=== PATIENT | male | born 1965 | race Caucasian/White ===

== ENCOUNTER 2017-04-03 18:25 | Inpatient (IN) | payer OTHER ==
[~2017-04-03] VITALS: Ht 149.9 cm; Wt 89.5 kg
[~2017-04-03 18:25] MED LIST: ACET125T2 PO; ACET650S10 PR; ATV5X PO; BISA1TAB15 PO; CITA40TA4 PO; DLN100 PO; ETHO250S PO; IPRASOL4 INH; KLN5X PO; MOML PO; OXYC1CAP5 PO; PHEN100C88 PO; PHEN16.2 PO; PRLSR20 PO; SENN-104 PO; SODIENE PR; TYL325X PO
[2017-04-03] MEDS ORDERED: PIPERACILLIN/TAZOBACTAM 4.5 GM/100ML D5W IV STA (18:32)
[2017-04-03] MEDS ORDERED: ACETAMINOPHEN 500 MG TAB PO STA (18:32)
[2017-04-03] MEDS ORDERED: ALBUT/IPRATROP 3MG/0.5MG NEB 3 ML VIAL INH STA (18:32)
[2017-04-03] MEDS ORDERED: SODIUM CHLORIDE 0.9% 1000ML 500 ML IV ONE (18:32)
--- NOTE | 2017-04-03 18:37 | EMERGENCY ROOM VISIT NOTE ---
History Report prepared by Beccaibanup: Kristina Kong Under the Supervision of: Dr. Nicolas Khan M.D. First contact with patient: 18:26 Stated Complaint: fever/ History of Present Illness The patient is a 51 year old male who presents to the Emergency Room with complaints of a persistent fever. He was brought to the ED via EMS. EMS reports the patient developed a fever yesterday. Today he started "grunting and grimacing", so his sister, who is a nurse, became suspicious that there might be something more serious wrong, as the patient has a history of bowel obstruction. EMS notes the patient was having some difficulty breathing, so he was given Oxygen in the field, which provided good relief. The patient has a signed DNR on file. Lab work from earlier today shows a WBC count of 13, no renal failure, urine was suspicious for infection, and stool C-Diff testing was negative. Source of History: patient, EMS History Limited By: other (MR) Onset: yesterday Position: other (global) Timing: other (persistent) Associated Symptoms: + SOB Review of Systems Unobtainable secondary to mental state. Past Medical & Surgical Medical Problems: (1) Bowel obstruction (2) Cognitive disorder (3) Hydrocephalus (4) Obstructive hydrocephalus (5) Obstructive hydrocephalus (6) Seizure disorder (7) Sepsis (8) UTI (urinary tract infection) Surgical Problems: (1) Colostomy in place (2) Status post ventriculoperitoneal shunt Family History No significant family history Social History Smoking Status: Unknown if Ever Smoked Alcohol Use: none Drug Use: none Marital Status: single Housing Status: retirement Occupation Status: disabled Current/Historical Medications Scheduled Acetazolamide (Acetazolamide), 125 MG PO BID Bisacodyl (Bisacodyl), 5 MG PO DAILY Cholecalciferol (Vitamin D3), 1,000 UNITS PO TID Citalopram (Citalopram Hydrobromide), 40 MG PO DAILY Clonazepam (Clonazepam), 0.5 MG PO BID Ethosuximide (Zarontin), 250 MG PO BID Lorazepam (Lorazepam), 0.5 MG PO BID Phenobarbital (Phenobarbital), 16.2 MG PO 5XDAY Phenytoin (Phenytoin Infatabs), 150 MG PO QPM Phenytoin (Dilantin Chewable), 150 MG PO QAM Sennosides-Docusate Sodium (Senna-S), 2 TAB PO BID Allergies Coded Allergies: No Known Allergies (Unverified , 05/10/15) Physical Exam Vital Signs Date Time Temp Pulse Resp B/P (MAP) Pulse Ox O2 Delivery O2 Flow Rate FiO2 04/03/17 22:04 98 20 113/90 93 Nasal Cannula 4.0 04/03/17 20:59 99 20 115/87 93 Nasal Cannula 2.0 04/03/17 19:27 102 21 155/96 100 Nasal Cannula 4.0 04/03/17 19:06 104 04/03/17 18:41 38.2 103 22 157/110 100 Nasal Cannula 4.0 04/03/17 18:41 100 Nasal Cannula 4.0 Physical Exam GENERAL: Patient is in no acute distress. HEENT: No acute trauma, normocephalic atraumatic, mucous membranes moist, no nasal congestion, no scleral icterus. NECK: No stridor, no adenopathy, no meningismus, trachea is midline. LUNGS: Clear to auscultation bilaterally, no wheeze, no rhonchi, breath sounds equal. HEART: Mildly tachycardic with a regular rhythm, no murmurs. ABDOMEN: Soft, nontender, bowel sounds positive, no hernias, no peritonitis. Ostomy present with an empty bag. EXTREMITIES: No cyanosis or edema, full range of motion of all the joints without pain or difficulty, no signs for acute trauma. NEUROLOGIC: MR noted, awake, moving all extremities. SKIN: No rash, no jaundice, no diaphoresis. Medical Decision & Procedures ER Provider Diagnostic Interpretation: Radiology results as stated below per my review and radiologist interpretation: CHEST ONE VIEW PORTABLE CLINICAL HISTORY: Sepsis. COMPARISON STUDY: Chest radiograph May 24, 2015 FINDINGS: Ventriculostomy catheter is partially imaged. Chronic deformity of the proximal right humerus is incidentally noted. No pneumothorax or pleural effusion is identified. Cardiomediastinal silhouette is stable. Mild interstitial prominence remains unchanged. The appearance of the chest is unchanged. Apparent right hilar fullness is likely due to vessels. This is similar to earlier studies. IMPRESSION: No acute cardiopulmonary findings. No significant change in appearance of the chest. Electronically signed by: Basil Ponce M.D. 04/03/2017 7:[address] OF THE ABDOMEN AND PELVIS WITHOUT CONTRAST CLINICAL HISTORY: Abdominal pain. Possible bowel obstruction. Fever. COMPARISON STUDY: CT of the abdomen and pelvis June 02, 2015. TECHNIQUE: Axial images of the abdomen and pelvis were obtained without IV contrast. Images were reviewed in the axial, sagittal, and coronal planes. A dose lowering technique was utilized adhering to the principles of ALARA. FINDINGS: Visualized portions of the lower chest demonstrate a linear radiodensity within the left lower lobe which is unchanged. This may be within a pulmonary artery. Note is made of moderate right hydronephrosis due to a 7 mm proximal right ureteral calculus. Numerous additional bilateral renal calculi are present. There are no left ureteral calculi. The bladder is distorted and displaced anteriorly. There is mild right perinephric and periureteral ureteral infiltration. Evaluation of the remainder of the abdomen and pelvis is suboptimal as unenhanced exam. Several water attenuation hepatic lesions likely reflect cysts. Unenhanced images of the spleen, adrenal glands and pancreas are unremarkable. There are findings suggestive of a diverting colostomy. A parastomal hernia is noted which contains multiple loops of bowel. There is no resultant bowel obstruction. There is a large amount of stool within the rectum. No pneumatosis, free air or portal venous gas is present. Ventriculostomy catheter is noted and terminates within the right mid abdomen. Visualized portions of the catheter appear intact. The lumbar spine compression fractures are noted. IMPRESSION: 1. Moderate right hydronephrosis due to a 7 mm proximal right ureteral calculus. 2. Bilateral nephrolithiasis. 3. Status post diverting loop colostomy. Associated parastomal hernia/diastasis recti which contains multiple bowel loops without resultant bowel obstruction. Massive amount of stool within the rectum consistent with fecal impaction. Electronically signed by: Basil Ponce M.D. 04/03/2017 9:08 PM Laboratory Results 04/03/17 19:00 Red Blood Count 5.03, Mean Corpuscular Volume 94.2, Mean Corpuscular Hemoglobin 31.0, Mean Corpuscular Hemoglobin Concent 32.9, Mean Platelet Volume 11.2, Neutrophils (%) (Auto) 74.4, Lymphocytes (%) (Auto) 11.9, Monocytes (%) (Auto) 12.1, Eosinophils (%) (Auto) 1.0, Basophils (%) (Auto) 0.3, Neutrophils # (Auto ) 11.42, Lymphocytes # (Auto) 1.83, Monocytes # (Auto) 1.86, Eosinophils # (Auto ) 0.16, Basophils # (Auto) 0.05 04/03/17 19:00 04/03/17 21:00 Test 04/03/17 19:00 04/03/17 19:07 04/03/17 19:15 04/03/17 21:00 White Blood Count 15.36 K/uL (4.8-10.8) Red Blood Count 5.03 M/uL (4.7-6.1) Hemoglobin 15.6 g/dL (14.0-18.0) Hematocrit 47.4 % (42-52) Mean Corpuscular Volume 94.2 fL (80-100) Mean Corpuscular Hemoglobin 31.0 pg (25-34) Mean Corpuscular Hemoglobin Concent 32.9 g/dl (32-36) Platelet Count 283 K/uL (130-400) Mean Platelet Volume 11.2 fL (7.4-10.4) Neutrophils (%) (Auto) 74.4 % Lymphocytes (%) (Auto) 11.9 % Monocytes (%) (Auto) 12.1 % Eosinophils (%) (Auto) 1.0 % Basophils (%) (Auto) 0.3 % Neutrophils # (Auto) 11.42 K/uL (1.4-6.5) Lymphocytes # (Auto) 1.83 K/uL (1.2-3.4) Monocytes # (Auto) 1.86 K/uL (0.11-0.59) Eosinophils # (Auto) 0.16 K/uL (0-0.5) Basophils # (Auto) 0.05 K/uL (0-0.2) RDW Standard Deviation 47.3 fL (36.4-46.3) RDW Coefficient of Variation 13.8 % (11.5-14.5) Immature Granulocyte % (Auto) 0.3 % Immature Granulocyte # (Auto) 0.04 K/uL (0.00-0.02) Anion Gap 7.0 mmol/L (3-11) Est Creatinine Clear Calc Drug Dose 102.1 ml/min Estimated GFR () 121.1 Estimated GFR (Non- 104.5 BUN/Creatinine Ratio 12.1 (10-20) Calcium Level 9.3 mg/dl (8.5-10.1) Total Bilirubin 0.3 mg/dl (0.2-1) Alanine Aminotransferase (ALT/SGPT) 20 U/L (12-78) Alkaline Phosphatase 122 U/L (45-117) Total Protein 8.7 gm/dl (6.4-8.2) Albumin 3.1 gm/dl (3.4-5.0) Globulin 5.6 gm/dl (2.5-4.0) Albumin/Globulin Ratio 0.6 (0.9-2) Bedside Lactic Acid Venous 1.36 mmol/L (0.90-1.70) Urine Color YELLOW Urine Appearance CLOUDY (CLEAR) Urine pH 6.5 (4.5-7.5) Urine Specific [place] 1.013 (1.000-1.030) Urine Protein TRACE (NEG) Urine Glucose (UA) NEG (NEG) Urine Ketones NEG (NEG) Urine Occult Blood 1+ (NEG) Urine Nitrite NEG (NEG) Urine Bilirubin NEG (NEG) Urine Urobilinogen NEG (NEG) Urine Leukocyte Esterase LARGE (NEG) Urine WBC (Auto) >30 /hpf (0-5) Urine RBC (Auto) 0-4 /hpf (0-4) Urine Hyaline Casts (Auto) 1-5 /lpf (0-5) Urine Epithelial Cells (Auto) 5-10 /lpf (0-5) Urine Bacteria (Auto) 4+ (NEG) Prothrombin Time 11.5 SECONDS (9.0-12.0) Prothromb Time International Ratio 1.1 (0.9-1.1) Activated Partial Thromboplast Time 31.4 SECONDS (21.0-31.0) Partial Thromboplastin Ratio 1.2 Magnesium Level 1.8 mg/dl (1.8-2.4) Aspartate Amino Transf (AST/SGOT) 18 U/L (15-37) Phenytoin (Dilantin) Level 13.0 mcg/mL (10-20) Phenobarbital Level 15.9 mcg/mL (15.0-40.0) Laboratory results reviewed by me. Medications Administered Medications (Trade) Dose Ordered Sig/Jose A Route Start Time Stop Time Status Last Admin Dose Admin Sodium Chloride 500 ml @ 999 mls/hr Q31M ONCE IV 04/03/17 18:32 04/03/17 19:02 DC 04/03/17 19:22 999 MLS/HR Piperacillin Sod/ Tazobactam Sod (Zosyn Iv) 4.5 gm ONE STAT IV 04/03/17 18:32 04/03/17 18:35 DC 04/03/17 19:25 4.5 GM Acetaminophen (Tylenol Tab) 1,000 mg NOW STAT PO 04/03/17 18:32 04/03/17 18:36 DC 04/03/17 19:25 1,000 MG Albuterol/ Ipratropium (Duoneb) 3 ml NOW STAT INH 04/03/17 18:32 04/03/17 18:36 DC 04/03/17 19:25 3 ML ECG Indication: other (fever) Rate (beats per minute): 106 Rhythm: sinus tachycardia Findings: no acute ischemic change, no ectopy ED Course 1825: The patient was evaluated in room A2. A complete history and physical exam was performed. 1831: Duoneb 3 ml INH, Acetaminophen 1000 mg PO, Zosyn 4.5 hm IV, NSS 500 ml @ 999 mls/hr IV. 2118: I discussed the patients case with Dr. Michaels, [facility] Hospitalist. The patient will be further evaluated. 2122: I discussed the patients case with Dr. Bello, [facility]. The patient will be further evaluated. 2124: I reevaluated the patient. He is resting comfortably and his sister is at the bedside. I discussed my recommendation that he remain in the hospital for further evaluation and management and she verbalized complete understanding and agreement. Medical Decision The differential diagnoses considered include sepsis, bacteremia, UTI, pneumonia , cellulitis, dehydration, electrolyte imbalance, bowel obstruction, viral illness and bronchitis. There is a moderate leukocytosis which would be consistent with infection, no concerning anemia. No significant electrolyte abnormality or kidney failure. There was no hepatitis. Urinalysis does suggest infection, urine culture and blood cultures are pending. Chest film does not show pneumonia or CHF. Lactic acid level was not elevated making severe sepsis less likely. Abdominal and pelvis CT does not show any bowel obstruction. The patient does have right- sided hydronephrosis from a proximal right ureteral stone. The patient received IV saline, oral Tylenol. Was given a DuoNeb. He was given IV Zosyn for antibiotic coverage. The patient requires hospitalization. He is febrile with a UTI. He also has a right hydronephrosis from an obstructing stone. I spoke to case management as well as the on-call hospitalist. Urology has been consulted for the possibility of an emergent ureteral stent. I spoke to the patient's sister about all of our findings. Inpatient care is required. Medication Reconcilliation Current Medication List: was personally reviewed by me Blood Pressure Screening Patient's blood pressure: Elevated blood pressure Blood pressure disposition: Referred to PCP Consults Time Called: 2116 Consulting Physician: [facility] Returned Call: 2118 I [facility] The patient will be further evaluated. Additional Consults: Time Called: 2119 Consulted Physician: [facility] Returned Call: 2122 Additional Comments: I discussed the patients case with [facility]. The patient will be further evaluated. Impression Primary Impression: UTI (urinary tract infection) Additional Impressions: Fever Hydronephrosis of right kidney Scribe Attestation The scribe's documentation has been prepared under my direction and personally reviewed by me in its entirety. I confirm that the note above accurately reflects all work, treatment, procedures, and medical decision making performed by me. Departure Information Dispostion Being Evaluated By Hospitalist Referrals Lisa Blackmon M.D. (PCP) Problem Qualifiers
[2017-04-03] MEDS ORDERED: PHEN50CH PO (19:01)
--- NOTE | 2017-04-03 19:04 | DIAGNOSTIC IMAGING REPORT ---
CHEST ONE VIEW PORTABLE CLINICAL HISTORY: Sepsis. COMPARISON STUDY: Chest radiograph May 24, 2015 FINDINGS: Ventriculostomy catheter is partially imaged. Chronic deformity of the proximal right humerus is incidentally noted. No pneumothorax or pleural effusion is identified. Cardiomediastinal silhouette is stable. Mild interstitial prominence remains unchanged. The appearance of the chest is unchanged. Apparent right hilar fullness is likely due to vessels. This is similar to earlier studies. IMPRESSION: No acute cardiopulmonary findings. No significant change in appearance of the chest. Electronically signed by: Basil Ponce M.D. 04/03/2017 7:03 PM Dictated Date/Time: 04/03/2017 7:00 PM
[2017-04-03] MEDS ORDERED: CHOL1000 PO (19:10)
[2017-04-03 19:19] LABS: BASO % 0.3 %; BASO ABS # 0.05 K/uL (0-0.2); COMPLETE YES; HEMATOCRIT 47.4 % (42-52); IG% 0.3 %; LYMPH % 11.9 %; LYMPH ABS # 1.83 K/uL (1.2-3.4); MEAN CELL VOLUME 94.2 fL (80-100); MEAN CORPUSCULAR HGB CONC 32.9 g/dl (32-36); MEAN PLATELET VOLUME 11.2 fL (7.4-10.4); MONO % 12.1 %; NEUT % 74.4 %; PLATELET COUNT 283 K/uL (130-400); RED BLOOD COUNT 5.03 M/uL (4.7-6.1); WHITE BLOOD COUNT 15.36 K/uL (4.8-10.8)
[2017-04-03 19:40] LABS: URINE APPEARANCE CLOUDY (CLEAR); URINE BILIRUBIN NEG (NEG); URINE COLOR YELLOW; URINE NITRITE NEG (NEG); URINE PH 6.5 (4.5-7.5); URINE SPECIFIC GRAVITY 1.013 (1.000-1.030); UROBILINOGEN NEG (NEG); ZZURINE CULT IF INDIC CATH YES
[2017-04-03 19:40] LABS: ALB/GLOB RATIO 0.6 (0.9-2); ALKALINE PHOSPHATASE 122 U/L (45-117); ALT/SGPT 20 U/L (12-78); BLOOD UREA NITROGEN 9 mg/dl (7-18); BUN/CREATININE RATIO 12.1 (10-20); CALCIUM 9.3 mg/dl (8.5-10.1); CARBON DIOXIDE 28 mmol/L (21-32); CHLORIDE 105 mmol/L (98-107); CREATININE 0.78 mg/dl (0.60-1.40); GLUCOSE 109 mg/dl (70-99); SODIUM 140 mmol/L (136-145)
[2017-04-03 19:47] LABS: MANUAL MICROSCOPIC REQUIRED? NO; REVIEW REQ? NO
--- NOTE | 2017-04-03 21:09 | DIAGNOSTIC IMAGING REPORT ---
CT OF THE ABDOMEN AND PELVIS WITHOUT CONTRAST CLINICAL HISTORY: Abdominal pain. Possible bowel obstruction. Fever. COMPARISON STUDY: CT of the abdomen and pelvis June 02, 2015. TECHNIQUE: Axial images of the abdomen and pelvis were obtained without IV contrast. Images were reviewed in the axial, sagittal, and coronal planes. A dose lowering technique was utilized adhering to the principles of ALARA. FINDINGS: Visualized portions of the lower chest demonstrate a linear radiodensity within the left lower lobe which is unchanged. This may be within a pulmonary artery. Note is made of moderate right hydronephrosis due to a 7 mm proximal right ureteral calculus. Numerous additional bilateral renal calculi are present. There are no left ureteral calculi. The bladder is distorted and displaced anteriorly. There is mild right perinephric and periureteral ureteral infiltration. Evaluation of the remainder of the abdomen and pelvis is suboptimal as unenhanced exam. Several water attenuation hepatic lesions likely reflect cysts. Unenhanced images of the spleen, adrenal glands and pancreas are unremarkable. There are findings suggestive of a diverting colostomy. A parastomal hernia is noted which contains multiple loops of bowel. There is no resultant bowel obstruction. There is a large amount of stool within the rectum. No pneumatosis, free air or portal venous gas is present. Ventriculostomy catheter is noted and terminates within the right mid abdomen. Visualized portions of the catheter appear intact. The lumbar spine compression fractures are noted. IMPRESSION: 1. Moderate right hydronephrosis due to a 7 mm proximal right ureteral calculus. 2. Bilateral nephrolithiasis. 3. Status post diverting loop colostomy. Associated parastomal hernia/diastasis recti which contains multiple bowel loops without resultant bowel obstruction. Massive amount of stool within the rectum consistent with fecal impaction. Electronically signed by: Basil Ponce M.D. 04/03/2017 9:08 PM Dictated Date/Time: 04/03/2017 8:56 PM
[2017-04-03 21:25] LABS: INR 1.1 (0.9-1.1); PARTIAL THROMBOPLASTIN RATIO 1.2; PROTHROMBIN TIME (PATIENT) 11.5 SECONDS (9.0-12.0)
[2017-04-03 21:38] LABS: PHENOBARBITAL 15.9 mcg/mL (15.0-40.0)
[2017-04-03 21:40] LABS: POTASSIUM 3.5 mmol/L (3.5-5.1)
[2017-04-03 21:45] LABS: MAGNESIUM 1.8 mg/dl (1.8-2.4)
--- NOTE | 2017-04-03 22:21 | Urology Consultation ---
History General Date of Service: Apr 03, 2017. Chief Complaint: Obstructing stone Primary Care Physician: Lisa Blackmon M.D. Pt seen a urologist before?: No History of Present Illness 52 yo patient with Had 1 week of issues and worsening confusion. Family brought to ER. Found to obstructing stone on right with hydronephrosis and perinephric stranding. + Fever and white count elevation with contaminated urine. Patient poor historian. Sister is bedside and giving history. Patient has diverting ostomy with large parastomal hernia. HPI - Stones Location: right, ureter Pain: right flank Imaging Imaging: CT Laboratory Labs were reviewed and are within normal limits unless listed below. Labs are available in the chart and at [facility] Problem List Medical Problems: (1) Fever Status: Acute (2) Hydronephrosis of right kidney Status: Acute (3) UTI (urinary tract infection) Status: Acute Past History bowel obstruction, diverticulitis, pyelonephritis, seizure, urinary tract infection Past Surgical History: colectomy, exploratory laparoscopy Family History No significant family history Social History Hx Tobacco Use In Past Year?: No Marital status: single Occupation status: disabled History of MDRO Yes Type of MDRO: VRE Allergies Coded Allergies: No Known Allergies (Unverified , 05/10/15) Medications Home Medications: Home Meds and Scripts Medications Dose Route/Sig Max Daily Dose Days Date Category Dose Instructions Vitamin D3 (Cholecalciferol) 1,000 Unit Tab 1,000 Units PO TID 04/03/17 Reported Dilantin Chewable (Phenytoin) 50 Mg Chw 150 Mg PO QAM 04/03/17 Reported THREE TABLET DOSE Phenytoin Infatabs (Phenytoin) 50 Mg Chw 150 Mg PO QPM 06/02/15 Reported THREE TABLET DOSE Phenobarbital 16.2 Mg Tab 16.2 Mg PO 5XDAY 05/10/15 Reported Senna-S (Sennosides-Docusate Sodium) 1 Tab Tab 2 Tab PO BID 05/10/15 Reported Lorazepam 0.5 Mg Tab 0.5 Mg PO BID 05/10/15 Reported Zarontin (Ethosuximide) 250 Mg/5 Ml [place] 250 Mg PO BID 05/10/15 Reported Clonazepam 0.5 Mg Tab 0.5 Mg PO BID 05/10/15 Reported Acetazolamide 125 Mg Tab 125 Mg PO BID 05/10/15 Reported Citalopram Hydrobromide (Citalopram) 40 Mg Tab 40 Mg PO DAILY 05/10/15 Reported Bisacodyl 5 Mg Tab 5 Mg PO DAILY 05/10/15 Reported Review of Systems Review of Systems Additional Comments: All reviewed. Patient poor historian. Information from family and limited. See HPI Physical Exam Vital Signs: Vital Signs Past 12 Hours Date Time Temp Pulse Resp B/P (MAP) Pulse Ox O2 Delivery O2 Flow Rate FiO2 04/03/17 22:04 98 20 113/90 93 Nasal Cannula 4.0 04/03/17 20:59 99 20 115/87 93 Nasal Cannula 2.0 04/03/17 19:27 102 21 155/96 100 Nasal Cannula 4.0 04/03/17 19:06 104 04/03/17 18:41 38.2 103 22 157/110 100 Nasal Cannula 4.0 04/03/17 18:41 100 Nasal Cannula 4.0 Physical Exam: General Appearance: no apparent distress ENT: normal ENT inspection Neck: no JVD Respiratory/Chest: no respiratory distress, no accessory muscle use Cardiovascular: regular rate, rhythm Extremities: normal range of motion 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 2 UTI with SIRS/Fever 3 Fecal Impaction with Parastomal Hernia Long conversation of options and benefits with patient's family. Patient unable to make medical decisions. Lives in care facility. Sister state's she is primary residential caregiver prior. Worrisome for sepsis development. Patient previously fragile to infections. Will consent for urgent right stent placement and longo placement. Risks and benefits discussed. Will proceed to OR this evening. Admitting with Hospitalists. IV antibiotics and close monitoring. May need surgical assessment of large parastomal hernia with impaction.
[2017-04-03] MEDS ORDERED: CONRAY 30% 150ML BOTTLE ONE (22:34)
[2017-04-03] MEDS ORDERED: PIPERACILL/TAZOBAC IV 4.5 GM in DEXTROSE 5% 100ML 100 ML IV SCH (23:00)
[2017-04-03] MEDS ORDERED: MIDAZOLAM HCL 1 MG/ML 2ML VIAL ONE ×2 (23:05→23:36)
[2017-04-03] MEDS ORDERED: FENTANYL CITRATE INJ 50 MCG/1 ML 2 ML VIAL ONE ×2 (23:05→23:39)
[2017-04-03] MEDS ORDERED: ONDANSETRON INJ 2 MG/ML 2 ML VIAL IV PRN (23:15)
[2017-04-03] MEDS ORDERED: ACETAMINOPHEN 325 MG TAB PO PRN (23:15)
[2017-04-04] VITALS (10 sets, daily range): BP systolic 100–132; BP diastolic 67–92; PULSE 98–107; TEMP 36.4–37.8; O2SAT 91–98; Ht 149.9 cm; Wt 89.5 kg
[2017-04-04] MEDS ORDERED: PROPOFOL IV EMULSION 10 MG/ML 20 ML VIAL IV ONE (01:53)
[2017-04-04] MEDS ORDERED: LIDOCAINE HCL 2% 2 ML VIAL (20MG/ML) ONE (01:53)
[2017-04-04] MEDS ORDERED: ATROPINE SULFATE 0.1 MG/ML 5ML SYR IV PRN (02:00)
[2017-04-04] MEDS ORDERED: LABETALOL HCL IV 5 MG/ML 20ML IV PRN (02:00)
[2017-04-04] MEDS ORDERED: FENTANYL CITRATE INJ 50 MCG/1 ML 2 ML VIAL IV PRN (02:00)
[2017-04-04] MEDS ORDERED: ONDANSETRON INJ 2 MG/ML 2 ML VIAL IV PRN (02:00)
[2017-04-04] MEDS ORDERED: FENTANYL CITRATE INJ 50 MCG/1 ML 2 ML VIAL ONE (02:01)
--- NOTE | 2017-04-04 02:21 | [facility] Operative Report ---
Operative Report Operative Date Apr 04, 2017. Pre-Operative Diagnosis Obstructing Right Ureteral Stone with Hydronephrosis and Fever Post-Operative Diagnosis Obstructing Right Ureteral Stone with Hydronephrosis and Fever Procedure(s) Performed Cystoscopy, Retrograde, Right Ureteroscopy, Balloon Dilation, Insertion of Right Ureteral Catheter Surgeon Dr. Bello Cut Off Sawyer Log Surgeon(s) none Estimated Blood Loss 20 ml Findings Pinpoint stricture of right proximal ureter. Large Purulent discharge right kidney Micropenis with high bladder neck. Distended bladder likely secondary to dysfunctional voiding. Fluids See Anes Report Specimens Urine right kidney for culture and sensitivity Drains 5 Fr Open-ended ureteral catheter. 16 [place] Tip [place] Anesthesia MAC Complication(s) None Disposition Recovery Room / PACU Indications Obstructing stone with sepsis Description of Procedure Patient was consented via his MPOA after discussion of risks and benefits. Patient was brought back to the operating room. Patient was placed under anesthesia and into the dorsal lithotomy position. A time out was completed. A 30degree Cystoscope was placed into the bladder. The bladder was examined. It was found to be large and trabeculated, likely due to long history of dysfunctional voiding. The bladder neck was at a high angle and difficult to maneuver the scope once placed. At this point a wire was placed into the bladder for access and the bladder emptied. A flexible ureteroscope was placed and the bladder further surveyed. The left UO was identified, but the Right UO was difficult to identify. Anatomy and Habitus limited mobility. The rigid scope was replaced. After exhaustive search of the base of the bladder, the right UO was identified and accessed with a 5 fr Open ended catheter. This was advanced to the mid ureter and a retrograde pyelogram was completed. Complete obstruction was noted at the proximal ureter. The ureter was also noted to be tortuous. A wire was attempted to be placed. After manipulation, the wire was able to be advanced past the place of stricture. Multiple attempts to place open ended catheters over the wire were attempted. A second safety wire was placed into the ureter, but was unable to access past the stricture. Due to the difficulty in identifying the ureter, it was decided to place a ureteral access sheath over the safety wire. It was taken to the area of obstruction and a flexible ureteroscope was advanced. A pinpoint stricture was identified. Further attempts to visualize passage of a catheter failed. At this point, a 4 cm balloon dilator was selected and under fluoroscopy, the pinpoint stricture was dilated to 8 and then 10mmhg. The balloon was advanced and the area dilated again, under visualization. Once dilated, an attempt was made to visualize the catheter placement, which was unable to pass. At this point the ureteroscope was removed and the safety wire replaced. A new 5 Fr Catheter was then attempted over the wire, and this was able to bypass the area of stricture. With the catheter in place, an aspiration was completed. A large amount of purulent discharge was collected and sent as specimen. Due to difficulty with access and visualization, as well as scope maneuverability in the bladder, the catheter was left in place. A wire was placed into the bladder and a 16 Fr [place] tip catheter was passed over the wire into the bladder. The bladder was drained and the catheters were connected and set to bedside drainage. The patient was cleaned, aroused from anesthesia, and transferred to the pacu in stable condition having tolerated the procedure well with no complications. I was present and participated in all aspects of the procedure. The patient will be monitored in the PACU until transferred. Will likely need to continue with critical care monitoring and hydration and antibiotic therapy. Plan to follow closely. I attest to the content of the Intraoperative Record and any orders documented therein. Any exceptions are noted below.
--- NOTE | 2017-04-04 02:58 | Anesthesiology Progress Note ---
Anesthesia Post Op Note Date & Time Apr 04, 2017 at 02:58 Vital Signs Pain Intensity: 0 Vital Signs Past 12 Hours Date Time Temp Pulse Resp B/P (MAP) Pulse Ox O2 Delivery O2 Flow Rate FiO2 04/04/17 02:20 36 96 20 111/91 97 Nasal Cannula 3 04/04/17 02:10 95 20 129/90 95 Nasal Cannula 3 04/04/17 02:00 98 20 135/89 99 Oxymask 10 04/04/17 01:50 96 20 139/89 99 Oxymask 10 04/04/17 01:43 36.1 93 20 141/97 99 Oxymask 10 04/03/17 22:04 98 20 113/90 93 Nasal Cannula 4.0 04/03/17 20:59 99 20 115/87 93 Nasal Cannula 2.0 04/03/17 19:27 102 21 155/96 100 Nasal Cannula 4.0 04/03/17 19:06 104 04/03/17 18:41 38.2 103 22 157/110 100 Nasal Cannula 4.0 04/03/17 18:41 100 Nasal Cannula 4.0 Notes Mental Status: alert / awake / arousable, participated in evaluation Pt Amnestic to Procedure: Yes Nausea / Vomiting: adequately controlled Pain: adequately controlled Airway Patency, RR, SpO2: stable & adequate BP & HR: stable & adequate Hydration State: stable & adequate Anesthetic Complications: no major complications apparent
[2017-04-04] MEDS ORDERED: PIPERACILL/TAZOBAC CONSULT ACTIVE PRN (03:15)
[2017-04-04] MEDS: NSS + 20MEQ KCL 1000ML 1,000 ML IV SCH ×2 (03:20→12:42)
[2017-04-04] MEDS ORDERED: PIPERACILL/TAZOBAC IV 4.5 GM in DEXTROSE 5% 100ML IV ONE (03:30)
--- NOTE | 2017-04-04 03:34 | HISTORY & PHYSICAL EXAMINATION ---
DATE OF ADMISSION: 04/03/2017 PRIMARY CARE PROVIDER: None mentioned but seen by [facility] physician. CHIEF COMPLAINT: Not feeling well since yesterday with flushed facies and increasing grimacing. 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 Apparently lives in [facility]. snf staff called his sister yesterday, letting her know that the patient is not doing well, did have some abdominal pain, they did a KUB that was unremarkable, and then nursing was going to do few blood work on Wednesday. Sister went to see him today and noted him to be ill with more grimacing of the face and discomfort. From that point, he was taken to the Emergency Room. In the ER, he was noted to have temperature of 38.2, tachycardia 103, white count 15.6. UA is suggestive of infection and CT of the abdomen showed 7 mm proximal right ureteral calculus with moderate right hydronephrosis. From that point, urine culture was taken and he was started on Zosyn and urologic consultation was taken and the patient was admitted to medical floor. PAST MEDICAL HISTORY: Significant for severe intellectual disabilities secondary to obstructive hydrocephalus, seizure disorder, depression with occasional agitation, history of dysphasia and also dysthymic disorder. PAST SURGICAL HISTORY: Significant for removal of brain cavity fluid and status post colostomy. FAMILY HISTORY: Nothing noted in the chart. SOCIAL HISTORY: Single. He lives in a [facility] and he requires assistance in all ADLs and he has been bedbound. ALLERGIES: NKDA. MEDICATIONS: He has been on bisacodyl 5 mg daily, vitamin D3 1000 units 3 times daily, Celexa 40 mg daily, clonazepam 0.5 mg twice daily, lorazepam 0.5 mg twice daily for agitation, phenobarbital 16.2 mg 5 times daily, Dilantin 150 mg in the morning, Dilantin 150 mg at night, Senna 2 tablets b.i.d., acetazolamide 125 mg b.i.d. and Zarontin 250 mg b.i.d. REVIEW OF SYSTEMS: Not possible with the patient's general condition. PHYSICAL EXAMINATION: GENERAL: On examination in the Emergency Room, he was having minimal distress at rest, especially complaining of some pain in the abdomen, but otherwise unremarkable. VITAL SIGNS: Temperature 38.2, pulse 103, blood pressure 113/90, saturation 93% on 4 liters nasal cannula. HEENT: Unremarkable. NECK: Supple. No JVD, no bruit. CHEST: Decreased breath sounds but otherwise clear. HEART: S1, S2 regular. ABDOMEN: Distended, slightly tender in the lower quadrant. Right renal angle minimally tender. Colostomy site is intact. Bowel sounds present. EXTREMITIES: Trace edema. Has deformity more on the right side than the left side. CENTRAL NERVOUS SYSTEM: Alert, awake. Has severe mental retardation. Has deformity involving the right upper and lower extremities with minimal movement. Left upper and lower extremities move, again minimally. LABORATORY DATA: Noted today, white count was 15.36, H&H 15.56/47.4, platelet was 283. Sodium 140, potassium 3.5, chloride 105, carbon dioxide 28, BUN 9, creatinine 0.78, random glucose 109. Lactic acid was 1.36. Magnesium 1.8. Liver enzymes, alkaline phosphatase slightly elevated at 122, albumin was 3.1. PT/INR unremarkable. Phenytoin level was 13 and phenobarbital level 15. Chest x-ray, no acute cardiopulmonary findings. CT of the abdomen and pelvis reported as moderate right hydronephrosis due to a 7 mm proximal right ureter calculus, bilateral nephrolithiasis, status post diverting loop colostomy, associated parastomal hernia/diastasis recti which contains multiple bowel loops without resultant bowel obstruction, massive amount of stool within the rectum consistent with fecal impaction. Also, stool antigen was positive for campylobacter, but the culture is pending. IMPRESSION AND PLAN: 1. Urinary tract infection secondary to obstructive uropathy with right hydronephrosis. He will be admitted to medical floor. Intravenous fluid, urine culture was sent, and he was started on Zosyn. Urology consultation was taken and most likely he will be going to OR for ureteral stent placement and relief of the obstruction. 2. Obstructive hydrocephalus with severe mental retardation. No acute symptoms at this time. 3. Seizure disorder secondary to obstructive hydrocephalus. Continue with current medications. Phenobarbital level is therapeutic, phenytoin level is within therapeutic range too. Continue with current medications. 4. Anxiety/depression with occasional agitation. Continue with current medications. 5. Gastrointestinal prophylaxis with Protonix. 6. Deep venous thrombosis prophylaxis with subcutaneous heparin. 7. Code status. Discussed with LAUREANO, his sister. He is a DNR. 8.Campylobacter antigen is positive.No symptoms reported.Observe In my clinical judgment, this beneficiary meets criteria as per CMS for 2-midnight stay in the hospital. DANG
[2017-04-04] MEDS: PHENOBARBITAL 32.4 MG TAB PO SCH ×5 (06:06→19:08)
[2017-04-04] MEDS: HEPARIN SOD 5000 UNIT/0.5 ML CARP SQ SCH ×3 (06:07→21:30)
[2017-04-04] MEDS: HYDROmorphone INJ 0.5 MG/0.5 ML SYR IV PRN ×3 (06:08→20:24)
[2017-04-04 06:19] LABS: HEMATOCRIT 45.9 % (42-52); MEAN CELL VOLUME 94.8 fL (80-100); MEAN CORPUSCULAR HEMOGLOBIN 30.8 pg (25-34); MEAN CORPUSCULAR HGB CONC 32.5 g/dl (32-36); MEAN PLATELET VOLUME 11.4 fL (7.4-10.4); PLATELET COUNT 260 K/uL (130-400); RED BLOOD COUNT 4.84 M/uL (4.7-6.1); WHITE BLOOD COUNT 18.89 K/uL (4.8-10.8)
[2017-04-04 06:53] LABS: BUN/CREATININE RATIO 9.4 (10-20); CALCIUM 8.3 mg/dl (8.5-10.1); CREATININE 0.74 mg/dl (0.60-1.40); MAGNESIUM 1.8 mg/dl (1.8-2.4); PHOSPHORUS 2.9 mg/dl (2.5-4.9); POTASSIUM 3.7 mmol/L (3.5-5.1)
[2017-04-04] MEDS: PIPERACILL/TAZOBAC IV 4.5 GM in DEXTROSE 5% 100ML IV SCH ×2 (07:42→16:07)
--- NOTE | 2017-04-04 08:16 | DIAGNOSTIC IMAGING REPORT ---
RETROGRADE INCLUDES KUB HISTORY: CYSTO FLUOROSCOPY TIME: 16 minutes and 45 seconds. FINDINGS: 6 fluoroscopic spot images were submitted for review. Initial images demonstrate a catheter within the right ureter placed in a retrograde fashion with contrast injected into the dilated right renal collecting system. This is followed by placement of a guidewire and right ureteral stent. IMPRESSION: Fluoroscopy provided for right ureteral stent placement. Electronically signed by: Irwin Magallon M.D. 04/04/2017 8:14 AM Dictated Date/Time: 04/04/2017 8:13 AM
[2017-04-04] MEDS: LORAZEPAM 0.5 MG TAB PO SCH ×2 (09:02→20:24)
[2017-04-04] MEDS: CITALOPRAM 40 MG TAB PO SCH (09:03)
[2017-04-04] MEDS: AcetaZOLAMIDE 250 MG TAB PO SCH ×2 (09:05→20:24)
[2017-04-04] MEDS: PHENYTOIN 50 MG CHEW PO SCH (09:07)
[2017-04-04] MEDS: BISACODYL 5 MG TABEC PO SCH (09:09)
[2017-04-04] MEDS: CLONAZEPAM 0.5 MG TAB PO SCH ×2 (09:09→20:24)
[2017-04-04] MEDS: DOCUSATE SODIUM/SENNA 50/8.6MG TAB PO SCH ×2 (09:10→20:25)
[2017-04-04] MEDS: CHOLECALCIFEROL 1000 INTER.UNIT TAB PO SCH ×3 (09:10→20:26)
[2017-04-04] MEDS: TRAMADOL HCL 50 MG TAB PO SCH (16:08)
--- NOTE | 2017-04-04 17:36 | Progress Note ---
Medicine Progress Note Date & Time of Visit: Apr 04, 2017 at 10:23. Subjective tolerating PO verbalizing to me that he is not in pain, but did moan somewhat when I tried to move his arm around good urine output into longo after difficult procedure overnight-ureteral catheter in place--scant blood clots in longo bag. some fevers present colostomy bag in place Objective Last 8 Hrs Date Time Temp Pulse Resp B/P (MAP) Pulse Ox O2 Delivery O2 Flow Rate FiO2 04/04/17 07:47 36.4 98 18 111/77 (88) 91 Nasal Cannula 1.0 04/04/17 07:35 Nasal Cannula 2.0 04/04/17 05:37 37.4 101 18 119/81 (94) 93 Nasal Cannula 2.0 04/04/17 04:35 37.0 100 19 106/67 (80) 94 Nasal Cannula 2.0 04/04/17 03:45 37.8 103 20 119/77 (91) 97 Room Air 04/04/17 03:15 37.2 101 19 100/70 (80) 98 Nasal Cannula 2.0 04/04/17 02:45 95 Nasal Cannula 2.0 04/04/17 02:45 37.0 102 18 132/92 95 Nasal Cannula 2.0 Physical Exam: GEN: WNWD, in no acute distress, alert, developmental delay was noted. HEENT: NC/AT, normal sclerae, MMM CARDIO: reg rate, S1/2 heard without m/g/r LUNGS: CTA bilaterally, no crackles, rales or wheezes, good diaphragmatic excursion ABD: soft, non-tender, non-distended, no rebound or guarding, +BS, colostomy bag in place EXTREMITY: RP and DP palpable 2+ bilat, no LE swelling or edema, extremities are warm and well-perfused NEURO: CN 2-12 grossly intact SKIN: warm and dry Laboratory Results: 04/04/17 05:12 04/04/17 05:12 Test 04/03/17 19:00 04/03/17 19:07 04/03/17 19:15 04/03/17 21:00 Immature Granulocyte % (Auto) 0.3 % White Blood Count 15.36 K/uL (4.8-10.8) Red Blood Count 5.03 M/uL (4.7-6.1) Hemoglobin 15.6 g/dL (14.0-18.0) Hematocrit 47.4 % (42-52) Mean Corpuscular Volume 94.2 fL (80-100) Mean Corpuscular Hemoglobin 31.0 pg (25-34) Mean Corpuscular Hemoglobin Concent 32.9 g/dl (32-36) Platelet Count 283 K/uL (130-400) Mean Platelet Volume 11.2 fL (7.4-10.4) Neutrophils (%) (Auto) 74.4 % Lymphocytes (%) (Auto) 11.9 % Monocytes (%) (Auto) 12.1 % Eosinophils (%) (Auto) 1.0 % Basophils (%) (Auto) 0.3 % Neutrophils # (Auto) 11.42 K/uL (1.4-6.5) Lymphocytes # (Auto) 1.83 K/uL (1.2-3.4) Monocytes # (Auto) 1.86 K/uL (0.11-0.59) Eosinophils # (Auto) 0.16 K/uL (0-0.5) Basophils # (Auto) 0.05 K/uL (0-0.2) Immature Granulocyte # (Auto) 0.04 K/uL (0.00-0.02) Total Bilirubin 0.3 mg/dl (0.2-1) Alanine Aminotransferase (ALT/SGPT) 20 U/L (12-78) Alkaline Phosphatase 122 U/L (45-117) Total Protein 8.7 gm/dl (6.4-8.2) Albumin 3.1 gm/dl (3.4-5.0) Globulin 5.6 gm/dl (2.5-4.0) Albumin/Globulin Ratio 0.6 (0.9-2) Bedside Lactic Acid Venous 1.36 mmol/L (0.90-1.70) Urine Color YELLOW Urine Appearance CLOUDY (CLEAR) Urine pH 6.5 (4.5-7.5) Urine Specific [place] 1.013 (1.000-1.030) Urine Protein TRACE (NEG) Urine Glucose (UA) NEG (NEG) Urine Ketones NEG (NEG) Urine Occult Blood 1+ (NEG) Urine Nitrite NEG (NEG) Urine Bilirubin NEG (NEG) Urine Urobilinogen NEG (NEG) Urine Leukocyte Esterase LARGE (NEG) Urine WBC (Auto) >30 /hpf (0-5) Urine RBC (Auto) 0-4 /hpf (0-4) Urine Hyaline Casts (Auto) 1-5 /lpf (0-5) Urine Epithelial Cells (Auto) 5-10 /lpf (0-5) Urine Bacteria (Auto) 4+ (NEG) Prothrombin Time 11.5 SECONDS (9.0-12.0) Prothromb Time International Ratio 1.1 (0.9-1.1) Activated Partial Thromboplast Time 31.4 SECONDS (21.0-31.0) Partial Thromboplastin Ratio 1.2 Aspartate Amino Transf (AST/SGOT) 18 U/L (15-37) Phenytoin (Dilantin) Level 13.0 mcg/mL (10-20) Phenobarbital Level 15.9 mcg/mL (15.0-40.0) Test 04/04/17 05:12 Red Blood Count 4.84 M/uL (4.7-6.1) Mean Corpuscular Volume 94.8 fL (80-100) Mean Corpuscular Hemoglobin 30.8 pg (25-34) Mean Corpuscular Hemoglobin Concent 32.5 g/dl (32-36) RDW Standard Deviation 48.6 fL (36.4-46.3) RDW Coefficient of Variation 13.9 % (11.5-14.5) Mean Platelet Volume 11.4 fL (7.4-10.4) Anion Gap 7.0 mmol/L (3-11) Est Creatinine Clear Calc Drug Dose 107.6 ml/min Estimated GFR () 123.8 Estimated GFR (Non- 106.8 BUN/Creatinine Ratio 9.4 (10-20) Calcium Level 8.3 mg/dl (8.5-10.1) Phosphorus Level 2.9 mg/dl (2.5-4.9) Magnesium Level 1.8 mg/dl (1.8-2.4) Date/Time Source Procedure Growth Status 04/03/17 19:00 Blood Blood Culture Pending Received 04/04/17 03:05 Nasal MRSA DNA Surveillance Screen - Final Specimen Negative for MRSA by DNA Probe Complete 04/04/17 01:25 Urine , Kidney Right Urine Culture Pending Received Last 24 Hours Test 04/03/17 19:00 04/03/17 19:07 04/03/17 19:15 04/03/17 20:05 White Blood Count 15.36 K/uL Red Blood Count 5.03 M/uL Hemoglobin 15.6 g/dL Hematocrit 47.4 % Mean Corpuscular Volume 94.2 fL Mean Corpuscular Hemoglobin 31.0 pg Mean Corpuscular Hemoglobin Concent 32.9 g/dl Platelet Count 283 K/uL Mean Platelet Volume 11.2 fL Neutrophils (%) (Auto) 74.4 % Lymphocytes (%) (Auto) 11.9 % Monocytes (%) (Auto) 12.1 % Eosinophils (%) (Auto) 1.0 % Basophils (%) (Auto) 0.3 % Neutrophils # (Auto) 11.42 K/uL Lymphocytes # (Auto) 1.83 K/uL Monocytes # (Auto) 1.86 K/uL Eosinophils # (Auto) 0.16 K/uL Basophils # (Auto) 0.05 K/uL RDW Standard Deviation 47.3 fL RDW Coefficient of Variation 13.8 % Immature Granulocyte % (Auto) 0.3 % Immature Granulocyte # (Auto) 0.04 K/uL Sodium Level 140 mmol/L Potassium Level mmol/L mmol/L Chloride Level 105 mmol/L Carbon Dioxide Level 28 mmol/L Anion Gap 7.0 mmol/L Blood Urea Nitrogen 9 mg/dl Creatinine 0.78 mg/dl Est Creatinine Clear Calc Drug Dose 102.1 ml/min Estimated GFR () 121.1 Estimated GFR (Non- 104.5 BUN/Creatinine Ratio 12.1 Random Glucose 109 mg/dl Calcium Level 9.3 mg/dl Magnesium Level mg/dl mg/dl Total Bilirubin 0.3 mg/dl Aspartate Amino Transf (AST/SGOT) U/L U/L Alanine Aminotransferase (ALT/SGPT) 20 U/L Alkaline Phosphatase 122 U/L Total Protein 8.7 gm/dl Albumin 3.1 gm/dl Globulin 5.6 gm/dl Albumin/Globulin Ratio 0.6 Bedside Lactic Acid Venous 1.36 mmol/L Urine Color YELLOW Urine Appearance CLOUDY Urine pH 6.5 Urine Specific [place] 1.013 Urine Protein TRACE Urine Glucose (UA) NEG Urine Ketones NEG Urine Occult Blood 1+ Urine Nitrite NEG Urine Bilirubin NEG Urine Urobilinogen NEG Urine Leukocyte Esterase LARGE Urine WBC (Auto) >30 /hpf Urine RBC (Auto) 0-4 /hpf Urine Hyaline Casts (Auto) 1-5 /lpf Urine Epithelial Cells (Auto) 5-10 /lpf Urine Bacteria (Auto) 4+ Test 04/03/17 21:00 04/04/17 05:12 Prothrombin Time 11.5 SECONDS Prothromb Time International Ratio 1.1 Activated Partial Thromboplast Time 31.4 SECONDS Partial Thromboplastin Ratio 1.2 Potassium Level 3.5 mmol/L 3.7 mmol/L Magnesium Level 1.8 mg/dl 1.8 mg/dl Aspartate Amino Transf (AST/SGOT) 18 U/L Phenytoin (Dilantin) Level 13.0 mcg/mL Phenobarbital Level 15.9 mcg/mL White Blood Count 18.89 K/uL Red Blood Count 4.84 M/uL Hemoglobin 14.9 g/dL Hematocrit 45.9 % Mean Corpuscular Volume 94.8 fL Mean Corpuscular Hemoglobin 30.8 pg Mean Corpuscular Hemoglobin Concent 32.5 g/dl RDW Standard Deviation 48.6 fL RDW Coefficient of Variation 13.9 % Platelet Count 260 K/uL Mean Platelet Volume 11.4 fL Sodium Level 143 mmol/L Chloride Level 111 mmol/L Carbon Dioxide Level 25 mmol/L Anion Gap 7.0 mmol/L Blood Urea Nitrogen 7 mg/dl Creatinine 0.74 mg/dl Est Creatinine Clear Calc Drug Dose 107.6 ml/min Estimated GFR () 123.8 Estimated GFR (Non- 106.8 BUN/Creatinine Ratio 9.4 Random Glucose 134 mg/dl Calcium Level 8.3 mg/dl Phosphorus Level 2.9 mg/dl Date/Time Source Procedure Growth Status 04/03/17 19:00 Blood Blood Culture Pending Received 04/03/17 18:40 Blood Blood Culture Pending Received 04/04/17 03:05 Nasal MRSA DNA Surveillance Screen - Final Specimen Negative for MRSA by DNA Probe Complete 04/04/17 01:25 Urine , Kidney Right Urine Culture Pending Received 04/03/17 19:15 Urine,Catheterized Urine Culture - Preliminary Gram Negative Bacilli Resulted Assessment & Plan 51 yo M with developmental delay and multiple chronic comorbidities presented with complicated UTI 2/2 obstructive uropathy with R hydronephrosis. He was immediately taken to OR with a 2-hr difficult procedure involving difficult scope placement with subsequent placement of a ureteral catheter. Purulent drainage resulted (source control) and now pt with gram negative bacteremia in 1 /2 bottles with improved clinical appearance. He is on Zosyn. 1. Sepsis POA 2/2 Complicated UTI 2/2 obstructive uropathy with R hydronephrosis-source control achieved in OR last night with drain still in place. Defer future plans to Urology who is currently weighing out options. He may require PCNL which would have to be done at tertiary care center. Cont Zosyn and ureteral catheter is in place. Urine is blood-tinged with scant clots. Scheduling Tylenol and Tramadol with Dilaudid for breakthrough to manage the pain. He was tolerating PO so will stop the IVF now. 2. Parastomal hernia s/p colostomy placed 18 months ago-new finding per sister. Appears reducible on exam and no evidence of incarceration or bowel obstruction on CT scan. Will engage with Gen Surgery to evaluate further. 3. Obstructive hydrocephalus with developmental delay. 4. Seizure disorder secondary to obstructive hydrocephalus. Continue with current medications. Phenobarbital level is therapeutic, phenytoin level is within therapeutic range too. 5. Anxiety/depression with occasional agitation. Stable, cont home meds. 6. Recent diarrhea with campylobacter found in stool--will place on Levaquin 750mg x 3 days. DVT proph: heparin SQ DNR Dispo-uncertain at this time. [facility] Consultants: [facility] Current Inpatient Medications: Current Inpatient Medications Medications (Trade) Dose Ordered Sig/Jose A Route Start Time Stop Time Status Last Admin Dose Admin Bisacodyl (Dulcolax Tab) 5 mg DAILY PO 04/04/17 09:00 05/04/17 08:59 04/04/17 09:09 5 MG Cholecalciferol (Vitamin D Tab) 1,000 inter.unit TID PO 04/04/17 09:00 05/04/17 08:59 04/04/17 09:10 1,000 INTER.UNIT Citalopram Hydrobromide (celeXA TAB) 40 mg DAILY PO 04/04/17 09:00 05/04/17 08:59 04/04/17 09:03 40 MG Clonazepam (Klonopin Tab) 0.5 mg BID PO 04/04/17 09:00 05/04/17 08:59 04/04/17 09:09 0.5 MG Lorazepam (Ativan Tab) 0.5 mg BID PO 04/04/17 09:00 05/04/17 08:59 04/04/17 09:02 0.5 MG Phenobarbital (Phenobarbital Tab) 16.2 mg [id number] PO 04/04/17 07:00 05/04/17 06:59 04/04/17 09:29 16.2 MG Phenytoin (Dilantin Chew) 150 mg QAM PO 04/04/17 09:00 05/04/17 08:59 04/04/17 09:07 150 MG Phenytoin (Dilantin Chew) 150 mg QPM PO 04/04/17 21:00 05/04/17 20:59 Senna/Docusate Sodium (Senokot S Tab) 2 tab BID PO 04/04/17 09:00 05/04/17 08:59 04/04/17 09:10 2 TAB Acetazolamide (Diamox Tab) 125 mg BID PO 04/04/17 09:00 05/04/17 08:59 04/04/17 09:05 125 MG Miscellaneous Information (Order Awaiting Action) 1 ea QS N/A 04/04/17 00:00 05/04/17 00:00 Potassium Chloride/Sodium Chloride 1,000 ml @ 100 mls/hr Q10H IV 04/04/17 03:00 05/04/17 02:59 04/04/17 03:20 100 MLS/HR Heparin Sodium (Porcine) (Heparin Sq 5000 Unit/0.5ml) 5,000 unit Q8H SQ 04/04/17 06:00 05/04/17 05:59 04/04/17 06:07 5,000 UNIT Acetaminophen (Tylenol Tab) 650 mg Q4H PRN PO 04/03/17 23:15 05/03/17 23:14 Ondansetron HCl (Zofran Inj) 4 mg Q6H PRN IV 04/03/17 23:15 05/03/17 23:14 Piperacillin Sod/ Tazobactam Sod 4.5 gm/Dextrose 120 ml @ 30 mls/hr Q8H IV 04/04/17 08:00 04/14/17 07:59 04/04/17 07:42 30 MLS/HR Piperacillin Sod/ Tazobactam Sod (Consult) 1 ea UD PRN N/A 04/04/17 03:15 05/04/17 03:14 Hydromorphone HCl (Dilaudid Inj) 0.5 mg Q4H PRN IV 04/04/17 06:00 04/18/17 05:59 04/04/17 06:08 0.5 MG
[2017-04-04] MEDS: LEVOFLOXACIN 750 MG TAB PO SCH (19:08)
[2017-04-04] MEDS ORDERED: PHENYTOIN 50 MG CHEW PO SCH (21:00)
[2017-04-04] MEDS: ACETAMINOPHEN 325 MG TAB PO SCH (21:32)
[2017-04-05] MEDS: PIPERACILL/TAZOBAC IV 4.5 GM in DEXTROSE 5% 100ML IV SCH ×3 (00:01→15:33)
[2017-04-05] MEDS: TRAMADOL HCL 50 MG TAB PO SCH ×3 (00:01→15:42)
[2017-04-05 04:15] VITALS: BP 100/72; PULSE 96; TEMP 36.9; O2SAT 92
[2017-04-05] MEDS: HEPARIN SOD 5000 UNIT/0.5 ML CARP SQ SCH ×2 (05:49→13:45)
[2017-04-05] MEDS: ACETAMINOPHEN 325 MG TAB PO SCH ×2 (05:50→13:48)
[2017-04-05 07:00] LABS: BASO % 0.2 %; BASO ABS # 0.04 K/uL (0-0.2); COMPLETE YES; EOS % 1.7 %; HEMATOCRIT 45.2 % (42-52); IG% 0.3 %; LYMPH % 8.2 %; LYMPH ABS # 1.35 K/uL (1.2-3.4); MEAN CELL VOLUME 97.2 fL (80-100); MEAN CORPUSCULAR HEMOGLOBIN 30.1 pg (25-34); MEAN PLATELET VOLUME 11.3 fL (7.4-10.4); NEUT % 74.6 %; PLATELET COUNT 215 K/uL (130-400); RED BLOOD COUNT 4.65 M/uL (4.7-6.1); WHITE BLOOD COUNT 16.48 K/uL (4.8-10.8)
[2017-04-05 07:08] VITALS: BP 120/82; PULSE 95; TEMP 36.9; O2SAT 95
[2017-04-05] MEDS: PHENOBARBITAL 32.4 MG TAB PO SCH ×5 (07:16→18:37)
[2017-04-05 07:37] LABS: BUN/CREATININE RATIO 12.9 (10-20); CALCIUM 8.4 mg/dl (8.5-10.1); CREATININE 0.69 mg/dl (0.60-1.40); POTASSIUM 3.5 mmol/L (3.5-5.1)
--- NOTE | 2017-04-05 08:48 | Progress Note ---
Subjective Date of Service: Apr 05, 2017. Subjective Pt evaluation today including: conversation w/ patient, conversation w/ family Pain: Controlled. No issues with catheter at this time PO Intake: Good intake. Tolerating solid Voiding: longo catheter in place Patient admitted with Sepsis secondary to obstructing stone with bacteremia as well as GI/Foodborne infection with impaction of stool and large parastomal hernia. Patient tolerating catheter and ureteral catheter well. Draining well into bag. Mild hematuria with small clots at this time. Long conversation with patient's sister over phone about clinical plans. Problem List Medical Problems: (1) Fever Status: Acute (2) Hydronephrosis of right kidney Status: Acute (3) UTI (urinary tract infection) Status: Acute Review of Systems Limited secondary to patient's baseline status All Other Systems: Reviewed and Negative Objective Vital Signs Date Time Temp Pulse Resp B/P (MAP) Pulse Ox O2 Delivery O2 Flow Rate FiO2 04/05/17 07:08 36.9 95 16 120/82 (95) 95 Room Air 04/05/17 04:15 36.9 96 18 100/72 (81) 92 Nasal Cannula 2.0 04/05/17 00:00 Nasal Cannula 2.0 04/04/17 23:10 36.6 98 16 111/73 (86) 93 Nasal Cannula 2.0 04/04/17 19:28 37.5 107 18 121/76 (91) 94 Nasal Cannula 2.0 04/04/17 15:32 37.3 102 20 111/77 (88) 92 Nasal Cannula 1.0 04/04/17 15:30 Nasal Cannula 2.0 04/04/17 12:04 37.7 98 18 126/84 (98) 94 Nasal Cannula 2.0 Physical Exam General Appearance: WD/WN, no apparent distress Eyes: normal inspection ENT: normal ENT inspection Respiratory/Chest: no respiratory distress, no accessory muscle use Cardiovascular: regular rate, rhythm Abdomen: + distended, + hernia Extremities: normal range of motion Neurologic/Psychiatric: normal mood/affect Skin: normal color Comments: Micropenis with longo and ureteral catheter (R) draining mild hematuria and cloudy urine. Laboratory Results Last 24 Hours Test 04/05/17 06:33 White Blood Count 16.48 K/uL Red Blood Count 4.65 M/uL Hemoglobin 14.0 g/dL Hematocrit 45.2 % Mean Corpuscular Volume 97.2 fL Mean Corpuscular Hemoglobin 30.1 pg Mean Corpuscular Hemoglobin Concent 31.0 g/dl Platelet Count 215 K/uL Mean Platelet Volume 11.3 fL Neutrophils (%) (Auto) 74.6 % Lymphocytes (%) (Auto) 8.2 % Monocytes (%) (Auto) 15.0 % Eosinophils (%) (Auto) 1.7 % Basophils (%) (Auto) 0.2 % Neutrophils # (Auto) 12.28 K/uL Lymphocytes # (Auto) 1.35 K/uL Monocytes # (Auto) 2.48 K/uL Eosinophils # (Auto) 0.28 K/uL Basophils # (Auto) 0.04 K/uL RDW Standard Deviation 50.6 fL RDW Coefficient of Variation 14.2 % Immature Granulocyte % (Auto) 0.3 % Immature Granulocyte # (Auto) 0.05 K/uL Sodium Level 147 mmol/L Potassium Level 3.5 mmol/L Chloride Level 115 mmol/L Carbon Dioxide Level 28 mmol/L Anion Gap 4.0 mmol/L Blood Urea Nitrogen 9 mg/dl Creatinine 0.69 mg/dl Est Creatinine Clear Calc Drug Dose 115.4 ml/min Estimated GFR () 127.4 Estimated GFR (Non- 109.9 BUN/Creatinine Ratio 12.9 Random Glucose 104 mg/dl Calcium Level 8.4 mg/dl Assessment and Plan 1. Sepsis 2. Obstructing Stone R POD2 s/p ureteral catheter and URS with dilation of stricture 3. Foodborne GI infection with stool impaction and large parastomal hernia 4. Developmental Delay (Down's) Patient doing well on zosyn and supportive care with drainage. Long conversation with Patient's sister (BELEM) via telephone about clinical course and planning of stone treatment. Patient with complicated anatomy due to high bladder neck, large dilated bladder , torturous ureter, and impaction of stone. Currently draining via ureteral catheter and longo. Due to anatomy, may need percutaneous access in order to treat obstructing stone. Patient's habitus and anatomy as well as large parastomal hernia with colonic distension would likely make cause difficult. Discussed possible need to have patient assessed by an endo-urologist for management of complicated stone. Will discuss with medical team. Continue supportive care at this time. Will follow.
[2017-04-05] MEDS: CITALOPRAM 40 MG TAB PO SCH (09:17)
[2017-04-05] MEDS: CLONAZEPAM 0.5 MG TAB PO SCH (09:17)
[2017-04-05] MEDS: DOCUSATE SODIUM/SENNA 50/8.6MG TAB PO SCH (09:17)
[2017-04-05] MEDS: LORAZEPAM 0.5 MG TAB PO SCH (09:17)
[2017-04-05] MEDS: CHOLECALCIFEROL 1000 INTER.UNIT TAB PO SCH ×2 (09:19→13:48)
[2017-04-05] MEDS: AcetaZOLAMIDE 250 MG TAB PO SCH (09:19)
[2017-04-05] MEDS: PHENYTOIN 50 MG CHEW PO SCH (09:20)
[2017-04-05] MEDS: BISACODYL 5 MG TABEC PO SCH (09:26)
[2017-04-05] MEDS: LEVOFLOXACIN 750 MG TAB PO SCH (10:52)
--- NOTE | 2017-04-05 11:53 | Surgery Consultation ---
Consultation Date of Consultation: Apr 05, 2017. Attending Physician: Zunilda Bobby DO Reason for Consultation: Parastomal hernia History of Present Illness Saulo Comer is a 51 year old man with history of developmental delays, seizure disorder, hydrocephalus s/p CORPORATE TUTOR shunt placement, hx of loop colostomy who was admitted on 04/03/17 with fever and UTI, found to have right ureteral obstruction with hydronephrosis. He is now s/p decompression by urology. Patient is unable to give history, but answers simple questions. Currently denies abdominal pain. Abdomen is soft, mildly distended, non tender to palpation. Stoma is pink, air and stool noted in ostomy bag; upon digital examination, it is widely patent. Vitals have been stable and normal, patient appears comfortable on room air. Past Medical/Surgical History Medical Problems: (1) Bowel obstruction (2) Cognitive disorder (3) Hydrocephalus (4) Obstructive hydrocephalus (5) Obstructive hydrocephalus (6) Seizure disorder (7) Sepsis (8) UTI (urinary tract infection) Surgical Problems: (1) Colostomy in place (2) Status post ventriculoperitoneal shunt Family History No significant family history Social History Smoking Status: Never Smoker Drug Use: none Marital Status: single Housing Status: custodial Occupation Status: disabled Allergies Coded Allergies: No Known Allergies (Unverified , 05/10/15) Home Medications Scheduled Acetazolamide (Acetazolamide), 125 MG PO BID Bisacodyl (Bisacodyl), 5 MG PO DAILY Cholecalciferol (Vitamin D3), 1,000 UNITS PO TID Citalopram (Citalopram Hydrobromide), 40 MG PO DAILY Clonazepam (Clonazepam), 0.5 MG PO BID Ethosuximide (Zarontin), 250 MG PO BID Lorazepam (Lorazepam), 0.5 MG PO BID Phenobarbital (Phenobarbital), 16.2 MG PO 5XDAY Phenytoin (Phenytoin Infatabs), 150 MG PO QPM Phenytoin (Dilantin Chewable), 150 MG PO QAM Sennosides-Docusate Sodium (Senna-S), 2 TAB PO BID Current Inpatient Medications Current Inpatient Medications Medications (Trade) Dose Ordered Sig/Jose A Route Start Time Stop Time Status Last Admin Dose Admin Bisacodyl (Dulcolax Tab) 5 mg DAILY PO 04/04/17 09:00 05/04/17 08:59 04/05/17 09:26 5 MG Cholecalciferol (Vitamin D Tab) 1,000 inter.unit TID PO 04/04/17 09:00 05/04/17 08:59 04/05/17 09:19 1,000 INTER.UNIT Citalopram Hydrobromide (celeXA TAB) 40 mg DAILY PO 04/04/17 09:00 05/04/17 08:59 04/05/17 09:17 40 MG Clonazepam (Klonopin Tab) 0.5 mg BID PO 04/04/17 09:00 05/04/17 08:59 04/05/17 09:17 0.5 MG Lorazepam (Ativan Tab) 0.5 mg BID PO 04/04/17 09:00 05/04/17 08:59 04/05/17 09:17 0.5 MG Phenobarbital (Phenobarbital Tab) 16.2 mg 5XDQ3H PO 04/04/17 07:00 05/04/17 06:59 04/05/17 09:33 16.2 MG Phenytoin (Dilantin Chew) 150 mg QAM PO 04/04/17 09:00 05/04/17 08:59 04/05/17 09:20 150 MG Phenytoin (Dilantin Chew) 150 mg QPM PO 04/04/17 21:00 05/04/17 20:59 04/04/17 20:25 150 MG Senna/Docusate Sodium (Senokot S Tab) 2 tab BID PO 04/04/17 09:00 05/04/17 08:59 04/05/17 09:17 2 TAB Acetazolamide (Diamox Tab) 125 mg BID PO 04/04/17 09:00 05/04/17 08:59 04/05/17 09:19 125 MG Miscellaneous Information (Order Awaiting Action) 1 ea QS N/A 04/04/17 00:00 05/04/17 00:00 Heparin Sodium (Porcine) (Heparin Sq 5000 Unit/0.5ml) 5,000 unit Q8H SQ 04/04/17 06:00 05/04/17 05:59 04/05/17 05:49 5,000 UNIT Acetaminophen (Tylenol Tab) 650 mg Q4H PRN PO 04/03/17 23:15 05/03/17 23:14 Future Hold 04/04/17 12:42 650 MG Ondansetron HCl (Zofran Inj) 4 mg Q6H PRN IV 04/03/17 23:15 05/03/17 23:14 Piperacillin Sod/ Tazobactam Sod 4.5 gm/Dextrose 120 ml @ 30 mls/hr Q8H IV 04/04/17 08:00 04/14/17 07:59 04/05/17 07:40 30 MLS/HR Piperacillin Sod/ Tazobactam Sod (Consult) 1 ea UD PRN N/A 04/04/17 03:15 05/04/17 03:14 Hydromorphone HCl (Dilaudid Inj) 0.5 mg Q4H PRN IV 04/04/17 06:00 04/18/17 05:59 04/04/17 20:24 0.5 MG Acetaminophen (Tylenol Tab) 650 mg Q8 PO 04/04/17 22:00 05/04/17 21:59 04/05/17 05:50 650 MG Tramadol HCl (Ultram Tab) 50 mg Q8@0000,0800,1600 PO 04/04/17 16:00 05/04/17 15:59 04/05/17 07:41 50 MG Levofloxacin (Levaquin Tab) 750 mg DAILY@1100 PO 04/04/17 18:00 04/14/17 17:59 04/05/17 10:52 750 MG Review of Systems Unable to give review of systems due to mental status Physical Exam Date Time Temp Pulse Resp B/P (MAP) Pulse Ox O2 Delivery O2 Flow Rate FiO2 04/05/17 07:40 Nasal Cannula 2.0 04/05/17 07:08 36.9 95 16 120/82 (95) 95 Room Air 04/05/17 04:15 36.9 96 18 100/72 (81) 92 Nasal Cannula 2.0 04/05/17 00:00 Nasal Cannula 2.0 04/04/17 23:10 36.6 98 16 111/73 (86) 93 Nasal Cannula 2.0 04/04/17 19:28 37.5 107 18 121/76 (91) 94 Nasal Cannula 2.0 04/04/17 15:32 37.3 102 20 111/77 (88) 92 Nasal Cannula 1.0 04/04/17 15:30 Nasal Cannula 2.0 04/04/17 12:04 37.7 98 18 126/84 (98) 94 Nasal Cannula 2.0 General Appearance: WD/WN, no apparent distress Head: normocephalic, atraumatic Eyes: EOMI, sclerae normal Neck: supple Respiratory/Chest: chest non-tender, lungs clear Cardiovascular: regular rate, rhythm Abdomen/GI: normal bowel sounds, non tender, soft, + hernia (palpable around stoma, unable to palpate fascial edges, soft, non tender to palpation, no overlying skin changes), + pertinent finding (ostomy pink, air and stool noted in bag, digitized - widely patent both directions) Skin: normal color, warm/dry Laboratory Results Last 24 Hours Test 04/05/17 06:33 White Blood Count 16.48 K/uL Red Blood Count 4.65 M/uL Hemoglobin 14.0 g/dL Hematocrit 45.2 % Mean Corpuscular Volume 97.2 fL Mean Corpuscular Hemoglobin 30.1 pg Mean Corpuscular Hemoglobin Concent 31.0 g/dl Platelet Count 215 K/uL Mean Platelet Volume 11.3 fL Neutrophils (%) (Auto) 74.6 % Lymphocytes (%) (Auto) 8.2 % Monocytes (%) (Auto) 15.0 % Eosinophils (%) (Auto) 1.7 % Basophils (%) (Auto) 0.2 % Neutrophils # (Auto) 12.28 K/uL Lymphocytes # (Auto) 1.35 K/uL Monocytes # (Auto) 2.48 K/uL Eosinophils # (Auto) 0.28 K/uL Basophils # (Auto) 0.04 K/uL RDW Standard Deviation 50.6 fL RDW Coefficient of Variation 14.2 % Immature Granulocyte % (Auto) 0.3 % Immature Granulocyte # (Auto) 0.05 K/uL Sodium Level 147 mmol/L Potassium Level 3.5 mmol/L Chloride Level 115 mmol/L Carbon Dioxide Level 28 mmol/L Anion Gap 4.0 mmol/L Blood Urea Nitrogen 9 mg/dl Creatinine 0.69 mg/dl Est Creatinine Clear Calc Drug Dose 115.4 ml/min Estimated GFR () 127.4 Estimated GFR (Non- 109.9 BUN/Creatinine Ratio 12.9 Random Glucose 104 mg/dl Calcium Level 8.4 mg/dl 04/03/17 CT Abd / Pelvis without contrast: IMPRESSION: 1. Moderate right hydronephrosis due to a 7 mm proximal right ureteral calculus. 2. Bilateral nephrolithiasis. 3. Status post diverting loop colostomy. Associated parastomal hernia/diastasis recti which contains multiple bowel loops without resultant bowel obstruction. Massive amount of stool within the rectum consistent with fecal impaction. Assessment & Plan Saulo Comer is a 51 year old man with history of developmental delays, seizure disorder, hydrocephalus s/p CORPORATE T[employer] shunt placement, hx of loop colostomy who was admitted on 04/03/17 with fever and UTI, found to have right ureteral obstruction with hydronephrosis, now s/p decompression by urology. Also has a large parastomal hernia containing loops of bowel. He has been afebrile, vitals stable and normal, breathing comfortably on room air. Abdomen is benign on exam. Colostomy is functioning - air and stool presently in bag. Widely patent on digital examination. CT scan shows large parastomal defect containing loops of bowel, no signs of obstruction. Does have a large amount of stool in rectum. -No acute surgical intervention indicated at this time for repair of parastomal hernia, as there are no signs / symptoms of obstruction -May try suppository or gentle enemas per rectum to help clear out stool from below -Continue hydration, replete electrolytes as needed -Management of urologic issues per primary team / urology -May consider parastomal hernia evaluation for repair in the future, but currently is not causing problems -OK to trial clear liquids from surgical perspective -Will continue to follow
[2017-04-05] MEDS: HYDROmorphone INJ 0.5 MG/0.5 ML SYR IV PRN (12:49)
--- NOTE | 2017-04-05 13:21 | Discharge Instructions ---
Discharge Instructions Date of Service Apr 05, 2017. Admission Reason for Admission: Hydronephrosis Of Rt Kidney,Uti Discharge Discharge Diagnosis / Problem: R ureteral stone impacted/complicated E coli UTI /GNB bacteremia Discharge Goals Goal(s): Therapeutic intervention Activity Recommendations Activity Limitations: per Instructions/Follow-up section . Instructions / Follow-Up Instructions / Follow-Up TRANSFER: [facility], Accepting physician is Dr. Kelly-HOSPITALIST DIAGNOSIS: Sepsis POA 2/2 complicated E. coli UTI 2/2 obstructive uropathy with R hydrocephalus Gram negative bacteremia Parastomal hernia s/p colostomy placed 2015 Chronic obstructive hydrocephalus with developmental delay Seizure disorder 2/2 obstructive hydrocephalis Anxiety/Depression Campylobacter infection CONDITION: Fair VITALS: hemodynamic monitoring en route ACTIVITY: bed rest DIET: (pureed, nectar thick) REG DIET INS AND OUTS: strict IV FLUIDS: KVO DRAINS: Thapa to gravity MEDS: see above list and OXYGEN vis NC at 2L ALLERGIES: NKDA MONITORS: hemodynamic monitoring en route Thank you for accepting this patient, Dr. Kelly. The Urologist who performed the initial procedure is Dr. Jerome Bello It was a pleasure taking care of you! Call if you have any questions or problems. You can reach a [facility] Hospitalist on duty at [facility] 24 hours a day by calling [phone]. Take care of yourself. Zunilda Bobby DO [facility] Hospitalist Current Hospital Diet Patient's current hospital diet: Regular Diet Discharge Diet Recommended Diet: Regular Diet Diet Texture: Pureed (blended smooth) Liquid Consistency: [place] Thick Procedures Procedures Performed: Cystoscopy, Retrograde, Right Ureteroscopy, Balloon Dilation, Insertion of Right Ureteral Catheter Pending Studies Studies pending at discharge: yes List of pending studies: Final urine and blood cultures pending at discharge Medical Emergencies . Who to Call and When: Medical Emergencies: If at any time you feel your situation is an emergency, please call 911 immediately. . Non-Emergent Contact Non-Emergency issues call your: Primary Care Provider . . "Provider Documentation" section prepared by Zunilda Bobby. . VTE Core Measure Inpt VTE Proph given/why not?: Unfractionated heparin SQ
[2017-04-05 13:35] VITALS: BP 120/82; PULSE 95; TEMP 36.9; O2SAT 95
--- NOTE | 2017-04-05 13:35 | Discharge Summary ---
Discharge Summary Date of Service Apr 05, 2017. Discharge Summary Admission Date: Apr 03, 2017 at 23:08 Discharge Date: Apr 05, 2017 Discharge Disposition: Acute care facility Principal Diagnosis: Sepsis POA 2/2 complicated E. coli UTI 2/2 obstructive uropathy with R hydrocephalus Gram negative bacteremia Parastomal hernia s/p colostomy placed 2016 Chronic obstructive hydrocephalus with developmental delay Seizure disorder 2/2 obstructive hydrocephalis Anxiety/Depression Campylobacter infection Procedures: Cystoscopy, Retrograde, Right Ureteroscopy, Balloon Dilation, Insertion of Right Ureteral Catheter Vaccinations: None. Consultations: ID Urology Pending Studies/Follow-Up: see instructions below. Medication Reconciliation Continued Medications: Acetazolamide (Acetazolamide) 125 Mg Tab 125 MG PO BID Bisacodyl (Bisacodyl) 5 Mg Tab 5 MG PO DAILY for Constipation, TAB Cholecalciferol (Vitamin D3) 1,000 Unit Tab 1000 UNITS PO TID, TAB Citalopram (Citalopram Hydrobromide) 40 Mg Tab 40 MG PO DAILY, TAB Clonazepam (Clonazepam) 0.5 Mg Tab 0.5 MG PO BID Ethosuximide (Zarontin) 250 Mg/5 Ml [place] 250 MG PO BID Lorazepam (Lorazepam) 0.5 Mg Tab 0.5 MG PO BID for Agitation Phenobarbital (Phenobarbital) 16.2 Mg Tab 16.2 MG PO 5XDAY Phenytoin (Phenytoin Infatabs) 50 Mg Chw 150 MG PO QPM THREE TABLET DOSE Phenytoin (Dilantin Chewable) 50 Mg Chw 150 MG PO QAM, CHW THREE TABLET DOSE Sennosides-Docusate Sodium (Senna-S) 1 Tab Tab 2 TAB PO BID for Constipation Admission Information HPI (per Admitting provider): HISTORY OF PRESENT COMPLAINT: He is a 51-year-old male with significant past medical history including 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 Apparently lives in [facility]. [facility] staff called his sister yesterday, letting her know that the patient is not doing well, did have some abdominal pain, they did a KUB that was unremarkable, and then nursing was going to do few blood work on Wednesday. Sister went to see him today and noted him to be ill with more grimacing of the face and discomfort. From that point, he was taken to the Emergency Room. In the ER, he was noted to have temperature of 38.2, tachycardia 103, white count 15.6. UA is suggestive of infection and CT of the abdomen showed 7 mm proximal right ureteral calculus with moderate right hydronephrosis. From that point, urine culture was taken and he was started on Zosyn and urologic consultation was taken and the patient was admitted to medical floor. Physical Exam (per Admitting): PHYSICAL EXAMINATION: GENERAL: On examination in the Emergency Room, he was having minimal distress at rest, especially complaining of some pain in the abdomen, but otherwise unremarkable. VITAL SIGNS: Temperature 38.2, pulse 103, blood pressure 113/90, saturation 93% on 4 liters nasal cannula. HEENT: Unremarkable. NECK: Supple. No JVD, no bruit. CHEST: Decreased breath sounds but otherwise clear. HEART: S1, S2 regular. ABDOMEN: Distended, slightly tender in the lower quadrant. Right renal angle minimally tender. Colostomy site is intact. Bowel sounds present. EXTREMITIES: Trace edema. Has deformity more on the right side than the left side. CENTRAL NERVOUS SYSTEM: Alert, awake. Has severe mental retardation. Has deformity involving the right upper and lower extremities with minimal movement. Left upper and lower extremities move, again minimally. Hospital Course 51 yo M with developmental delay and multiple chronic comorbidities presented with complicated UTI 2/2 obstructive uropathy with R hydronephrosis. He was immediately taken to OR with a 2-hr difficult procedure involving difficult scope placement with subsequent placement of a ureteral catheter. Purulent drainage resulted but stone was not able to be removed and no stent placed. Now pt with gram negative bacteremia in 1/2 bottles with improved clinical appearance. He is on Zosyn with LEvaquin added for camplyobacter infection found in stool culture recently as outpatient. Currently not septic with initial urine culture growing E coli that is sensitive to Zosyn. Pt will need percutaneous nephrostomy tube placed but there is no capability for this at [facility]. Setup for transfer for this at [facility]. Family aware and gives consent for transfer (sister, Olive Guzman) verbally by phone. Pt does have a parastomal hernia that is large and full of stool s/p colostomy 18 months ago. General Surgery was asked to evaluate and recommended no need for urgent surgical treatment but could be considered for elective treatment in the future. He was placed on scheduled Tylenol and Tramadol because of limited ability to communicate his pain level. Dilaudid was used IV for breakthrough pain. He was transferred by ambulance in fair condition (afebrile and clinically stable) to [facility] for further intervention. Total time spent on discharge = 60 minutes This includes examination of the patient, discharge planning, medication reconciliation, and communication with other providers. Discharge Instructions [address] [address] Discharge Medical Patient Name: Saulo Comer Unit Number: [id number] Date of : 1965 Patient Status: Admitted Inpatient Attending Doctor: Zunilda Bobby DO DI: Medical v4 Discharge Instructions Date of Service Apr 05, 2017. Admission Reason for Admission: Hydronephrosis Of Rt Kidney,Uti Discharge Discharge Diagnosis / Problem: R ureteral stone impacted/complicated E coli UTI /GNB bacteremia Discharge Goals Goal(s): Therapeutic intervention Activity Recommendations Activity Limitations: per Instructions/Follow-up section . Instructions / Follow-Up Instructions / Follow-Up TRANSFER: [facility], Accepting physician is Dr. Kelly-HOSPITALIST DIAGNOSIS: Sepsis POA 2/2 complicated E. coli UTI 2/2 obstructive uropathy with R hydrocephalus Gram negative bacteremia Parastomal hernia s/p colostomy placed 2015 Chronic obstructive hydrocephalus with developmental delay Seizure disorder 2/2 obstructive hydrocephalis Anxiety/Depression Campylobacter infection CONDITION: Fair VITALS: hemodynamic monitoring en route ACTIVITY: bed rest DIET: (pureed, nectar thick) REG DIET INS AND OUTS: strict IV FLUIDS: KVO DRAINS: Thapa to gravity MEDS: see above list and OXYGEN vis NC at 2L ALLERGIES: NKDA MONITORS: hemodynamic monitoring en route Thank you for accepting this patient, Dr. Kelly. The Urologist who performed the initial procedure is Dr. Jerome Bello It was a pleasure taking care of you! Call if you have any questions or problems. You can reach a [facility] hospitalist on duty at [facility] 24 hours a day by calling [phone]. Take care of yourself. Zunilda Bobby DO [facility] Current [facility] Diet Patient's current hospital diet: Regular Diet Discharge Diet Recommended Diet: Regular Diet Diet Texture: Pureed (blended smooth) Liquid Consistency: [place] Thick Procedures Procedures Performed: Cystoscopy, Retrograde, Right Ureteroscopy, Balloon Dilation, Insertion of Right Ureteral Catheter Pending Studies Studies pending at discharge: yes List of pending studies: Final urine and blood cultures pending at discharge Medical Emergencies . Who to Call and When: Medical Emergencies: If at any time you feel your situation is an emergency, please call 911 immediately. . Non-Emergent Contact Non-Emergency issues call your: Primary Care Provider . . "Provider Documentation" section prepared by Zunilda Bobby. . VTE Core Measure Inpt VTE Proph given/why not?: Unfractionated heparin SQ Additional Copies To Lisa Blackmon M.D.
--- NOTE | 2017-04-05 14:09 | Medical Consult ---
Consultation Date of Consultation: Apr 05, 2017. Attending Physician: Zunilda Bobby DO Reason for Consultation: Gram-negative bacteremia, infected kidney stone. Campylobacter treatment History of Present Illness 51-year-old male with history of severe developmental deficiency from obstructive hydrocephalus, as well as seizure disorder, status post colostomy placement, who was admitted to the hospital with several days of apparent worsening mental status, discomfort, with fever and hypotension. Was brought to the hospital where he was found to have evidence of sepsis with obstructive uropathy from right ureteral stone. He has undergone ureteral stent placement with finding of purulent debris proximal to stone, with urine culture growing E coli, and now blood cultures growing gram-negative bacilli. has been started empirically on combination of Zosyn and levofloxacin. Urology feels need for probable percutaneous nephrostomy, and arrangements being made for transfer to tertiary care facility. Past Medical/Surgical History Medical Problems: (1) Fever Status: Acute (2) Hydronephrosis of right kidney Status: Acute (3) UTI (urinary tract infection) Status: Acute Medical Problems: (1) Bowel obstruction (2) Cognitive disorder (3) Hydrocephalus (4) Obstructive hydrocephalus (5) Obstructive hydrocephalus (6) Seizure disorder (7) Sepsis (8) UTI (urinary tract infection) Surgical Problems: (1) Colostomy in place (2) Status post ventriculoperitoneal shunt Family History No significant family history Social History Smoking Status: Never Smoker Drug Use: none Marital Status: single Housing Status: halfway Occupation Status: disabled Allergies Coded Allergies: No Known Allergies (Unverified , 05/10/15) Current Inpatient Medications Current Inpatient Medications Medications (Trade) Dose Ordered Sig/Jose A Route Start Time Stop Time Status Last Admin Dose Admin Bisacodyl (Dulcolax Tab) 5 mg DAILY PO 04/04/17 09:00 05/04/17 08:59 04/05/17 09:26 5 MG Cholecalciferol (Vitamin D Tab) 1,000 inter.unit TID PO 04/04/17 09:00 05/04/17 08:59 04/05/17 13:48 1,000 INTER.UNIT Citalopram Hydrobromide (celeXA TAB) 40 mg DAILY PO 04/04/17 09:00 05/04/17 08:59 04/05/17 09:17 40 MG Clonazepam (Klonopin Tab) 0.5 mg BID PO 04/04/17 09:00 05/04/17 08:59 04/05/17 09:17 0.5 MG Lorazepam (Ativan Tab) 0.5 mg BID PO 04/04/17 09:00 05/04/17 08:59 04/05/17 09:17 0.5 MG Phenobarbital (Phenobarbital Tab) 16.2 mg 5XDQ3H PO 04/04/17 07:00 05/04/17 06:59 04/05/17 12:56 16.2 MG Phenytoin (Dilantin Chew) 150 mg QAM PO 04/04/17 09:00 05/04/17 08:59 04/05/17 09:20 150 MG Phenytoin (Dilantin Chew) 150 mg QPM PO 04/04/17 21:00 05/04/17 20:59 04/04/17 20:25 150 MG Senna/Docusate Sodium (Senokot S Tab) 2 tab BID PO 04/04/17 09:00 05/04/17 08:59 04/05/17 09:17 2 TAB Acetazolamide (Diamox Tab) 125 mg BID PO 04/04/17 09:00 05/04/17 08:59 04/05/17 09:19 125 MG Miscellaneous Information (Order Awaiting Action) 1 ea QS N/A 04/04/17 00:00 05/04/17 00:00 Heparin Sodium (Porcine) (Heparin Sq 5000 Unit/0.5ml) 5,000 unit Q8H SQ 04/04/17 06:00 05/04/17 05:59 04/05/17 13:45 5,000 UNIT Acetaminophen (Tylenol Tab) 650 mg Q4H PRN PO 04/03/17 23:15 05/03/17 23:14 Future Hold 04/04/17 12:42 650 MG Ondansetron HCl (Zofran Inj) 4 mg Q6H PRN IV 04/03/17 23:15 05/03/17 23:14 Piperacillin Sod/ Tazobactam Sod 4.5 gm/Dextrose 120 ml @ 30 mls/hr Q8H IV 04/04/17 08:00 04/14/17 07:59 04/05/17 07:40 30 MLS/HR Piperacillin Sod/ Tazobactam Sod (Consult) 1 ea UD PRN N/A 04/04/17 03:15 05/04/17 03:14 Hydromorphone HCl (Dilaudid Inj) 0.5 mg Q4H PRN IV 04/04/17 06:00 04/18/17 05:59 04/05/17 12:49 0.5 MG Acetaminophen (Tylenol Tab) 650 mg Q8 PO 04/04/17 22:00 05/04/17 21:59 04/05/17 13:48 650 MG Tramadol HCl (Ultram Tab) 50 mg Q8@0000,0800,1600 PO 04/04/17 16:00 05/04/17 15:59 04/05/17 07:41 50 MG Levofloxacin (Levaquin Tab) 750 mg DAILY@1100 PO 04/04/17 18:00 04/14/17 17:59 04/05/17 10:52 750 MG Review of Systems not obtainable because of patient's mental status Physical Exam Date Time Temp Pulse Resp B/P (MAP) Pulse Ox O2 Delivery O2 Flow Rate FiO2 04/05/17 13:35 36.9 95 16 95 Nasal Cannula 04/05/17 07:40 Nasal Cannula 2.0 04/05/17 07:08 36.9 95 16 120/82 (95) 95 Room Air 04/05/17 04:15 36.9 96 18 100/72 (81) 92 Nasal Cannula 2.0 04/05/17 00:00 Nasal Cannula 2.0 04/04/17 23:10 36.6 98 16 111/73 (86) 93 Nasal Cannula 2.0 04/04/17 19:28 37.5 107 18 121/76 (91) 94 Nasal Cannula 2.0 04/04/17 15:32 37.3 102 20 111/77 (88) 92 Nasal Cannula 1.0 04/04/17 15:30 Nasal Cannula 2.0 General Appearance: WD/WN, no apparent distress Head: normocephalic, atraumatic Eyes: normal inspection, EOMI, sclerae normal ENT: normal ENT inspection, pharynx normal Neck: supple, no adenopathy, thyroid normal, trachea midline Respiratory/Chest: chest non-tender, lungs clear, normal breath sounds, no respiratory distress Cardiovascular: regular rate, rhythm, no gallop, no murmur Abdomen/GI: normal bowel sounds, soft, no organomegaly, + tenderness, + distended, + pertinent finding ( ostomy site appears pink) Genitourinary - Male: + pertinent finding ( cloudy urine in [place] bag he) Back: normal inspection, no CVA tenderness Extremities/Musculoskelatal: no calf tenderness, normal capillary refill Neurologic/Psych: alert, + pertinent finding ( only able to answer simple questions) Skin: normal color, warm/dry, no rash Lymphatic: no adenopathy Laboratory Results RUN DATE: 04/05/17 [facility] LAB PAGE 1 RUN TIME: 906 Specimen Inquiry PATIENT: ALVARO LEI LOC: [facility] U # : [id number] AGE/SX: 51/M ROOM: N3 REG : 04/03/[address]: Zunilda Bobby DO : 1965 BED: 2 DIS : STATUS: ADM IN TLOC: SPEC #: :[id number] KATHY: 04/03/17 STATUS: RES REQ #: [id number] RECD: 04/03/[address] [facility] DR: Nicolas Khan M.D. SOURCE: BLOOD ENTR: 04/03/17 [facility] DR: Lisa Blackmon M.D. [facility]: ORDERED: BLOOD CULTURE Procedure Result Verified Site BLD CULT Preliminary 04/05/17-906 Organism 1 GRAM NEGATIVE BACILLI SENS SENSITIVITY TO FOLLOW Phoned Positive Blood Culture Gram Stain Report to REZA PATEL on 04/04/17 At 1422 By COLLEEN. Results were verbalized back to COLLEEN. Last 24 Hours Test 04/05/17 06:33 White Blood Count 16.48 K/uL Red Blood Count 4.65 M/uL Hemoglobin 14.0 g/dL Hematocrit 45.2 % Mean Corpuscular Volume 97.2 fL Mean Corpuscular Hemoglobin 30.1 pg Mean Corpuscular Hemoglobin Concent 31.0 g/dl Platelet Count 215 K/uL Mean Platelet Volume 11.3 fL Neutrophils (%) (Auto) 74.6 % Lymphocytes (%) (Auto) 8.2 % Monocytes (%) (Auto) 15.0 % Eosinophils (%) (Auto) 1.7 % Basophils (%) (Auto) 0.2 % Neutrophils # (Auto) 12.28 K/uL Lymphocytes # (Auto) 1.35 K/uL Monocytes # (Auto) 2.48 K/uL Eosinophils # (Auto) 0.28 K/uL Basophils # (Auto) 0.04 K/uL RDW Standard Deviation 50.6 fL RDW Coefficient of Variation 14.2 % Immature Granulocyte % (Auto) 0.3 % Immature Granulocyte # (Auto) 0.05 K/uL Sodium Level 147 mmol/L Potassium Level 3.5 mmol/L Chloride Level 115 mmol/L Carbon Dioxide Level 28 mmol/L Anion Gap 4.0 mmol/L Blood Urea Nitrogen 9 mg/dl Creatinine 0.69 mg/dl Est Creatinine Clear Calc Drug Dose 115.4 ml/min Estimated GFR () 127.4 Estimated GFR (Non- 109.9 BUN/Creatinine Ratio 12.9 Random Glucose 104 mg/dl Calcium Level 8.4 mg/dl Patient Name: ALVARO LEI Unit Number: [id number] Dictated: 04/03/172055 Transcribed: 04/03/172055 Printed Date/Time: [~ rep prt dt]/[~ rep prt tm] [~ rep ct labl] - [~ rep ct ivnm] [facility] Radiology Department [place], [place] [id number] Dictated: 04/03/172055 Transcribed: 04/03/172055 Printed Date/Time: [~ rep prt dt]/[~ rep prt tm] [~ rep ct labl] - [~ rep ct ivnm] CT OF THE ABDOMEN AND PELVIS WITHOUT CONTRAST CLINICAL HISTORY: Abdominal pain. Possible bowel obstruction. Fever. COMPARISON STUDY: CT of the abdomen and pelvis June 02, 2015. TECHNIQUE: Axial images of the abdomen and pelvis were obtained without IV contrast. Images were reviewed in the axial, sagittal, and coronal planes. A dose lowering technique was utilized adhering to the principles of ALARA. FINDINGS: Visualized portions of the lower chest demonstrate a linear radiodensity within the left lower lobe which is unchanged. This may be within a pulmonary artery. Note is made of moderate right hydronephrosis due to a 7 mm proximal right ureteral calculus. Numerous additional bilateral renal calculi are present. There are no left ureteral calculi. The bladder is distorted and displaced anteriorly. There is mild right perinephric and periureteral ureteral infiltration. Evaluation of the remainder of the abdomen and pelvis is suboptimal as unenhanced exam. Several water attenuation hepatic lesions likely reflect cysts. Unenhanced images of the spleen, adrenal glands and pancreas are unremarkable. There are findings suggestive of a diverting colostomy. A parastomal hernia is noted which contains multiple loops of bowel. There is no resultant bowel obstruction. There is a large amount of stool within the rectum. No pneumatosis, free air or portal venous gas is present. Ventriculostomy catheter is noted and terminates within the right mid abdomen. Visualized portions of the catheter appear intact. The lumbar spine compression fractures are noted. IMPRESSION: 1. Moderate right hydronephrosis due to a 7 mm proximal right ureteral calculus. 2. Bilateral nephrolithiasis. 3. Status post diverting loop colostomy. Associated parastomal hernia/diastasis recti which contains multiple bowel loops without resultant bowel obstruction. Massive amount of stool within the rectum consistent with fecal impaction. Electronically signed by: Basil Ponce M.D. 04/03/2017 9:08 PM Dictated Date/Time: 04/03/2017 8:56 PM The status of this report is Signed. Draft = Not yet reviewed or approved by Radiologist. Signed = Reviewed and approved by Radiologist. <AttendingPhy></AttendingPhy> <FamilyPhy>Lisa Blackmon M.D.</FamilyPhy> < PrimaryPhy>Lisa Blackmon M.D.</PrimaryPhy> <UnitNumber>[id number]</UnitNumber > <VisitNumber>[id number]</VisitNumber> <PatientName>DOALVARO L</ PatientName> <DateOfBirth>1965</DateOfBirth> <Location>[facility]</Location> < ServiceDate>04/03/17</ServiceDate> <MNE>ESINDI</MNE> <OrderingPhy>Nicolas Khan M.D.</OrderingPhy> <OrderingPhyMNE>f rep ord dr redmond</OrderingPhyMNE> < DictatingPhyMNE>f rep dict dr redmond</DictatingPhyMNE> <CCListMNE>f rep ct nyla</ CCListMNE> <AdmittingPhyMNE>f pt admit dr redmond</AdmittingPhyMNE> <AttendingPhyMNE >f pt attend dr redmond</AttendingPhyMNE> <ConsultingPhyMNE>f pt consult dr redmond</ConsultingPhyMNE> <FamilyPhyMNE>f pt fam dr redmond</FamilyPhyMNE> <OtherPhyMNE>f pt other dr redmond</OtherPhyMNE> < PrimaryPhyMNE>f pt prim care dr redmond</PrimaryPhyMNE> <ReferringPhyMNE>f pt referring dr redmond</ReferringPhyMNE> Assessment & Plan patient with gram-negative bacteremia likely E coli, with E coli urinary tract infection and pyelonephritis in the setting of obstructive uropathy. Given need for percutaneous nephrostomy, patient to be transferred to tertiary care center. To be continued on current gram-negative coverage pending transfer. Would recommend discontinuation of levofloxacin for Campylobacter infection, and recommend treatment with azithromycin 500 mg daily for 3 days.
[2017-04-05 15:14] VITALS: BP 136/84; PULSE 94; TEMP 36.8; O2SAT 91
[2017-05-10] MEDS ORDERED: AMOX500T PO ×2 (14:34→14:49)
[2017-05-10] MEDS ORDERED: XRL15 PO ×2 (14:34→14:49)
== END 2017-04-05 19:31 | disposition short-term general hospital (02) | DRG 872 ==
LOC: C.EDA 18:25 → EDBD 18:25 → C.MSN 23:08 → ENRESERV 04-04 01:54
PROVIDERS: ADMIT Internal Medicine; ATTEND Hospitalist
PROC: 0T768DZ Dilation of Right Ureter with Intraluminal Device, Via Natural or Artificial Opening Endoscopic (ICD-10-PCS; principal; 2017-04-04)
DX: A41.9 Sepsis, unspecified organism (principal); N39.0 Urinary tract infection, site not specified; N20.1 Calculus of ureter; G91.1 Obstructive hydrocephalus; F72 Severe intellectual disabilities; G40.909 Epilepsy, unspecified, not intractable, without status epilepticus; Z87.440 Personal history of urinary (tract) infections; Z93.3 Colostomy status

== ENCOUNTER 2017-05-05 12:45 | Inpatient (IN) | payer OTHER ==
[~2017-05-05] VITALS: Ht 152.4 cm; Wt 85.2 kg
[~2017-05-05 12:45] MED LIST changes: -ACET650S10 PR; +CHOL1000 PO; -DLN100 PO; -IPRASOL4 INH; -MOML PO; -OXYC1CAP5 PO; +PHEN50CH PO; -PRLSR20 PO; -SODIENE PR; -TYL325X PO
[2017-05-05 13:41] LABS: BASO % 0.5 %; BASO ABS # 0.04 K/uL (0-0.2); COMPLETE YES; EOS % 5.6 %; HEMATOCRIT 48.4 % (42-52); IG% 0.1 %; LYMPH % 21.2 %; LYMPH ABS # 1.72 K/uL (1.2-3.4); MEAN CELL VOLUME 95.3 fL (80-100); MEAN CORPUSCULAR HEMOGLOBIN 30.1 pg (25-34); MEAN CORPUSCULAR HGB CONC 31.6 g/dl (32-36); MEAN PLATELET VOLUME 11.1 fL (7.4-10.4); MONO % 10.7 %; NEUT % 61.9 %; PLATELET COUNT 265 K/uL (130-400); RED BLOOD COUNT 5.08 M/uL (4.7-6.1)
--- NOTE | 2017-05-05 13:43 | DIAGNOSTIC IMAGING REPORT ---
CHEST 2 VIEWS ROUTINE CLINICAL HISTORY: Cough. COMPARISON STUDY: Chest radiograph April 03, 2017. FINDINGS: A ventriculoperitoneal shunt catheter is partially imaged. There is no pneumothorax or pleural effusion. There is no consolidation to suggest pneumonia. Cardiomediastinal silhouette is stable. Appearance of the chest is unchanged. Note is made of a probable catheter fragment which projects over the left hilum and likely reflects a catheter fragment within the left pulmonary artery extending into the lower lobe pulmonary artery. In retrospect, this was present on prior exams. IMPRESSION: 1. No acute cardiopulmonary findings. No change in appearance of the chest. 2. Suspected catheter fragment within the left pulmonary artery extending into the left lower lobe pulmonary artery. This was present on study of May 10, 2015. Electronically signed by: Basil Ponce M.D. 05/05/2017 1:42 PM Dictated Date/Time: 05/05/2017 1:35 PM
[2017-05-05 13:56] LABS: VEN BLD GAS O2 SATURATION 84.6 %; VEN BLOOD GAS BASE EXCESS 0.7 mEq/L
[2017-05-05 13:59] LABS: BUN/CREATININE RATIO 15.4 (10-20); CALCIUM 9.4 mg/dl (8.5-10.1); CREATININE 0.56 mg/dl (0.60-1.40)
[2017-05-05] MEDS ORDERED: PROM1SUP19 PR (14:04)
[2017-05-05] MEDS ORDERED: POLY335019 PO (14:04)
[2017-05-05] MEDS ORDERED: OXYC1TAB3 PO (14:04)
[2017-05-05] MEDS ORDERED: IPRASOL4 INH (14:04)
[2017-05-05] MEDS ORDERED: CLIN300C2 PO (14:04)
[2017-05-05] MEDS ORDERED: ALBINS/ INH (14:04)
[2017-05-05] MEDS ORDERED: RXC/5 PO (14:04)
[2017-05-05 14:06] LABS: PHENOBARBITAL 15.4 mcg/mL (15.0-40.0)
[2017-05-05] MEDS ORDERED: OPTIRAY 320 IV PRN (14:15)
--- NOTE | 2017-05-05 15:29 | DIAGNOSTIC IMAGING REPORT ---
CHEST CTA for PULMONARY ARTERIES CT DOSE: 1796.09 mGy.cm HISTORY: Short of breath. TECHNIQUE: Multiaxial CT images of the chest were performed following the intravenous administration of contrast to evaluate the pulmonary arteries. Maximal intensity projection images were also obtained. A dose lowering technique was utilized adhering to the principles of ALARA. COMPARISON STUDY: Abdomen and pelvis CT 05/14/2015. FINDINGS: Normal caliber thoracic aorta with no evidence for dissection. There is a linear foreign body seen within the left main pulmonary artery and extending into the left lower lobar pulmonary artery. This is looped within the posterior segmental pulmonary artery of the left lower lobe. This is consistent with an embolized segment of an old catheter. In retrospect, this is present on the 2015 examination. There is heterogeneous enhancement of the left lower lobe posterior segmental pulmonary artery distal to the catheter which is also small in caliber consistent with chronic thrombus. Linear nonocclusive filling defects seen within a proximal left lower lobe segmental pulmonary artery likely represents an additional site of chronic thrombus. Suboptimal opacification of the distal pulmonary arteries due to the timing of contrast. No definite additional filling defects identified within the pulmonary arteries to suggest acute pulmonary. The left lower lobe distal segmental and subsegmental pulmonary arteries are nondiagnostic due to the motion artifact. No suspicious lytic or blastic osseous lesions. Right anterior chest wall shunt catheter is noted. No mediastinal or hilar lymphadenopathy. The heart is normal in size. No pleural or pericardial effusions. No pneumothorax. The central airways are patent. Small nodular density within the left lower lobe on image 102. This measures 6 mm. Mosaic attenuation within the lungs consistent with air trapping. IMPRESSION: 1. There is a linear foreign body seen within the left main pulmonary artery which extends into the left lower lobar pulmonary artery and is looped within the left lower lobe posterior segmental pulmonary artery. This is consistent with an embolized segment of an old catheter. This was present on a 2015 examination. This likely accounts for the small areas of nonocclusive chronic thrombus seen within the left lower lobe segmental pulmonary arteries. 2. No definite evidence for acute pulmonary embolus. 3. Mosaic attenuation within the lungs suggestive of air trapping in the setting of small airways disease. 4. A 6 mm indeterminate nodular density within the left lower lobe. Six-month chest CT follow-up is recommended to ensure resolution/stability. Electronically signed by: Irwin Magallon M.D. 05/05/2017 3:27 PM Dictated Date/Time: 05/05/2017 3:12 PM
--- NOTE | 2017-05-05 15:36 | DIAGNOSTIC IMAGING REPORT ---
CT OF THE ABDOMEN AND PELVIS WITH CONTRAST CLINICAL HISTORY: Abdominal pain. COMPARISON STUDY: CT of the abdomen and pelvis April 03, 2017. TECHNIQUE: Following IV administration of 119 mL of Optiray-320, axial images of the abdomen and pelvis were obtained from the lung bases to the proximal femurs. Images were reviewed in the axial, sagittal, and coronal planes. IV contrast was administered without complication. A dose lowering technique was utilized adhering to the principles of ALARA. FINDINGS: The chest will be reported separately. This exam is moderately compromised by motion artifact. Multiple hypodense hepatic lesions likely reflect cysts. Several are too small to characterize. The spleen, adrenal glands and pancreas are unremarkable. Multiple subcentimeter renal lesions are too small to characterize but likely reflect cysts. There is wall thickening and adjacent infiltration of the right ureter. No ureteral calculus is present. There is no significant collecting system dilatation. There are bilateral renal calculi. There is no evidence for a bowel obstruction. There are findings suggestive of a diverting loop colostomy with associated parastomal hernia/diastases recti which contains multiple loops of bowel. A massive amount of stool within the rectum is unchanged since prior exam. This is consistent with fecal impaction. No suspicious osseous lesions are present. A ventriculoperitoneal shunt catheter terminates within the right mid abdomen. IMPRESSION: 1. Right ureteral wall thickening with adjacent infiltration. No ureteral calculi present on this examination. The findings could reflect a recently passed/extracted calculus or an infectious process such as ureteritis. Bilateral nephrolithiasis. 2. Status post diverting loop colostomy. Associated parastomal hernia/diastasis recti which contains multiple bowel loops without resultant bowel obstruction. Massive amount of stool within the rectum consistent with fecal impaction which is similar to CT of April 03, 2017. 3. Study moderately compromised by motion artifact. Electronically signed by: Basil Ponce M.D. 05/05/2017 3:35 PM Dictated Date/Time: 05/05/2017 3:19 PM
[2017-05-05 16:47] LABS: URINE APPEARANCE CLEAR (CLEAR); URINE BILIRUBIN NEG (NEG); URINE COLOR YELLOW; URINE NITRITE NEG (NEG); URINE PH 6.5 (4.5-7.5); URINE SPECIFIC GRAVITY > 1.045 (1.000-1.030); UROBILINOGEN NEG (NEG); ZZURINE CULT IF INDIC CATH NO
[2017-05-05 16:49] VITALS: BMI 37.4
[2017-05-05 16:49] LABS: MANUAL MICROSCOPIC REQUIRED? NO; REVIEW REQ? NO
--- NOTE | 2017-05-05 16:49 | DIAGNOSTIC IMAGING REPORT ---
HEAD WITHOUT CONTRAST (CT) CT DOSE: 741.55 mGycm HISTORY: Shunt. Hydrocephalus. shunt TECHNIQUE: Multiaxial CT images of the head were performed without the use of intravenous contrast. A dose lowering technique was utilized adhering to the principles of ALARA. Comparison: 05/10/2015 Findings: The paranasal sinuses and mastoid air cells are clear. Interval placement of a ventriculoperitoneal shunt. Tip of the shunt catheter overlies the left lateral ventricle. No evidence for hydrocephalus which is improved from the prior study. Persistent distention of the fourth ventricle. Lateral ventricular system shows no evidence for distention. No evidence for acute intracranial hemorrhage. No midline shift. Impression: Ventriculoperitoneal shunt placement with shunt tube. Remaining good position. 2. Decompression of the ventricles as compared to the prior study with persistent distention of the fourth ventricle. 3. No acute intracranial abnormality. The above report was generated using voice recognition software. It may contain grammatical, syntax or spelling errors. Electronically signed by: Grant Napoles M.D. 05/05/2017 4:48 PM Dictated Date/Time: 05/05/2017 4:45 PM
[2017-05-05] MEDS ORDERED: HEPARIN 25000 UNIT/500 ML D5W ONE (17:05)
[2017-05-05] MEDS ORDERED: HEPARIN SOD 5000 UNIT/0.5 ML CARP ONE (17:05)
[2017-05-05] MEDS ORDERED: PROMETHAZINE HCL 25 MG SUPP PR PRN ×2 (18:30→20:30)
[2017-05-05] MEDS ORDERED: OXYCODONE HCL IR 5 MG TAB (IMMEDIATE RELEASE) PO PRN (18:30)
[2017-05-05 18:56] VITALS: Ht 152.4 cm; Wt 85.2 kg
[2017-05-05] MEDS ORDERED: HEPARIN 25,000 UNIT/500ML D5W 500 ML IV PRN (19:00)
--- NOTE | 2017-05-05 19:12 | History and Physical ---
History & Physical Date & Time of Service: May 05, 2017 at 18:44 Chief Complaint: Abnormal Labs Primary Care Physician: Vale Jensen M.D. History of Present Illness Source: patient, family This is a 52 year old male with a PMH of MR, hx. of hydrocephalus s/p ventriculoperitoneal shunt at childhood, hx. of seizures, hx. of colostomy - sent from senior living due to patient being lethargic, hypoxic and VBG showing hypercapnia - patient was requiring O2 to maintain saturations. At the facility , they obtained a CXR and it was read to show a possible infiltrate, so clindamycin was started, but patient worsened, so he was sent here. 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 Currently, patient is laying in bed, seems to be comfortable, but patient's mother tells me that patient is more lethargic than usual. Past Medical/Surgical History Medical Problems: (1) Bowel obstruction Status: Resolved (2) Cognitive disorder Status: Chronic (3) Hydrocephalus Status: Chronic (4) Seizure disorder Status: Chronic (5) Sepsis Status: Resolved Surgical Problems: (1) Colostomy in place Status: Chronic (2) Status post ventriculoperitoneal shunt Status: Chronic Family History No significant family history Social History Smoking Status: Never Smoker Drug Use: none Marital Status: single Occupational Status: disabled Multi-Drug Resistant Organisms History of MDRO: Yes Type of MDRO: VRE Allergies Coded Allergies: No Known Allergies (Unverified , 05/10/15) Home Medications Scheduled Acetazolamide (Acetazolamide), 125 MG PO BID Albuterol Sulf (Proventil 0.083% 2.5MG/3ML), 2.5 MG INH TID Bisacodyl (Bisacodyl), 5 MG PO DAILY Citalopram (Citalopram Hydrobromide), 40 MG PO DAILY Clindamycin Hcl (Cleocin), 300 MG PO TID Clonazepam (Clonazepam), 0.5 MG PO BID Ethosuximide (Zarontin), 250 MG PO BID Lorazepam (Lorazepam), 0.5 MG PO BID Oxycodone HCl (Oxycodone HCl), 5 MG PO Q8H Phenobarbital (Phenobarbital), 16.2 MG PO 5XDAY Phenytoin (Phenytoin Infatabs), 150 MG PO QPM Phenytoin (Dilantin Chewable), 150 MG PO QAM Polyethylene Glycol 3350 (Miralax), 17 GM PO BID Sennosides-Docusate Sodium (Senna-S), 2 TAB PO BID Scheduled PRN Ipratropium-Albuterol (Duoneb), 1 TREATMENT INH Q6H PRN for Wheezing Oxycodone Ir (Roxicodone Ir), 5 MG PO Q4H PRN for Severe Pain Promethazine (Phenergan Suppository), 25 MG RI Q6H PRN for Nausea Review of Systems Unable to obtain due to patient's mental status Physical Exam Vital Signs Date Time Temp Pulse Resp B/P (MAP) Pulse Ox O2 Delivery O2 Flow Rate FiO2 05/05/17 16:49 Room Air 05/05/17 16:02 85 135/87 100 Room Air 05/05/17 12:59 37.0 81 20 149/94 90 Room Air General Appearance: no apparent distress, + obese, + pertinent finding (MR, answers yes or no to some questions) Head: + abnormal shape (chronic) ENT: hearing grossly normal, + pertinent finding (edentulous) Neck: supple Respiratory/Chest: lungs clear, normal breath sounds, no respiratory distress, no accessory muscle use Cardiovascular: regular rate, rhythm, no edema, no murmur Abdomen/GI: normal bowel sounds, non tender, soft, + hernia (umbilical), + pertinent finding (+colostomy) Extremities/Musculoskelatal: normal capillary refill, no pedal edema Neurologic/Psych: alert, normal mood/affect, + pertinent finding (underlying mental retardation; hands are flexed chronically) Skin: normal color Lymphatic: no adenopathy Diagnostics Laboratory Results Results Past 24 Hours Test 05/05/17 00:00 05/05/17 13:20 05/05/17 13:45 Range/Units Urine Color YELLOW Urine Appearance CLEAR CLEAR Urine pH 6.5 4.5-7.5 Urine Specific [place] > 1.045 1.000-1.030 Urine Protein NEG NEG Urine Glucose (UA) NEG NEG Urine Ketones NEG NEG Urine Occult Blood NEG NEG Urine Nitrite NEG NEG Urine Bilirubin NEG NEG Urine Urobilinogen NEG NEG Urine Leukocyte Esterase NEG NEG Urine WBC (Auto) 1-5 0-5 /hpf Urine RBC (Auto) 0-4 0-4 /hpf Urine Hyaline Casts (Auto) 1-5 0-5 /lpf Urine Epithelial Cells (Auto) 5-10 0-5 /lpf Urine Bacteria (Auto) NEG NEG White Blood Count 8.10 4.8-10.8 K/uL Red Blood Count 5.08 4.7-6.1 M/uL Hemoglobin 15.3 14.0-18.0 g/dL Hematocrit 48.4 42-52 % Mean Corpuscular Volume 95.3 80-100 fL Mean Corpuscular Hemoglobin 30.1 25-34 pg Mean Corpuscular Hemoglobin Concent 31.6 32-36 g/dl Platelet Count 265 130-400 K/uL Mean Platelet Volume 11.1 7.4-10.4 fL Neutrophils (%) (Auto) 61.9 % Lymphocytes (%) (Auto) 21.2 % Monocytes (%) (Auto) 10.7 % Eosinophils (%) (Auto) 5.6 % Basophils (%) (Auto) 0.5 % Neutrophils # (Auto) 5.01 1.4-6.5 K/uL Lymphocytes # (Auto) 1.72 1.2-3.4 K/uL Monocytes # (Auto) 0.87 0.11-0.59 K/uL Eosinophils # (Auto) 0.45 0-0.5 K/uL Basophils # (Auto) 0.04 0-0.2 K/uL RDW Standard Deviation 49.8 36.4-46.3 fL RDW Coefficient of Variation 14.0 11.5-14.5 % Immature Granulocyte % (Auto) 0.1 % Immature Granulocyte # (Auto) 0.01 0.00-0.02 K/uL Sodium Level 142 136-145 mmol/L Potassium Level 4.0 3.5-5.1 mmol/L Chloride Level 111 98-107 mmol/L Carbon Dioxide Level 27 21-32 mmol/L Anion Gap 4.0 3-11 mmol/L Blood Urea Nitrogen 9 7-18 mg/dl Creatinine 0.56 0.60-1.40 mg/dl Est Creatinine Clear Calc Drug Dose 141.3 ml/min Estimated GFR () 137.8 Estimated GFR (Non- 118.9 BUN/Creatinine Ratio 15.4 10-20 Random Glucose 94 70-99 mg/dl Calcium Level 9.4 8.5-10.1 mg/dl Total Bilirubin 0.2 0.2-1 mg/dl Direct Bilirubin 0.1 0-0.2 mg/dl Aspartate Amino Transf (AST/SGOT) 15 15-37 U/L Alanine Aminotransferase (ALT/SGPT) 26 12-78 U/L Alkaline Phosphatase 139 45-117 U/L Total Protein 8.2 6.4-8.2 gm/dl Albumin 3.3 3.4-5.0 gm/dl Lipase 135 73-393 U/L Phenytoin (Dilantin) Level 15.0 10-20 mcg/mL Phenobarbital Level 15.4 15.0-40.0 mcg/mL Venous Blood pH 7.38 7.36-7.41 Venous Blood Partial Pressure CO2 45 38.0-50.0 mmHg Venous Blood Partial Pressure O2 49 mmHg Venous Blood HCO3 26 mmol/L Venous Blood Oxygen Saturation 84.6 % Venous Blood Base Excess 0.7 mEq/L Diagnostic Radiology CHEST 2 VIEWS ROUTINE CLINICAL HISTORY: Cough. COMPARISON STUDY: Chest radiograph April 03, 2017. FINDINGS: A ventriculoperitoneal shunt catheter is partially imaged. There is no pneumothorax or pleural effusion. There is no consolidation to suggest pneumonia. Cardiomediastinal silhouette is stable. Appearance of the chest is unchanged. Note is made of a probable catheter fragment which projects over the left hilum and likely reflects a catheter fragment within the left pulmonary artery extending into the lower lobe pulmonary artery. In retrospect, this was present on prior exams. IMPRESSION: 1. No acute cardiopulmonary findings. No change in appearance of the chest. 2. Suspected catheter fragment within the left pulmonary artery extending into the left lower lobe pulmonary artery. This was present on study of May 10, 2015. CHEST CTA for PULMONARY ARTERIES CT DOSE: 1796.09 mGy.cm HISTORY: Short of breath. TECHNIQUE: Multiaxial CT images of the chest were performed following the intravenous administration of contrast to evaluate the pulmonary arteries. Maximal intensity projection images were also obtained. A dose lowering technique was utilized adhering to the principles of ALARA. COMPARISON STUDY: Abdomen and pelvis CT 05/14/2015. FINDINGS: Normal caliber thoracic aorta with no evidence for dissection. There is a linear foreign body seen within the left main pulmonary artery and extending into the left lower lobar pulmonary artery. This is looped within the posterior segmental pulmonary artery of the left lower lobe. This is consistent with an embolized segment of an old catheter. In retrospect, this is present on the 2015 examination. There is heterogeneous enhancement of the left lower lobe posterior segmental pulmonary artery distal to the catheter which is also small in caliber consistent with chronic thrombus. Linear nonocclusive filling defects seen within a proximal left lower lobe segmental pulmonary artery likely represents an additional site of chronic thrombus. Suboptimal opacification of the distal pulmonary arteries due to the timing of contrast. No definite additional filling defects identified within the pulmonary arteries to suggest acute pulmonary. The left lower lobe distal segmental and subsegmental pulmonary arteries are nondiagnostic due to the motion artifact. No suspicious lytic or blastic osseous lesions. Right anterior chest wall shunt catheter is noted. No mediastinal or hilar lymphadenopathy. The heart is normal in size. No pleural or pericardial effusions. No pneumothorax. The central airways are patent. Small nodular density within the left lower lobe on image 102. This measures 6 mm. Mosaic attenuation within the lungs consistent with air trapping. IMPRESSION: 1. There is a linear foreign body seen within the left main pulmonary artery which extends into the left lower lobar pulmonary artery and is looped within the left lower lobe posterior segmental pulmonary artery. This is consistent with an embolized segment of an old catheter. This was present on a 2015 examination. This likely accounts for the small areas of nonocclusive chronic thrombus seen within the left lower lobe segmental pulmonary arteries. 2. No definite evidence for acute pulmonary embolus. 3. Mosaic attenuation within the lungs suggestive of air trapping in the setting of small airways disease. 4. A 6 mm indeterminate nodular density within the left lower lobe. Six-month chest CT follow-up is recommended to ensure resolution/stability. CT OF THE ABDOMEN AND PELVIS WITH CONTRAST CLINICAL HISTORY: Abdominal pain. COMPARISON STUDY: CT of the abdomen and pelvis April 03, 2017. TECHNIQUE: Following IV administration of 119 mL of [id number]-320, axial images of the abdomen and pelvis were obtained from the lung bases to the proximal femurs. Images were reviewed in the axial, sagittal, and coronal planes. IV contrast was administered without complication. A dose lowering technique was utilized adhering to the principles of ALARA. FINDINGS: The chest will be reported separately. This exam is moderately compromised by motion artifact. Multiple hypodense hepatic lesions likely reflect cysts. Several are too small to characterize. The spleen, adrenal glands and pancreas are unremarkable. Multiple subcentimeter renal lesions are too small to characterize but likely reflect cysts. There is wall thickening and adjacent infiltration of the right ureter. No ureteral calculus is present. There is no significant collecting system dilatation. There are bilateral renal calculi. There is no evidence for a bowel obstruction. There are findings suggestive of a diverting loop colostomy with associated parastomal hernia/diastases recti which contains multiple loops of bowel. A massive amount of stool within the rectum is unchanged since prior exam. This is consistent with fecal impaction. No suspicious osseous lesions are present. A ventriculoperitoneal shunt catheter terminates within the right mid abdomen. IMPRESSION: 1. Right ureteral wall thickening with adjacent infiltration. No ureteral calculi present on this examination. The findings could reflect a recently passed/extracted calculus or an infectious process such as ureteritis. Bilateral nephrolithiasis. 2. Status post diverting loop colostomy. Associated parastomal hernia/diastasis recti which contains multiple bowel loops without resultant bowel obstruction. Massive amount of stool within the rectum consistent with fecal impaction which is similar to CT of April 03, 2017. 3. Study moderately compromised by motion artifact. HEAD WITHOUT CONTRAST (CT) CT DOSE: 741.55 mGycm HISTORY: Shunt. Hydrocephalus. shunt TECHNIQUE: Multiaxial CT images of the head were performed without the use of intravenous contrast. A dose lowering technique was utilized adhering to the principles of ALARA. Comparison: 05/10/2015 Findings: The paranasal sinuses and mastoid air cells are clear. Interval placement of a ventriculoperitoneal shunt. Tip of the shunt catheter overlies the left lateral ventricle. No evidence for hydrocephalus which is improved from the prior study. Persistent distention of the fourth ventricle. Lateral ventricular system shows no evidence for distention. No evidence for acute intracranial hemorrhage. No midline shift. Impression: Ventriculoperitoneal shunt placement with shunt tube. Remaining good position. 2. Decompression of the ventricles as compared to the prior study with persistent distention of the fourth ventricle. 3. No acute intracranial abnormality. EKG Sinus tachycardia Impression Assessment and Plan This is a pleasant 52 year old male with mental retardation who presents with hx. of hydrocephalus s/p ventriculoperitoneal shunt at childhood, hx. of seizures, controlled with meds with no seizures for ~ 30 years, hx. of colostomy secondary to obstruction, recent admission to [facility] with nephrolithiasis and Campylobacter enteritis sent from senior living due to hypoxia and VBG showing CO2 retention - found to have foreign body in pulmonary artery. Foreign Body in Pulmonary Artery appreciate vascular input at this point we will start IV heparin transition to NOAC as per mother Xarelto is an option that family is agreeable to vascular surgery consulted O2 as needed nebs as needed Pulmonary Nodule 6mm nodule noted; repeat chest CT in 6 months Seizure Disorder continue current medications Phenytoin + Phenobarbital levels were checked and therapeutic continue Acetazolamide and Ethosuximide as well no seizures ~ 30 years Constipation continue current medications has a colostomy due to previous obstruction, stool usually drains in colostomy DVT ppx IV heparin FULL CODE Advanced Directives Existing Living Will: No Existing Power of Silk Screen Etcher: Yes VTE Prophylaxis VTE Risk Assessment Done? Y/N: Yes Risk Level: High Given or contraindicated: Other Anticoagulation
[2017-05-05] MEDS ORDERED: LEVALBUTEROL 0.63MG/3 ML NEB INH PRN (19:15)
--- NOTE | 2017-05-05 19:22 | EMERGENCY ROOM VISIT NOTE ---
History Report prepared by Reji: Juan F Bucio Under the Supervision of: Dr. Juanjose Cottrell D.O. First contact with patient: 12:49 Stated Complaint: ABNORMAL LABS History of Present Illness The patient is a 52 year old male who presents to the Emergency Room of abnormal labs taken earlier today. The patient states that he has some chronic neck pain. Per the nursing staff, the patient had an abnormal VBG. History limited secondary to patient's mental status. Per halfway patient was lethargic earlier today not acting normally. He has been requiring oxygen since discharge from the patient which is new. Family showed up towards the end of the evaluation after patient being in the ER for several hours. Family members note that the patient has a right-sided facial droop and is very lethargic. Patient did have a recent stent placed and removed. Source of History: patient, nursing staff Onset: this morning Position: other (global) Quality: other (abnormal labs) Associated Symptoms: + neck pain Review of Systems See HPI for pertinent positives & negatives. A total of 10 systems reviewed and were otherwise negative. Past Medical & Surgical Medical Problems: (1) Bowel obstruction (2) Cognitive disorder (3) Foreign body in lung (4) Hydrocephalus (5) Obstructive hydrocephalus (6) Obstructive hydrocephalus (7) Seizure disorder (8) Sepsis (9) UTI (urinary tract infection) Surgical Problems: (1) Colostomy in place (2) Status post ventriculoperitoneal shunt Family History No significant family history Social History Smoking Status: Never Smoker Alcohol Use: none Drug Use: none Marital Status: single Housing Status: halfway Occupation Status: disabled Current/Historical Medications Scheduled Acetazolamide (Acetazolamide), 125 MG PO BID Albuterol Sulf (Proventil 0.083% 2.5MG/3ML), 2.5 MG INH TID Bisacodyl (Bisacodyl), 5 MG PO DAILY Citalopram (Citalopram Hydrobromide), 40 MG PO DAILY Clindamycin Hcl (Cleocin), 300 MG PO TID Clonazepam (Clonazepam), 0.5 MG PO BID Ethosuximide (Zarontin), 250 MG PO BID Lorazepam (Lorazepam), 0.5 MG PO BID Oxycodone HCl (Oxycodone HCl), 5 MG PO Q8H Phenobarbital (Phenobarbital), 16.2 MG PO 5XDAY Phenytoin (Phenytoin Infatabs), 150 MG PO QPM Phenytoin (Dilantin Chewable), 150 MG PO QAM Polyethylene Glycol 3350 (Miralax), 17 GM PO BID Sennosides-Docusate Sodium (Senna-S), 2 TAB PO BID Scheduled PRN Ipratropium-Albuterol (Duoneb), 1 TREATMENT INH Q6H PRN for Wheezing Oxycodone Ir (Roxicodone Ir), 5 MG PO Q4H PRN for Severe Pain Promethazine (Phenergan Suppository), 25 MG FL Q6H PRN for Nausea Allergies Coded Allergies: No Known Allergies (Unverified , 05/10/15) Physical Exam Vital Signs Date Time Temp Pulse Resp B/P (MAP) Pulse Ox O2 Delivery O2 Flow Rate FiO2 05/05/17 19:07 86 20 193/85 96 05/05/17 19:06 37.0 86 20 193/62 100 Room Air 05/05/17 16:49 Room Air 05/05/17 16:02 85 135/87 100 Room Air 05/05/17 12:59 37.0 81 20 149/94 90 Room Air Physical Exam GENERAL: Sitting up in bed on nasal cannula. Chronically ill-appearing and disheveled. EYE EXAM: normal conjunctiva OROPHARYNX: no exudate, no erythema, lips, buccal mucosa, and tongue normal and mucous membranes are dry NECK: supple, no nuchal rigidity, no adenopathy, non-tender LUNGS: Clear to auscultation. Normal chest wall mechanics HEART: no murmurs, S1 normal and S2 normal ABDOMEN: Ostomy located in the mid abdomen with brown stool. Abdomen soft, non- tender, normo-active bowel sounds, no masses, no rebound or guarding. BACK: Back is symmetrical on inspection and there is no deformity, no midline tenderness, no CVA tenderness. SKIN: no rashes and no bruising UPPER EXTREMITIES: upper extremities are grossly normal. LOWER EXTREMITIES: No pitting edema. NEURO EXAM: Alert, able to state name, moves all extremities. Contractures in the upper extremities. Good grasp. No focal deficits. Medical Decision & Procedures ER Provider Diagnostic Interpretation: Radiology results as stated below per my review and the radiologist's interpretation: CHEST 2 VIEWS ROUTINE CLINICAL HISTORY: Cough. COMPARISON STUDY: Chest radiograph April 03, 2017. FINDINGS: A ventriculoperitoneal shunt catheter is partially imaged. There is no pneumothorax or pleural effusion. There is no consolidation to suggest pneumonia. Cardiomediastinal silhouette is stable. Appearance of the chest is unchanged. Note is made of a probable catheter fragment which projects over the left hilum and likely reflects a catheter fragment within the left pulmonary artery extending into the lower lobe pulmonary artery. In retrospect, this was present on prior exams. IMPRESSION: 1. No acute cardiopulmonary findings. No change in appearance of the chest. 2. Suspected catheter fragment within the left pulmonary artery extending into the left lower lobe pulmonary artery. This was present on study of May 10, 2015. Electronically signed by: Basil Ponce M.D. 05/05/2017 1:42 PM Dictated Date/Time: 05/05/2017 1:35 PM CHEST CTA for PULMONARY ARTERIES CT DOSE: 1796.09 mGy.cm HISTORY: Short of breath. TECHNIQUE: Multiaxial CT images of the chest were performed following the intravenous administration of contrast to evaluate the pulmonary arteries. Maximal intensity projection images were also obtained. A dose lowering technique was utilized adhering to the principles of ALARA. COMPARISON STUDY: Abdomen and pelvis CT 05/14/2015. FINDINGS: Normal caliber thoracic aorta with no evidence for dissection. There is a linear foreign body seen within the left main pulmonary artery and extending into the left lower lobar pulmonary artery. This is looped within the posterior segmental pulmonary artery of the left lower lobe. This is consistent with an embolized segment of an old catheter. In retrospect, this is present on the 2014 examination. There is heterogeneous enhancement of the left lower lobe posterior segmental pulmonary artery distal to the catheter which is also small in caliber consistent with chronic thrombus. Linear nonocclusive filling defects seen within a proximal left lower lobe segmental pulmonary artery likely represents an additional site of chronic thrombus. Suboptimal opacification of the distal pulmonary arteries due to the timing of contrast. No definite additional filling defects identified within the pulmonary arteries to suggest acute pulmonary. The left lower lobe distal segmental and subsegmental pulmonary arteries are nondiagnostic due to the motion artifact. No suspicious lytic or blastic osseous lesions. Right anterior chest wall shunt catheter is noted. No mediastinal or hilar lymphadenopathy. The heart is normal in size. No pleural or pericardial effusions. No pneumothorax. The central airways are patent. Small nodular density within the left lower lobe on image 102. This measures 6 mm. Mosaic attenuation within the lungs consistent with air trapping. IMPRESSION: 1. There is a linear foreign body seen within the left main pulmonary artery which extends into the left lower lobar pulmonary artery and is looped within the left lower lobe posterior segmental pulmonary artery. This is consistent with an embolized segment of an old catheter. This was present on a 2015 examination. This likely accounts for the small areas of nonocclusive chronic thrombus seen within the left lower lobe segmental pulmonary arteries. 2. No definite evidence for acute pulmonary embolus. 3. Mosaic attenuation within the lungs suggestive of air trapping in the setting of small airways disease. 4. A 6 mm indeterminate nodular density within the left lower lobe. Six-month chest CT follow-up is recommended to ensure resolution/stability. Electronically signed by: Irwin Magallon M.D. 05/05/2017 3:27 PM Dictated Date/Time: 05/05/2017 3:[address] OF THE ABDOMEN AND PELVIS WITH CONTRAST CLINICAL HISTORY: Abdominal pain. COMPARISON STUDY: CT of the abdomen and pelvis April 03, 2017. TECHNIQUE: Following IV administration of 119 mL of Optiray-320, axial images of the abdomen and pelvis were obtained from the lung bases to the proximal femurs. Images were reviewed in the axial, sagittal, and coronal planes. IV contrast was administered without complication. A dose lowering technique was utilized adhering to the principles of ALARA. FINDINGS: The chest will be reported separately. This exam is moderately compromised by motion artifact. Multiple hypodense hepatic lesions likely reflect cysts. Several are too small to characterize. The spleen, adrenal glands and pancreas are unremarkable. Multiple subcentimeter renal lesions are too small to characterize but likely reflect cysts. There is wall thickening and adjacent infiltration of the right ureter. No ureteral calculus is present. There is no significant collecting system dilatation. There are bilateral renal calculi. There is no evidence for a bowel obstruction. There are findings suggestive of a diverting loop colostomy with associated parastomal hernia/diastases recti which contains multiple loops of bowel. A massive amount of stool within the rectum is unchanged since prior exam. This is consistent with fecal impaction. No suspicious osseous lesions are present. A ventriculoperitoneal shunt catheter terminates within the right mid abdomen. IMPRESSION: 1. Right ureteral wall thickening with adjacent infiltration. No ureteral calculi present on this examination. The findings could reflect a recently passed/extracted calculus or an infectious process such as ureteritis. Bilateral nephrolithiasis. 2. Status post diverting loop colostomy. Associated parastomal hernia/diastasis recti which contains multiple bowel loops without resultant bowel obstruction. Massive amount of stool within the rectum consistent with fecal impaction which is similar to CT of April 03, 2017. 3. Study moderately compromised by motion artifact. Electronically signed by: Basil Ponce M.D. 05/05/2017 3:35 PM Dictated Date/Time: 05/05/2017 3:19 PM HEAD WITHOUT CONTRAST (CT) CT DOSE: 741.55 mGycm HISTORY: Shunt. Hydrocephalus. shunt TECHNIQUE: Multiaxial CT images of the head were performed without the use of intravenous contrast. A dose lowering technique was utilized adhering to the principles of ALARA. Comparison: 05/10/2015 Findings: The paranasal sinuses and mastoid air cells are clear. Interval placement of a ventriculoperitoneal shunt. Tip of the shunt catheter overlies the left lateral ventricle. No evidence for hydrocephalus which is improved from the prior study. Persistent distention of the fourth ventricle. Lateral ventricular system shows no evidence for distention. No evidence for acute intracranial hemorrhage. No midline shift. Impression: Ventriculoperitoneal shunt placement with shunt tube. Remaining good position. 2. Decompression of the ventricles as compared to the prior study with persistent distention of the fourth ventricle. 3. No acute intracranial abnormality. The above report was generated using voice recognition software. It may contain grammatical, syntax or spelling errors. Electronically signed by: Grant Napoles M.D. 05/05/2017 4:48 PM Dictated Date/Time: 05/05/2017 4:45 PM Laboratory Results 05/05/17 13:20 Red Blood Count 5.08, Mean Corpuscular Volume 95.3, Mean Corpuscular Hemoglobin 30.1, Mean Corpuscular Hemoglobin Concent 31.6, Mean Platelet Volume 11.1, Neutrophils (%) (Auto) 61.9, Lymphocytes (%) (Auto) 21.2, Monocytes (%) (Auto) 10.7, Eosinophils (%) (Auto) 5.6, Basophils (%) (Auto) 0.5, Neutrophils # (Auto ) 5.01, Lymphocytes # (Auto) 1.72, Monocytes # (Auto) 0.87, Eosinophils # (Auto ) 0.45, Basophils # (Auto) 0.04 05/05/17 13:20 Test 05/05/17 00:00 05/05/17 13:20 05/05/17 13:45 Urine Color YELLOW Urine Appearance CLEAR (CLEAR) Urine pH 6.5 (4.5-7.5) Urine Specific [place] > 1.045 (1.000-1.030) Urine Protein NEG (NEG) Urine Glucose (UA) NEG (NEG) Urine Ketones NEG (NEG) Urine Occult Blood NEG (NEG) Urine Nitrite NEG (NEG) Urine Bilirubin NEG (NEG) Urine Urobilinogen NEG (NEG) Urine Leukocyte Esterase NEG (NEG) Urine WBC (Auto) 1-5 /hpf (0-5) Urine RBC (Auto) 0-4 /hpf (0-4) Urine Hyaline Casts (Auto) 1-5 /lpf (0-5) Urine Epithelial Cells (Auto) 5-10 /lpf (0-5) Urine Bacteria (Auto) NEG (NEG) White Blood Count 8.10 K/uL (4.8-10.8) Red Blood Count 5.08 M/uL (4.7-6.1) Hemoglobin 15.3 g/dL (14.0-18.0) Hematocrit 48.4 % (42-52) Mean Corpuscular Volume 95.3 fL (80-100) Mean Corpuscular Hemoglobin 30.1 pg (25-34) Mean Corpuscular Hemoglobin Concent 31.6 g/dl (32-36) Platelet Count 265 K/uL (130-400) Mean Platelet Volume 11.1 fL (7.4-10.4) Neutrophils (%) (Auto) 61.9 % Lymphocytes (%) (Auto) 21.2 % Monocytes (%) (Auto) 10.7 % Eosinophils (%) (Auto) 5.6 % Basophils (%) (Auto) 0.5 % Neutrophils # (Auto) 5.01 K/uL (1.4-6.5) Lymphocytes # (Auto) 1.72 K/uL (1.2-3.4) Monocytes # (Auto) 0.87 K/uL (0.11-0.59) Eosinophils # (Auto) 0.45 K/uL (0-0.5) Basophils # (Auto) 0.04 K/uL (0-0.2) RDW Standard Deviation 49.8 fL (36.4-46.3) RDW Coefficient of Variation 14.0 % (11.5-14.5) Immature Granulocyte % (Auto) 0.1 % Immature Granulocyte # (Auto) 0.01 K/uL (0.00-0.02) Anion Gap 4.0 mmol/L (3-11) Est Creatinine Clear Calc Drug Dose 141.3 ml/min Estimated GFR () 137.8 Estimated GFR (Non- 118.9 BUN/Creatinine Ratio 15.4 (10-20) Calcium Level 9.4 mg/dl (8.5-10.1) Total Bilirubin 0.2 mg/dl (0.2-1) Direct Bilirubin 0.1 mg/dl (0-0.2) Aspartate Amino Transf (AST/SGOT) 15 U/L (15-37) Alanine Aminotransferase (ALT/SGPT) 26 U/L (12-78) Alkaline Phosphatase 139 U/L (45-117) Total Protein 8.2 gm/dl (6.4-8.2) Albumin 3.3 gm/dl (3.4-5.0) Lipase 135 U/L (73-393) Phenytoin (Dilantin) Level 15.0 mcg/mL (10-20) Phenobarbital Level 15.4 mcg/mL (15.0-40.0) Venous Blood pH 7.38 (7.36-7.41) Venous Blood Partial Pressure CO2 45 mmHg (38.0-50.0) Venous Blood Partial Pressure O2 49 mmHg Venous Blood HCO3 26 mmol/L Venous Blood Oxygen Saturation 84.6 % Venous Blood Base Excess 0.7 mEq/L Laboratory results per my review. Medications Administered Medications (Trade) Dose Ordered Sig/Jose A Route Start Time Stop Time Status Last Admin Dose Admin Heparin Sodium/ Dextrose (Heparin 25,000 Unit/500ml D5W) 25,000 unit STK-MED ONCE .ROUTE 05/05/17 17:05 05/05/17 17:06 DC 05/05/17 17:49 25,000 UNIT Heparin Sodium (Porcine) (Heparin Sq 5000 Unit/0.5ml) 5,000 unit STK-MED ONCE .ROUTE 05/05/17 17:05 05/05/17 17:06 DC 05/05/17 17:46 5,000 UNIT ED Course ED COURSE: Vital signs were reviewed and showed hypoxia The patients medical record was reviewed The above diagnostic studies were performed and reviewed. ED treatments and interventions as stated above. 1249: The patient was evaluated in room A12. A complete history and physical examination was performed. 1312: I talked with the patient's nurse practitioner, and she said that the patient was sent over because he was unresponsive this morning, and he had a VGB done today that was abnormal. She did not evaluate the patient or know the results. 1606: I discussed the patient's case with Dr. Felder, and he recommends to anticoagulate the patient 1625: I talked with the patient's family, and they state that the patient is more confused, and he is having a new right sided facial droop. 1702: Upon reevaluation, the patient is resting.I discussed my findings with the patient and his family and they understand and agree with the treatment plan. Based on the patients age, coexisting illnesses, exam and lab findings the decision to treat as an inpatient was made. The patient remained stable while under my care. The patient will be evaluated for further management. 1705: Heparin Sodium (Porcine) 5000units IV, Heparin Sodium/ Dextrose [id number] IV 1717: I reviewed the patient's case with Dr. Sanchez. He will evaluate the patient for further management. Medical Decision Differential diagnoses includes but is not limited to toxic, metabolic, infectious, traumatic, cardiac, neurologic, hematologic, psychiatric and inflammatory etiologies. Patient is a 52-year-old male with hydrocephalus who presents to the ER from the halfway for an abnormal VBG and increased O2 requirements. Patient recently discharged from [facility] following removal of a ureteral stent placed on. Patient was very lethargic and difficult to arouse earlier this morning. Family notes a right-sided facial droop and increased confusion as well. Chest x-ray supports a foreign body in the left pulmonary artery. CT chest and abdomen was performed. This confirms likely a catheter tip in the left pulmonary artery. Several appear to be chronic PEs. Discussed with Dr. Felder and notes that this would not be amenable for removal. Recommends treating for PEs. Family members note right-sided facial droop. CT head was performed and negative. CBC all BMP, LFTs, bilirubin lipase is unremarkable. ABG was unremarkable. UA was negative. Family was updated regards to findings. Patient was placed on heparin drip and bolus following them noting patient had no risk factors which include hematemesis, hemoptysis, hematuria, melena, or recent trauma/surgery/previous brain bleeds. Medication Reconcilliation Current Medication List: was personally reviewed by me Blood Pressure Screening Patient's blood pressure: Normal blood pressure Consults Time Called: 1600 Consulting Physician: Dr. Felder Returned Call: 1606 I discussed the patient's case with Dr. Felder, and he recommends to anticoagulate the patient Additional Consults: Time Called: 1705 Consulted Physician: Dr. Sanchez Returned Call: [phone] Additional Comments: I reviewed the patient's case with Dr. Sanchez. He will evaluate the patient for further management. Impression Primary Impression: Altered mental status Additional Impressions: Facial droop foreign body in the pulmonary artery Pulmonary embolism Critical Care I have personally spent 35 minutes of critical care time in the direct management of this patient. This includes bedside care, interpretation of diagnostic studies, and testing, discussion with consultants, patient, and family members, and other required patient management activities. This 35 minutes is in excess of all separately billable procedures. Scribe Attestation The scribe's documentation has been prepared under my direction and personally reviewed by me in its entirety. I confirm that the note above accurately reflects all work, treatment, procedures, and medical decision making performed by me. Departure Information Dispostion Being Evaluated By Hospitalist Lisa Holden M.D. (PCP) Problem Qualifiers Primary Impression: Altered mental status Altered mental status type: unspecified Qualified Codes: R41.82 - Altered mental status, unspecified Additional Impressions: Pulmonary embolism Pulmonary embolism type: other Chronicity: chronic Acute cor pulmonale presence: without acute cor pulmonale Qualified Codes: I27.82 - Chronic pulmonary embolism
[2017-05-05] MEDS: ALBUTEROL 0.083% NEBU SOLN 3 ML VIAL INH SCH (20:30)
[2017-05-05 20:32] VITALS: PULSE 88; O2SAT 93
[2017-05-05] MEDS: LORAZEPAM 0.5 MG TAB PO SCH (21:36)
[2017-05-05] MEDS: CLONAZEPAM 0.5 MG TAB PO SCH (21:36)
[2017-05-05] MEDS: PHENYTOIN 50 MG CHEW PO SCH (21:36)
[2017-05-05] MEDS: OXYCODONE HCL IR 5 MG TAB (IMMEDIATE RELEASE) PO SCH (21:37)
[2017-05-05] MEDS: PHENOBARBITAL 32.4 MG TAB PO SCH (21:37)
[2017-05-05] MEDS: DOCUSATE SODIUM/SENNA 50/8.6MG TAB PO SCH (21:38)
[2017-05-05] MEDS: AcetaZOLAMIDE 250 MG TAB PO SCH (22:15)
[2017-05-05] MEDS: POLYETHYLENE (MIRALAX) 17 GM PACK PO SCH (22:15)
[2017-05-05 22:55] VITALS: BP 145/90; PULSE 83; TEMP 36.8; O2SAT 94
[2017-05-05] MEDS: ETHOSUXIMIDE PO SCH (23:08)
[2017-05-05 23:59] VITALS: O2SAT 95
[2017-05-06] VITALS (11 sets, daily range): BP systolic 107–141; BP diastolic 69–96; PULSE 68–90; TEMP 36.6–37.4; O2SAT 92–100
[2017-05-06 03:51] LABS: HEMATOCRIT 47.8 % (42-52); MEAN CELL VOLUME 95.2 fL (80-100); MEAN CORPUSCULAR HEMOGLOBIN 30.5 pg (25-34); MEAN PLATELET VOLUME 11.1 fL (7.4-10.4); PLATELET COUNT 237 K/uL (130-400); RED BLOOD COUNT 5.02 M/uL (4.7-6.1)
[2017-05-06 04:07] LABS: INR 1.1 (0.9-1.1); PARTIAL THROMBOPLASTIN RATIO 3.5; PROTHROMBIN TIME (PATIENT) 11.6 SECONDS (9.0-12.0)
[2017-05-06 04:19] LABS: BUN/CREATININE RATIO 13.9 (10-20); CALCIUM 9.2 mg/dl (8.5-10.1); CREATININE 0.57 mg/dl (0.60-1.40); MAGNESIUM 2.2 mg/dl (1.8-2.4); POTASSIUM 3.5 mmol/L (3.5-5.1)
[2017-05-06] MEDS: OXYCODONE HCL IR 5 MG TAB (IMMEDIATE RELEASE) PO SCH ×3 (05:26→22:15)
--- NOTE | 2017-05-06 06:12 | Medical Consult ---
Consultation Note Date of Service May 06, 2017. Consultation Note Will see patient later today. Already discussed this with ED physician when patient was in the ED Catheter has been in PA for years. Most likely adherent to wall of artery due to fibrous hyperplasia around the catheter. High chance of tearing the PA when trying to remove. May want to get opinion from thoracic surgery also.
[2017-05-06] MEDS: PHENOBARBITAL 32.4 MG TAB PO SCH ×5 (07:14→22:14)
[2017-05-06] MEDS: ALBUTEROL 0.083% NEBU SOLN 3 ML VIAL INH SCH ×3 (07:18→19:30)
[2017-05-06] MEDS: LORAZEPAM 0.5 MG TAB PO SCH ×2 (08:24→22:19)
[2017-05-06] MEDS: CITALOPRAM 40 MG TAB PO SCH (08:25)
[2017-05-06] MEDS: AcetaZOLAMIDE 250 MG TAB PO SCH ×2 (08:27→22:16)
[2017-05-06] MEDS: PHENYTOIN 50 MG CHEW PO SCH ×2 (08:27→22:16)
[2017-05-06] MEDS: CLONAZEPAM 0.5 MG TAB PO SCH ×2 (08:29→22:14)
[2017-05-06] MEDS: BISACODYL 5 MG TABEC PO SCH (08:29)
[2017-05-06] MEDS: POLYETHYLENE (MIRALAX) 17 GM PACK PO SCH ×2 (08:30→22:17)
[2017-05-06] MEDS: ETHOSUXIMIDE PO SCH ×2 (08:32→22:17)
[2017-05-06] MEDS: DOCUSATE SODIUM/SENNA 50/8.6MG TAB PO SCH ×2 (08:33→22:15)
--- NOTE | 2017-05-06 12:27 | Progress Note ---
Subjective Date of Service: May 06, 2017. Subjective Pt evaluation today including: conversation w/ patient, physical exam, lab review, review of studies, review of inpatient medication list Saw/examined the patient in room 212 Sister at bedside States he's doing okay, still slightly on the lethargic side Currently eating; no respiratory distress Problem List Medical Problems: (1) Altered mental status Status: Acute (2) Facial droop Status: Acute (3) Fever Status: Acute (4) Hydronephrosis of right kidney Status: Acute (5) Pulmonary embolism Status: Acute (6) UTI (urinary tract infection) Status: Acute Medications Current Inpatient Medications Medications (Trade) Dose Ordered Sig/Jose A Route Start Time Stop Time Status Last Admin Dose Admin Ioversol (Optiray 320) 100 ml UD PRN IV 05/05/17 14:15 05/09/17 14:14 Albuterol Sulfate (Ventolin 0.083% 2.5MG/3ML Neb) 2.5 mg TIDR INH 05/05/17 21:00 06/04/17 20:59 05/06/17 07:18 2.5 MG Bisacodyl (Dulcolax Tab) 5 mg DAILY PO 05/06/17 09:00 06/05/17 08:59 05/06/17 08:29 5 MG Citalopram Hydrobromide (celeXA TAB) 40 mg DAILY PO 05/06/17 09:00 06/05/17 08:59 05/06/17 08:25 40 MG Clonazepam (Klonopin Tab) 0.5 mg BID PO 05/05/17 21:00 06/04/17 20:59 05/06/17 08:29 0.5 MG Lorazepam (Ativan Tab) 0.5 mg BID PO 05/05/17 21:00 06/04/17 20:59 05/06/17 08:24 0.5 MG Oxycodone HCl (Roxicodone Immediate Rel Tab) 5 mg Q4H PRN PO 05/05/17 18:30 05/19/17 18:29 Phenobarbital (Phenobarbital Tab) 16.2 mg 5XDQ3H PO 05/05/17 21:00 06/04/17 20:59 05/06/17 07:14 16.2 MG Phenytoin (Dilantin Chew) 150 mg QAM PO 05/06/17 09:00 06/05/17 08:59 05/06/17 08:27 150 MG Phenytoin (Dilantin Chew) 150 mg QPM PO 05/05/17 21:00 06/04/17 20:59 05/05/17 21:36 150 MG Senna/Docusate Sodium (Senokot S Tab) 2 tab BID PO 05/05/17 21:00 06/04/17 20:59 05/06/17 08:33 2 TAB Acetazolamide (Diamox Tab) 125 mg BID PO 05/05/17 21:00 06/04/17 20:59 05/06/17 08:27 125 MG Polyethylene (Miralax Powder Packet) 17 gm BID PO 05/05/17 21:00 06/04/17 20:59 05/06/17 08:30 17 GM Heparin Sodium/ Dextrose 500 ml @ 20 mls/hr Q24H PRN IV 05/05/17 19:00 06/04/17 18:59 Levalbuterol (Xopenex 0.63 Mg/ 3 Ml Neb) 0.63 mg Q6R PRN INH 05/05/17 19:15 06/04/17 19:14 Promethazine HCl (Phenergan Supp) 25 mg Q6H PRN [place] 05/05/17 20:30 06/04/17 18:29 Non-Formulary Medication (Non-Formulary Patient'S Own Med) 1 ea BID PO 05/05/17 22:30 06/04/17 22:29 05/06/17 08:32 1 EA Oxycodone HCl (Roxicodone Immediate Rel Tab) 5 mg Q8 PO 05/06/17 14:00 05/20/17 13:59 Objective Vital Signs Date Time Temp Pulse Resp B/P (MAP) Pulse Ox O2 Delivery O2 Flow Rate FiO2 05/06/17 11:44 98 Room Air 05/06/17 11:37 37.1 76 18 132/77 (95) 94 Nasal Cannula 2.0 05/06/17 07:19 36.6 68 20 107/69 (82) 100 Nasal Cannula 3.0 05/06/17 07:19 72 16 100 Room Air 05/06/17 04:45 37.1 74 18 125/78 (94) 100 Nasal Cannula 3.0 05/06/17 04:00 100 Nasal Cannula 3.0 05/05/17 23:59 95 Nasal Cannula 2.0 05/05/17 22:55 36.8 83 18 145/90 (108) 94 Nasal Cannula 2.0 05/05/17 20:32 88 14 93 Room Air 05/05/17 19:07 86 20 193/85 96 05/05/17 19:06 37.0 86 20 193/62 100 Room Air 05/05/17 19:00 Nasal Cannula 2.0 05/05/17 16:49 Room Air 05/05/17 16:02 85 135/87 100 Room Air 05/05/17 12:59 37.0 81 20 149/94 90 Room Air Physical Exam General Appearance: no apparent distress, + obese, + pertinent finding (MR, verbal and answers yes/no questions) Respiratory/Chest: lungs clear, normal breath sounds, no respiratory distress, no accessory muscle use Cardiovascular: regular rate, rhythm, no edema, no murmur Abdomen: normal bowel sounds, non tender, soft, + pertinent finding (+colostomy , some pain around the ostomy site, hernia noted) Laboratory Results Last 24 Hours Test 05/05/17 13:20 05/05/17 13:45 05/06/17 03:28 05/06/17 11:10 White Blood Count 8.10 K/uL 9.20 K/uL Red Blood Count 5.08 M/uL 5.02 M/uL Hemoglobin 15.3 g/dL 15.3 g/dL Hematocrit 48.4 % 47.8 % Mean Corpuscular Volume 95.3 fL 95.2 fL Mean Corpuscular Hemoglobin 30.1 pg 30.5 pg Mean Corpuscular Hemoglobin Concent 31.6 g/dl 32.0 g/dl Platelet Count 265 K/uL 237 K/uL Mean Platelet Volume 11.1 fL 11.1 fL Neutrophils (%) (Auto) 61.9 % Lymphocytes (%) (Auto) 21.2 % Monocytes (%) (Auto) 10.7 % Eosinophils (%) (Auto) 5.6 % Basophils (%) (Auto) 0.5 % Neutrophils # (Auto) 5.01 K/uL Lymphocytes # (Auto) 1.72 K/uL Monocytes # (Auto) 0.87 K/uL Eosinophils # (Auto) 0.45 K/uL Basophils # (Auto) 0.04 K/uL RDW Standard Deviation 49.8 fL 50.0 fL RDW Coefficient of Variation 14.0 % 14.3 % Immature Granulocyte % (Auto) 0.1 % Immature Granulocyte # (Auto) 0.01 K/uL Sodium Level 142 mmol/L 143 mmol/L Potassium Level 4.0 mmol/L 3.5 mmol/L Chloride Level 111 mmol/L 109 mmol/L Carbon Dioxide Level 27 mmol/L 29 mmol/L Anion Gap 4.0 mmol/L 5.0 mmol/L Blood Urea Nitrogen 9 mg/dl 8 mg/dl Creatinine 0.56 mg/dl 0.57 mg/dl Est Creatinine Clear Calc Drug Dose 141.3 ml/min 138.9 ml/min Estimated GFR () 137.8 136.8 Estimated GFR (Non- 118.9 118.1 BUN/Creatinine Ratio 15.4 13.9 Random Glucose 94 mg/dl 97 mg/dl Calcium Level 9.4 mg/dl 9.2 mg/dl Total Bilirubin 0.2 mg/dl Direct Bilirubin 0.1 mg/dl Aspartate Amino Transf (AST/SGOT) 15 U/L Alanine Aminotransferase (ALT/SGPT) 26 U/L Alkaline Phosphatase 139 U/L Total Protein 8.2 gm/dl Albumin 3.3 gm/dl Lipase 135 U/L Phenytoin (Dilantin) Level 15.0 mcg/mL Phenobarbital Level 15.4 mcg/mL Venous Blood pH 7.38 Venous Blood Partial Pressure CO2 45 mmHg Venous Blood Partial Pressure O2 49 mmHg Venous Blood HCO3 26 mmol/L Venous Blood Oxygen Saturation 84.6 % Venous Blood Base Excess 0.7 mEq/L Prothrombin Time 11.6 SECONDS Prothromb Time International Ratio 1.1 Activated Partial Thromboplast Time 91.0 SECONDS 53.0 SECONDS Partial Thromboplastin Ratio 3.5 2.0 Magnesium Level 2.2 mg/dl Assessment and Plan This is a pleasant 52 year old male with mental retardation who presents with hx. of hydrocephalus s/p ventriculoperitoneal shunt at childhood, hx. of seizures, controlled with meds with no seizures for ~ 30 years, hx. of colostomy secondary to obstruction, recent admission to [place] with nephrolithiasis and Campylobacter enteritis sent from group home due to hypoxia and VBG showing CO2 retention - found to have foreign body in pulmonary artery. Foreign Body in Pulmonary Artery 9/14 IV heparin for now will transition to Xarelto later today and then we will do 15mg BID x21 days 20mg daily after that for a total of 6 months or so 05/05 appreciate vascular input at this point we will start IV heparin transition to NOAC as per mother Xarelto is an option that family is agreeable to vascular surgery consulted O2 as needed nebs as needed Pulmonary Nodule 6mm nodule noted; repeat chest CT in 6 months Seizure Disorder continue current medications Phenytoin + Phenobarbital levels were checked and therapeutic continue Acetazolamide and Ethosuximide as well no seizures ~ 30 years Constipation continue current medications has a colostomy due to previous obstruction, stool usually drains in colostomy DVT ppx IV heparin FULL CODE
[2017-05-06] MEDS: SODIUM CHLORIDE 0.9% 1000ML 1,000 ML IV SCH (14:41)
[2017-05-06] MEDS ORDERED: ~HEPARIN DRIP~STOP ORDER SCH (18:59)
[2017-05-06] MEDS: RIVAROXABAN TAB 15 MG TAB PO SCH (19:16)
[2017-05-07] VITALS (9 sets, daily range): BP systolic 109–150; BP diastolic 72–84; PULSE 78–99; TEMP 36.5–37.2; O2SAT 95–100
[2017-05-07] MEDS: SODIUM CHLORIDE 0.9% 1000ML 1,000 ML IV SCH ×2 (01:08→14:37)
[2017-05-07] MEDS: OXYCODONE HCL IR 5 MG TAB (IMMEDIATE RELEASE) PO SCH ×3 (06:00→20:22)
[2017-05-07 06:29] LABS: HEMATOCRIT 47.7 % (42-52); MEAN CELL VOLUME 94.8 fL (80-100); MEAN CORPUSCULAR HEMOGLOBIN 30.6 pg (25-34); MEAN CORPUSCULAR HGB CONC 32.3 g/dl (32-36); MEAN PLATELET VOLUME 11.2 fL (7.4-10.4); PLATELET COUNT 197 K/uL (130-400); RED BLOOD COUNT 5.03 M/uL (4.7-6.1); WHITE BLOOD COUNT 9.07 K/uL (4.8-10.8)
[2017-05-07 06:55] LABS: BUN/CREATININE RATIO 13.6 (10-20); CALCIUM 8.8 mg/dl (8.5-10.1); CREATININE 0.55 mg/dl (0.60-1.40); POTASSIUM 3.5 mmol/L (3.5-5.1)
[2017-05-07] MEDS: ALBUTEROL 0.083% NEBU SOLN 3 ML VIAL INH SCH ×3 (07:14→19:22)
[2017-05-07] MEDS: PHENOBARBITAL 32.4 MG TAB PO SCH ×5 (07:17→20:26)
[2017-05-07] MEDS: DOCUSATE SODIUM/SENNA 50/8.6MG TAB PO SCH ×2 (08:34→22:06)
[2017-05-07] MEDS: BISACODYL 5 MG TABEC PO SCH (08:34)
[2017-05-07] MEDS: RIVAROXABAN TAB 15 MG TAB PO SCH ×2 (08:35→22:09)
[2017-05-07] MEDS: CITALOPRAM 40 MG TAB PO SCH (08:35)
[2017-05-07] MEDS: POLYETHYLENE (MIRALAX) 17 GM PACK PO SCH ×2 (08:35→22:11)
[2017-05-07] MEDS: PHENYTOIN 50 MG CHEW PO SCH ×2 (08:35→22:08)
[2017-05-07] MEDS: ETHOSUXIMIDE PO SCH ×2 (08:36→21:00)
[2017-05-07] MEDS: AcetaZOLAMIDE 250 MG TAB PO SCH ×2 (10:31→22:10)
[2017-05-07] MEDS: CLONAZEPAM 0.5 MG TAB PO SCH ×2 (10:32→22:20)
[2017-05-07] MEDS: LORAZEPAM 0.5 MG TAB PO SCH ×2 (10:32→22:20)
[2017-05-07] MEDS ORDERED: MAGNESIUM HYDROXIDE SUSP 30 ML UDC PO ONE (13:00)
--- NOTE | 2017-05-07 13:59 | DIAGNOSTIC IMAGING REPORT ---
[facility] CLINICAL HISTORY: sob pain COMPARISON STUDY: January 22, 2015 FINDINGS: Moderate fecal impaction. Ostomy complex in the central abdomen. No significant small bowel distention. IMPRESSION: Fecal impaction. Nonobstructive bowel pattern. The above report was generated using voice recognition software. It may contain grammatical, syntax or spelling errors. Electronically signed by: Grant Napoles M.D. 05/07/2017 1:58 PM Dictated Date/Time: 05/07/2017 1:57 PM
--- NOTE | 2017-05-07 14:31 | Progress Note ---
Subjective Date of Service: May 07, 2017. Subjective Pt evaluation today including: conversation w/ patient, conversation w/ family , physical exam, lab review, review of studies, review of inpatient medication list Saw/examined the patient in room 212 patient is lethargic today sister is in the room with him; tells me that he is not himself he is c/o abdominal pain has a hx. of fecal retention No shortness of breath or distress noted Problem List Medical Problems: (1) Altered mental status Status: Acute (2) Facial droop Status: Acute (3) Fever Status: Acute (4) Hydronephrosis of right kidney Status: Acute (5) Pulmonary embolism Status: Acute (6) UTI (urinary tract infection) Status: Acute Medications Current Inpatient Medications Medications (Trade) Dose Ordered Sig/Jose A Route Start Time Stop Time Status Last Admin Dose Admin Ioversol (Optiray 320) 100 ml UD PRN IV 05/05/17 14:15 05/09/17 14:14 Albuterol Sulfate (Ventolin 0.083% 2.5MG/3ML Neb) 2.5 mg TIDR INH 05/05/17 21:00 06/04/17 20:59 05/07/17 14:24 2.5 MG Bisacodyl (Dulcolax Tab) 5 mg DAILY PO 05/06/17 09:00 06/05/17 08:59 05/07/17 08:34 5 MG Citalopram Hydrobromide (celeXA TAB) 40 mg DAILY PO 05/06/17 09:00 06/05/17 08:59 05/07/17 08:35 40 MG Clonazepam (Klonopin Tab) 0.5 mg BID PO 05/05/17 21:00 06/04/17 20:59 05/07/17 10:32 0.5 MG Lorazepam (Ativan Tab) 0.5 mg BID PO 05/05/17 21:00 06/04/17 20:59 05/07/17 10:32 0.5 MG Oxycodone HCl (Roxicodone Immediate Rel Tab) 5 mg Q4H PRN PO 05/05/17 18:30 05/19/17 18:29 Phenobarbital (Phenobarbital Tab) 16.2 mg 5XDQ3H PO 05/05/17 21:00 06/04/17 20:59 05/07/17 10:32 16.2 MG Phenytoin (Dilantin Chew) 150 mg QAM PO 05/06/17 09:00 06/05/17 08:59 05/07/17 08:35 150 MG Phenytoin (Dilantin Chew) 150 mg QPM PO 05/05/17 21:00 06/04/17 20:59 05/06/17 22:16 150 MG Senna/Docusate Sodium (Senokot S Tab) 2 tab BID PO 05/05/17 21:00 06/04/17 20:59 05/07/17 08:34 2 TAB Acetazolamide (Diamox Tab) 125 mg BID PO 05/05/17 21:00 06/04/17 20:59 05/07/17 10:31 125 MG Polyethylene (Miralax Powder Packet) 17 gm BID PO 05/05/17 21:00 06/04/17 20:59 05/07/17 08:35 17 GM Levalbuterol (Xopenex 0.63 Mg/ 3 Ml Neb) 0.63 mg Q6R PRN INH 05/05/17 19:15 06/04/17 19:14 Promethazine HCl (Phenergan Supp) 25 mg Q6H PRN [place] 05/05/17 20:30 06/04/17 18:29 Non-Formulary Medication (Non-Formulary Patient'S Own Med) 1 ea BID PO 05/05/17 22:30 06/04/17 22:29 05/07/17 08:36 1 EA Oxycodone HCl (Roxicodone Immediate Rel Tab) 5 mg Q8 PO 05/06/17 14:00 05/20/17 13:59 05/06/17 22:15 5 MG Sodium Chloride 1,000 ml @ 80 mls/hr [id number] IV 05/06/17 12:30 06/05/17 12:29 05/07/17 01:08 80 MLS/HR Rivaroxaban (Xarelto Tab) 15 mg BID PO 05/06/17 19:00 06/05/17 18:59 05/07/17 08:35 15 MG Senna (Senokot Syrup) 8.8 mg QAM PO 05/07/17 13:30 06/06/17 13:29 Objective Vital Signs Date Time Temp Pulse Resp B/P (MAP) Pulse Ox O2 Delivery O2 Flow Rate FiO2 05/07/17 14:24 91 18 95 Nasal Cannula 2.0 05/07/17 12:28 37.2 91 20 118/84 (95) 98 3.0 05/07/17 12:00 Nasal Cannula 05/07/17 08:00 Nasal Cannula 05/07/17 07:12 86 18 97 Nasal Cannula 2.0 05/07/17 07:01 36.8 83 16 109/78 (88) 98 Nasal Cannula 3.5 05/07/17 04:00 Nasal Cannula 3.0 05/07/17 03:09 37.0 78 18 122/76 (91) 100 Nasal Cannula 3.5 05/06/17 23:59 Nasal Cannula 3.0 05/06/17 22:54 36.9 90 22 138/87 (104) 100 Nasal Cannula 3.5 05/06/17 20:00 Nasal Cannula 3.0 05/06/17 19:34 37.4 89 18 141/89 (106) 99 3.0 05/06/17 19:30 86 18 96 Nasal Cannula 2.0 05/06/17 16:06 92 Nasal Cannula 2.0 05/06/17 16:00 Nasal Cannula 2.0 05/06/17 15:47 36.9 81 16 129/96 (107) 98 Physical Exam General Appearance: no apparent distress, + pertinent finding (no respiratory distress; lethargic/tired) Respiratory/Chest: lungs clear, normal breath sounds, no respiratory distress, no accessory muscle use Cardiovascular: regular rate, rhythm, no edema, no murmur Extremities: normal inspection, no pedal edema Neurologic/Psychiatric: alert, + pertinent finding (+lethargic/tired) Laboratory Results Last 24 Hours Test 05/06/17 23:58 05/07/17 05:55 05/07/17 07:10 Bedside Glucose 89 mg/dl White Blood Count 9.07 K/uL Red Blood Count 5.03 M/uL Hemoglobin 15.4 g/dL Hematocrit 47.7 % Mean Corpuscular Volume 94.8 fL Mean Corpuscular Hemoglobin 30.6 pg Mean Corpuscular Hemoglobin Concent 32.3 g/dl RDW Standard Deviation 50.0 fL RDW Coefficient of Variation 14.3 % Platelet Count 197 K/uL Mean Platelet Volume 11.2 fL Sodium Level 144 mmol/L Potassium Level 3.5 mmol/L Chloride Level 111 mmol/L Carbon Dioxide Level 28 mmol/L Anion Gap 5.0 mmol/L Blood Urea Nitrogen 8 mg/dl Creatinine 0.55 mg/dl Est Creatinine Clear Calc Drug Dose 142.6 ml/min Estimated GFR () 138.9 Estimated GFR (Non- 119.8 BUN/Creatinine Ratio 13.6 Random Glucose 91 mg/dl Calcium Level 8.8 mg/dl Magnesium Level 2.0 mg/dl Activated Partial Thromboplast Time 24.7 SECONDS Partial Thromboplastin Ratio 1.0 Assessment and Plan This is a pleasant 52 year old male with mental retardation who presents with hx. of hydrocephalus s/p ventriculoperitoneal shunt at childhood, hx. of seizures, controlled with meds with no seizures for ~ 30 years, hx. of colostomy secondary to obstruction, recent admission to [place] with nephrolithiasis and Campylobacter enteritis [facility] and VBG showing CO2 retention - found to have foreign body in pulmonary artery. Foreign Body in Pulmonary Artery 05/07 currently on Xarelto 05/06 IV heparin for now will transition to Xarelto later today and then we will do 15mg BID x21 days 20mg daily after that for a total of 6 months or so 05/05 appreciate vascular input at this point we will start IV heparin transition to NOAC as per mother Xarelto is an option that family is agreeable to vascular surgery consulted O2 as needed nebs as needed Fecal Retention will give a dose of milk of magnesium will try senna syrup x1 continue docusate/senna Pulmonary Nodule 6mm nodule noted; repeat chest CT in 6 months Seizure Disorder continue current medications Phenytoin + Phenobarbital levels were checked and therapeutic continue Acetazolamide and Ethosuximide as well no seizures ~ 30 years Constipation continue current medications has a colostomy due to previous obstruction, stool usually drains in colostomy DVT ppx IV heparin FULL CODE
--- NOTE | 2017-05-07 14:42 | Medical Consult ---
Consultation Note Date of Service May 07, 2017. Consultation Note Consult Dictated #[id number]
--- NOTE | 2017-05-07 15:17 | CONSULTATION REPORT ---
DATE OF CONSULTATION: 05/07/2017 REASON FOR CONSULTATION: Foreign body in pulmonary artery. HISTORY OF PRESENT ILLNESS: This is a 52-year-old male with multiple medical problems. The patient has a history of hydrocephalus, status post post-ventriculoperitoneal shunt at childhood. The patient resides in a [facility] and was noted to lethargy and hypoxia that was noted by the staff. They also noted that the patient was not quite like himself. It should be noted that due to the patient's altered mental status and developmental problems, he could provide no meaningful history whatsoever. His sister who is his power of securities attorney was at bedside who did help provide some meaningful information. According to the sister, the patient is usually much more awake and alert and is just not acting like himself, so he was therefore sent to [facility]. In [facility], he has had CBCs where he has not exhibited any leukocytosis. Hemoglobin and hematocrit have all remained normal range as has his platelet count. The patient did have a VBG that did not show any evidence of hypercarbia or hypoxia. He had a chemistry profile that showed sodium, potassium and BUN were all within the normal range. Creatinine has also not been noted to be elevated. He has had a urinalysis that was negative for infection. The patient does take phenobarbital and Dilantin and toxicologies were taken for these and they have been within the therapeutic range. There was concern that the patient did have a facial droop and exhibited other stroke like symptoms, so he did have imaging including a CT scan of the head that showed no acute intracranial process. He did have a CT scan of his chest which did show the patient had a linear foreign body in the left main pulmonary artery. This was felt to represent an emboli segment of an old catheter. According to interpreting radiologist this was present on the films from 2015. 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 There was no evidence of pneumonia. The patient also was noted to have a 6 mm nodular density in the left lower lobe. Because of this finding, Dr. Felder of vascular surgery was consulted who felt that due to the longevity that this piece of catheter is located and pulmonary artery, he felt the risk of tearing the pulmonary artery, if the snare was used to grasp it was too high and he did suggest possibly asking thoracic surgery for anything else could be offered and therefore we are asked to see the patient. I visited with the patient at bedside. He did not appear to be in any distress. As noted above, the patient has developmental delays due to history of hydrocephalus and could not provide any meaningful history. PAST MEDICAL HISTORY: Includes: 1. Hydrocephalus. 2. History of seizures. 3. History of bowel obstruction. 4. History of seizure disorder. PAST SURGICAL HISTORY: Includes: 1. History of [employer] shunt. 2. History of colostomy. FAMILY HISTORY: No reported family history of hydrocephalus. SOCIAL HISTORY: The patient resides in a mcc. ALLERGIES: There are no known medication allergies. OUTPATIENT MEDICATIONS: Include: 1. Acetazolamide 125 mg twice daily. 2. Albuterol inhaler as needed. 3. Dulcolax as needed. 4. Celexa 40 mg daily. 5. Clindamycin 300 mg 3 times daily which was started on May 04. 6. Clonazepam 0.5 mg twice daily. 7. Ethosuximide 250 mg twice daily. 8. DuoNebs as needed. 9. Lorazepam 0.5 mg twice daily. 10. Oxycodone 5 mg every 8 hours. 11. Oxycodone 5 mg every 4 hours as needed. 12. Phenobarbital 16.2 mg 5 times a day. 13. Dilantin; he takes 150 mg in the evening and 150 mg in the morning. 14. MiraLax twice daily. 15. Phenergan as needed. 16. Senokot twice daily. REVIEW OF SYSTEMS: Unable to obtain full review of systems as per reason noted above. PHYSICAL EXAMINATION: VITAL SIGNS: He is afebrile, temperature 37.2, pulse 91 and regular, respirations are 18 and unlabored, pulse ox 95% on 2 liters, blood pressure 118/84. GENERAL: The patient is awake, not appear to be in any distress. HEENT: His head not appear to have any evidence of bruising or acute injuries. EYES: His pupils are equal, round and reactive to light and accommodation. Extraocular motions appeared intact. NOSE: There is no evidence of nasal trauma. MOUTH: Has moist mucous membranes. NECK: Supple. There is no JVD. CARDIOVASCULAR: Regular rate and rhythm. LUNGS: Revealed decreased breath sounds at the bases. No accessory muscle use. ABDOMEN: Rotund, soft. Colostomy in place. EXTREMITIES: Revealed no cyanosis or clubbing. NEUROLOGIC: Revealed patient could move all 4 extremities, but did not follow commands appropriately. DIAGNOSTIC DATA: As noted above. IMPRESSION: A 52-year-old male with apparent embolized catheter tip in his left main pulmonary artery. PLAN: I discussed with the patient's history with his power of securities attorney at bedside. As noted, Dr. Felder does not feel endovascular approach would be feasible as the risk of tearing the pulmonary artery is too high. Also, I did discuss with the patient's sister that the only way that this could be removed will be an open procedure which would likely require cardiopulmonary bypass and she is not interested at this time. Dr. Felder has recommended that they anticoagulate the patient and this has already been undertaken. Dr. Moscoso is out of town. I have explained that to the family as well. He will review this case tomorrow to see if any other recommendations will be made. For now, nothing new will be recommended.
[2017-05-07] MEDS: SENNA 8.8 MG/5 ML UDP PO SCH (16:50)
[2017-05-08] VITALS (12 sets, daily range): BP systolic 105–139; BP diastolic 70–101; PULSE 80–100; TEMP 36.5–37.4; O2SAT 90–98
[2017-05-08] MEDS: SODIUM CHLORIDE 0.9% 1000ML 1,000 ML IV SCH ×2 (02:07→13:45)
[2017-05-08] MEDS: OXYCODONE HCL IR 5 MG TAB (IMMEDIATE RELEASE) PO SCH ×3 (06:33→21:30)
[2017-05-08 06:36] LABS: MEAN CELL VOLUME 97.5 fL (80-100); MEAN CORPUSCULAR HEMOGLOBIN 30.7 pg (25-34); MEAN CORPUSCULAR HGB CONC 31.5 g/dl (32-36); MEAN PLATELET VOLUME 11.8 fL (7.4-10.4); PLATELET COUNT 205 K/uL (130-400); RED BLOOD COUNT 4.72 M/uL (4.7-6.1); WHITE BLOOD COUNT 14.26 K/uL (4.8-10.8)
[2017-05-08 06:47] LABS: PARTIAL THROMBOPLASTIN RATIO 1.3
[2017-05-08] MEDS: ALBUTEROL 0.083% NEBU SOLN 3 ML VIAL INH SCH ×3 (07:17→18:48)
[2017-05-08 07:18] LABS: BUN/CREATININE RATIO 6.9 (10-20); CALCIUM 8.9 mg/dl (8.5-10.1); CREATININE 0.49 mg/dl (0.60-1.40)
[2017-05-08] MEDS: PHENOBARBITAL 32.4 MG TAB PO SCH ×5 (07:33→19:45)
[2017-05-08] MEDS: LORAZEPAM 0.5 MG TAB PO SCH ×2 (07:33→19:54)
[2017-05-08] MEDS: CLONAZEPAM 0.5 MG TAB PO SCH ×2 (07:33→19:54)
[2017-05-08] MEDS: POLYETHYLENE (MIRALAX) 17 GM PACK PO SCH ×2 (07:34→19:49)
[2017-05-08] MEDS: RIVAROXABAN TAB 15 MG TAB PO SCH ×2 (07:34→19:52)
[2017-05-08] MEDS: AcetaZOLAMIDE 250 MG TAB PO SCH ×2 (07:34→19:48)
[2017-05-08] MEDS: SENNA 8.8 MG/5 ML UDP PO SCH (07:34)
[2017-05-08] MEDS: CITALOPRAM 40 MG TAB PO SCH (07:35)
[2017-05-08] MEDS: PHENYTOIN 50 MG CHEW PO SCH ×2 (07:35→21:30)
[2017-05-08] MEDS: BISACODYL 5 MG TABEC PO SCH (07:35)
[2017-05-08] MEDS: ETHOSUXIMIDE PO SCH ×2 (07:42→19:51)
[2017-05-08] MEDS: DOCUSATE SODIUM/SENNA 50/8.6MG TAB PO SCH ×2 (07:42→19:56)
--- NOTE | 2017-05-08 08:28 | DIAGNOSTIC IMAGING REPORT ---
CHEST ONE VIEW PORTABLE CLINICAL HISTORY: Shortness of breath. Possible pneumonia. COMPARISON STUDY: 05/05/2017. FINDINGS: The study is limited from a technical standpoint secondary to the patient's large body habitus. A ventriculoperitoneal shunt is visualized. There is a catheter fragment within the left pulmonary artery. There is no focal pulmonary consolidation. There is mild central vascular prominence which may be accentuated by the patient's body habitus and suboptimal inspiration.[ IMPRESSION: 1. Catheter fragment within the left pulmonary artery, similar to the preceding study 2. No evidence of focal pulmonary consolidation 3. Vascular and interstitial prominence, a finding which may be accentuated by the patient's body habitus and suboptimal inspiration Electronically signed by: Tuan Bruce M.D. 05/08/2017 8:27 AM Dictated Date/Time: 05/08/2017 8:25 AM
[2017-05-08 09:31] LABS: URINE APPEARANCE CLEAR (CLEAR); URINE BILIRUBIN NEG (NEG); URINE COLOR YELLOW; URINE NITRITE NEG (NEG); URINE SPECIFIC GRAVITY 1.013 (1.000-1.030); UROBILINOGEN NEG (NEG); ZZURINE CULT IF INDIC CATH NO
[2017-05-08 09:44] LABS: MANUAL MICROSCOPIC REQUIRED? NO; REVIEW REQ? NO
--- NOTE | 2017-05-08 09:48 | SURGERY PROGRESS NOTE ---
DATE: 05/08/2017 DATE: 05/08/2017 Mr. Comer is a 52-year-old obese male with multiple problems including hydrocephalus as a child. I have been asked to see this patient because he has a catheter in his distal left main pulmonary artery going down into the lower lobe branches. This has been there at least 2 years. It probably has chronic thrombosis around it or fibrinous debris around it. No acute pulmonary emboli were noted. We were asked to see him as a second opinion to see whether we thought something should be done with this. I reviewed his films carefully and examined the patient. He really was not answering questions for me this morning. He has been worked up from a neurologic standpoint. I agree with Dr. Felder. I do not believe that this catheter should be addressed. In fact, I think a discussion about whether we should put him on anticoagulation should also be at least brought up. This has been present for the last 2 years. I do not believe that chronic anticoagulation in this patient is frankly worth the risk. In addition, I do not believe that this is going to be removed with an endovascular technique.
[2017-05-08] MEDS: CEFTRIAXONE SOD INJ 1 GM in DEXTROSE 5% ADD-VANTAGE 50ML 50 ML IV SCH (13:40)
--- NOTE | 2017-05-08 14:44 | Progress Note ---
Subjective Date of Service: May 08, 2017. Subjective Pt evaluation today including: conversation w/ patient, physical exam, lab review, review of studies, review of inpatient medication list Saw/examined the patient in room 212 He is more lethargic than yesterday +tired, weak Some abdominal tenderness Problem List Medical Problems: (1) Altered mental status Status: Acute (2) Facial droop Status: Acute (3) Fever Status: Acute (4) Hydronephrosis of right kidney Status: Acute (5) Pulmonary embolism Status: Acute (6) UTI (urinary tract infection) Status: Acute Medications Current Inpatient Medications Medications (Trade) Dose Ordered Sig/Jose A Route Start Time Stop Time Status Last Admin Dose Admin Ioversol (Optiray 320) 100 ml UD PRN IV 05/05/17 14:15 05/09/17 14:14 Albuterol Sulfate (Ventolin 0.083% 2.5MG/3ML Neb) 2.5 mg TIDR INH 05/05/17 21:00 06/04/17 20:59 05/08/17 14:22 2.5 MG Bisacodyl (Dulcolax Tab) 5 mg DAILY PO 05/06/17 09:00 06/05/17 08:59 05/08/17 07:35 5 MG Citalopram Hydrobromide (celeXA TAB) 40 mg DAILY PO 05/06/17 09:00 06/05/17 08:59 05/08/17 07:35 40 MG Clonazepam (Klonopin Tab) 0.5 mg BID PO 05/05/17 21:00 06/04/17 20:59 05/08/17 07:33 0.5 MG Lorazepam (Ativan Tab) 0.5 mg BID PO 05/05/17 21:00 06/04/17 20:59 05/08/17 07:33 0.5 MG Oxycodone HCl (Roxicodone Immediate Rel Tab) 5 mg Q4H PRN PO 05/05/17 18:30 05/19/17 18:29 Phenobarbital (Phenobarbital Tab) 16.2 mg 5XDQ3H PO 05/05/17 21:00 06/04/17 20:59 05/08/17 13:41 16.2 MG Phenytoin (Dilantin Chew) 150 mg QAM PO 05/06/17 09:00 06/05/17 08:59 05/08/17 07:35 150 MG Phenytoin (Dilantin Chew) 150 mg QPM PO 05/05/17 21:00 06/04/17 20:59 05/07/17 22:08 150 MG Senna/Docusate Sodium (Senokot S Tab) 2 tab BID PO 05/05/17 21:00 06/04/17 20:59 05/08/17 07:42 2 TAB Acetazolamide (Diamox Tab) 125 mg BID PO 05/05/17 21:00 06/04/17 20:59 05/08/17 07:34 125 MG Polyethylene (Miralax Powder Packet) 17 gm BID PO 05/05/17 21:00 06/04/17 20:59 05/08/17 07:34 17 GM Levalbuterol (Xopenex 0.63 Mg/ 3 Ml Neb) 0.63 mg Q6R PRN INH 05/05/17 19:15 06/04/17 19:14 Promethazine HCl (Phenergan Supp) 25 mg Q6H PRN [place] 05/05/17 20:30 06/04/17 18:29 Oxycodone HCl (Roxicodone Immediate Rel Tab) 5 mg Q8 PO 05/06/17 14:00 05/20/17 13:59 05/08/17 13:41 5 MG Sodium Chloride 1,000 ml @ 80 mls/hr [id number] IV 05/06/17 12:30 06/05/17 12:29 05/08/17 13:45 80 MLS/HR Rivaroxaban (Xarelto Tab) 15 mg BID PO 05/06/17 19:00 06/05/17 18:59 05/08/17 07:34 15 MG Senna (Senokot Syrup) 8.8 mg QAM PO 05/07/17 13:30 06/06/17 13:29 05/08/17 07:34 8.8 MG Non-Formulary Medication (Non-Formulary Patient'S Own Med) 1 ea BID PO 05/07/17 21:00 06/04/17 22:29 05/08/17 07:42 1 EA Ceftriaxone Sodium 1 gm/ Dextrose 50 ml @ 100 mls/hr Q24H IV 05/08/17 14:00 9/18/17 12:29 05/08/17 13:40 100 MLS/HR Objective Vital Signs Date Time Temp Pulse Resp B/P (MAP) Pulse Ox O2 Delivery O2 Flow Rate FiO2 05/08/17 14:23 92 15 92 Nasal Cannula 3.0 05/08/17 12:41 37.0 98 18 126/79 (95) 98 Nasal Cannula 05/08/17 12:00 Nasal Cannula 05/08/17 08:28 36.9 92 18 105/92 (96) 98 Nasal Cannula 2.0 05/08/17 08:00 Nasal Cannula 05/08/17 07:20 90 16 97 Nasal Cannula 2.0 05/08/17 04:00 36.5 82 20 139/101 (114) 96 Nasal Cannula 2.0 05/08/17 04:00 Nasal Cannula 05/08/17 00:00 36.5 80 22 128/72 (90) 97 Nasal Cannula 2.0 05/07/17 23:59 36.7 84 14 128/72 (90) 96 Room Air 05/07/17 23:59 Nasal Cannula 05/07/17 20:00 Nasal Cannula 05/07/17 19:32 36.9 99 16 150/72 (98) 100 Nasal Cannula 2.0 05/07/17 19:22 88 18 95 Nasal Cannula 2.0 05/07/17 16:00 Nasal Cannula 05/07/17 15:27 36.5 86 20 110/72 (85) 98 Nasal Cannula 2.0 Physical Exam General Appearance: + pertinent finding (+lethargic, tired/weak) Respiratory/Chest: no respiratory distress, no accessory muscle use, + decreased breath sounds Cardiovascular: regular rate, rhythm, no edema, no murmur Abdomen: + pertinent finding (+colostomy, surrounding hernia) Extremities: normal inspection, no pedal edema Laboratory Results Last 24 Hours Test 05/08/17 05:52 05/08/17 09:22 White Blood Count 14.26 K/uL Red Blood Count 4.72 M/uL Hemoglobin 14.5 g/dL Hematocrit 46.0 % Mean Corpuscular Volume 97.5 fL Mean Corpuscular Hemoglobin 30.7 pg Mean Corpuscular Hemoglobin Concent 31.5 g/dl RDW Standard Deviation 52.1 fL RDW Coefficient of Variation 14.6 % Platelet Count 205 K/uL Mean Platelet Volume 11.8 fL Activated Partial Thromboplast Time 33.1 SECONDS Partial Thromboplastin Ratio 1.3 Sodium Level 144 mmol/L Potassium Level 4.0 mmol/L Chloride Level 111 mmol/L Carbon Dioxide Level 27 mmol/L Anion Gap 6.0 mmol/L Blood Urea Nitrogen 3 mg/dl Creatinine 0.49 mg/dl Est Creatinine Clear Calc Drug Dose 159.8 ml/min Estimated GFR () 145.6 Estimated GFR (Non- 125.6 BUN/Creatinine Ratio 6.9 Random Glucose 85 mg/dl Calcium Level 8.9 mg/dl Chemistry Specimen Hemolysis Urine Color YELLOW Urine Appearance CLEAR Urine pH 7.0 Urine Specific [place] 1.013 Urine Protein NEG Urine Glucose (UA) NEG Urine Ketones NEG Urine Occult Blood NEG Urine Nitrite NEG Urine Bilirubin NEG Urine Urobilinogen NEG Urine Leukocyte Esterase NEG Assessment and Plan This is a pleasant 52 year old male with mental retardation who presents with hx. of hydrocephalus s/p ventriculoperitoneal shunt at childhood, hx. 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 Foreign Body in Pulmonary Artery 05/08 continue Xarelto appreciate cardiothoracic surgery and vascular surgery input 05/07 currently on Xarelto 05/06 IV heparin for now will transition to Xarelto later today and then we will do 15mg BID x21 days 20mg daily after that for a total of 6 months or so 05/05 appreciate vascular input at this point we will start IV heparin transition to NOAC as per mother Xarelto is an option that family is agreeable to vascular surgery consulted O2 as needed nebs as needed Leukocytosis unsure of why there is a rise in his white blood cell count UA is checked again and no findings CXR shows some interstitial prominence either way, he is lethargic/weak today will start Rocephin empirically - possible URI/bronchitis picture Fecal Retention will give a dose of milk of magnesium will try senna syrup x1 continue docusate/senna Pulmonary Nodule 6mm nodule noted; repeat chest CT in 6 months Seizure Disorder continue current medications Phenytoin + Phenobarbital levels were checked and therapeutic continue Acetazolamide and Ethosuximide as well no seizures ~ 30 years Constipation continue current medications has a colostomy due to previous obstruction, stool usually drains in colostomy DVT ppx IV heparin FULL CODE
[2017-05-09] MEDS: OXYCODONE HCL IR 5 MG TAB (IMMEDIATE RELEASE) PO SCH ×3 (06:30→21:57)
[2017-05-09] MEDS: PHENOBARBITAL 32.4 MG TAB PO SCH ×5 (06:31→19:55)
[2017-05-09 06:53] VITALS: PULSE 90; O2SAT 95
[2017-05-09] MEDS: ALBUTEROL 0.083% NEBU SOLN 3 ML VIAL INH SCH ×3 (06:53→19:09)
[2017-05-09 06:59] VITALS: BP 120/80; PULSE 96; TEMP 36.7; O2SAT 93
[2017-05-09] MEDS: ETHOSUXIMIDE PO SCH ×2 (08:00→19:58)
[2017-05-09 08:27] LABS: HEMATOCRIT 43.2 % (42-52); MEAN CELL VOLUME 93.5 fL (80-100); MEAN CORPUSCULAR HEMOGLOBIN 30.7 pg (25-34); MEAN CORPUSCULAR HGB CONC 32.9 g/dl (32-36); MEAN PLATELET VOLUME 11.1 fL (7.4-10.4); PLATELET COUNT 194 K/uL (130-400); RED BLOOD COUNT 4.62 M/uL (4.7-6.1)
[2017-05-09 08:35] LABS: PARTIAL THROMBOPLASTIN RATIO 1.1
[2017-05-09] MEDS: CITALOPRAM 40 MG TAB PO SCH (08:42)
[2017-05-09] MEDS: AcetaZOLAMIDE 250 MG TAB PO SCH ×2 (08:42→19:55)
[2017-05-09] MEDS: RIVAROXABAN TAB 15 MG TAB PO SCH ×2 (08:42→19:56)
[2017-05-09] MEDS: PHENYTOIN 50 MG CHEW PO SCH ×2 (08:43→19:57)
[2017-05-09] MEDS: BISACODYL 5 MG TABEC PO SCH (08:43)
[2017-05-09] MEDS: SENNA 8.8 MG/5 ML UDP PO SCH (08:44)
[2017-05-09] MEDS: DOCUSATE SODIUM/SENNA 50/8.6MG TAB PO SCH ×2 (08:44→19:56)
[2017-05-09] MEDS: POLYETHYLENE (MIRALAX) 17 GM PACK PO SCH ×2 (08:44→19:55)
[2017-05-09 09:01] LABS: BUN/CREATININE RATIO 11.5 (10-20); CALCIUM 9.2 mg/dl (8.5-10.1); CREATININE 0.48 mg/dl (0.60-1.40); POTASSIUM 3.7 mmol/L (3.5-5.1)
[2017-05-09] MEDS: LORAZEPAM 0.5 MG TAB PO SCH ×2 (09:32→19:55)
[2017-05-09] MEDS: CLONAZEPAM 0.5 MG TAB PO SCH ×2 (09:32→20:00)
[2017-05-09] MEDS: CEFTRIAXONE SOD INJ 1 GM in DEXTROSE 5% ADD-VANTAGE 50ML 50 ML IV SCH (13:30)
[2017-05-09 14:04] VITALS: PULSE 88; O2SAT 93
[2017-05-09 14:51] VITALS: BP 110/76; PULSE 91; TEMP 36.8; O2SAT 96
--- NOTE | 2017-05-09 17:17 | Progress Note ---
Subjective Date of Service: May 09, 2017. Subjective Pt evaluation today including: conversation w/ patient, physical exam, lab review, review of studies, review of inpatient medication list Saw/examined the patient in room 460 +lethargic tries to hold in his cough Problem List Medical Problems: (1) Altered mental status Status: Acute (2) Facial droop Status: Acute (3) Fever Status: Acute (4) Hydronephrosis of right kidney Status: Acute (5) Pulmonary embolism Status: Acute (6) UTI (urinary tract infection) Status: Acute Medications Current Inpatient Medications Medications (Trade) Dose Ordered Sig/Jose A Route Start Time Stop Time Status Last Admin Dose Admin Albuterol Sulfate (Ventolin 0.083% 2.5MG/3ML Neb) 2.5 mg TIDR INH 05/05/17 21:00 06/04/17 20:59 05/09/17 14:04 2.5 MG Bisacodyl (Dulcolax Tab) 5 mg DAILY PO 05/06/17 09:00 06/05/17 08:59 05/09/17 08:43 5 MG Citalopram Hydrobromide (celeXA TAB) 40 mg DAILY PO 05/06/17 09:00 06/05/17 08:59 05/09/17 08:42 40 MG Clonazepam (Klonopin Tab) 0.5 mg BID PO 05/05/17 21:00 06/04/17 20:59 05/09/17 09:32 0.5 MG Lorazepam (Ativan Tab) 0.5 mg BID PO 05/05/17 21:00 06/04/17 20:59 05/09/17 09:32 0.5 MG Oxycodone HCl (Roxicodone Immediate Rel Tab) 5 mg Q4H PRN PO 05/05/17 18:30 05/19/17 18:29 Phenobarbital (Phenobarbital Tab) 16.2 mg 5XDQ3H PO 05/05/17 21:00 06/04/17 20:59 05/09/17 15:43 16.2 MG Phenytoin (Dilantin Chew) 150 mg QAM PO 05/06/17 09:00 06/05/17 08:59 05/09/17 08:43 150 MG Phenytoin (Dilantin Chew) 150 mg QPM PO 05/05/17 21:00 06/04/17 20:59 05/08/17 21:30 150 MG Senna/Docusate Sodium (Senokot S Tab) 2 tab BID PO 05/05/17 21:00 06/04/17 20:59 05/09/17 08:44 2 TAB Acetazolamide (Diamox Tab) 125 mg BID PO 05/05/17 21:00 06/04/17 20:59 05/09/17 08:42 125 MG Polyethylene (Miralax Powder Packet) 17 gm BID PO 05/05/17 21:00 06/04/17 20:59 05/09/17 08:44 17 GM Levalbuterol (Xopenex 0.63 Mg/ 3 Ml Neb) 0.63 mg Q6R PRN INH 05/05/17 19:15 06/04/17 19:14 Promethazine HCl (Phenergan Supp) 25 mg Q6H PRN [place] 05/05/17 20:30 06/04/17 18:29 Oxycodone HCl (Roxicodone Immediate Rel Tab) 5 mg Q8 PO 05/06/17 14:00 05/20/17 13:59 05/09/17 13:38 5 MG Rivaroxaban (Xarelto Tab) 15 mg BID PO 05/06/17 19:00 06/05/17 18:59 05/09/17 08:42 15 MG Senna (Senokot Syrup) 8.8 mg QAM PO 05/07/17 13:30 06/06/17 13:29 05/09/17 08:44 8.8 MG Non-Formulary Medication (Non-Formulary Patient'S Own Med) 1 ea BID PO 05/07/17 21:00 06/04/17 22:29 05/09/17 08:00 1 EA Ceftriaxone Sodium 1 gm/ Dextrose 50 ml @ 100 mls/hr Q24H IV 05/08/17 14:00 05/10/17 12:29 05/09/17 13:30 100 MLS/HR Objective Vital Signs Date Time Temp Pulse Resp B/P (MAP) Pulse Ox O2 Delivery O2 Flow Rate FiO2 05/09/17 14:51 36.8 91 20 110/76 (87) 96 Nasal Cannula 2.0 05/09/17 14:04 88 16 93 Nasal Cannula 2.0 05/09/17 08:03 Room Air 2.0 Nasal Cannula 05/09/17 06:59 36.7 96 20 120/80 (93) 93 2.0 05/09/17 06:53 90 16 95 Nasal Cannula 2.0 05/08/17 23:48 Nasal Cannula 2.0 05/08/17 23:38 37.1 100 20 132/84 (100) 90 2.0 05/08/17 18:49 88 16 94 Nasal Cannula 2.0 05/08/17 18:48 36.7 91 22 114/70 (85) 95 Nasal Cannula 2.0 05/08/17 18:15 96 Nasal Cannula 2.0 05/08/17 18:14 37.4 83 20 96 2.0 Physical Exam General Appearance: no apparent distress, + pertinent finding (tired, lethargic ) Neurologic/Psychiatric: alert, + pertinent finding (MR/cognitive dysfunction) Laboratory Results Last 24 Hours Test 05/09/17 08:07 White Blood Count 9.80 K/uL Red Blood Count 4.62 M/uL Hemoglobin 14.2 g/dL Hematocrit 43.2 % Mean Corpuscular Volume 93.5 fL Mean Corpuscular Hemoglobin 30.7 pg Mean Corpuscular Hemoglobin Concent 32.9 g/dl RDW Standard Deviation 48.9 fL RDW Coefficient of Variation 14.3 % Platelet Count 194 K/uL Mean Platelet Volume 11.1 fL Activated Partial Thromboplast Time 27.3 SECONDS Partial Thromboplastin Ratio 1.1 Sodium Level 142 mmol/L Potassium Level 3.7 mmol/L Chloride Level 111 mmol/L Carbon Dioxide Level 24 mmol/L Anion Gap 7.0 mmol/L Blood Urea Nitrogen 6 mg/dl Creatinine 0.48 mg/dl Est Creatinine Clear Calc Drug Dose 163.2 ml/min Estimated GFR () 146.9 Estimated GFR (Non- 126.7 BUN/Creatinine Ratio 11.5 Random Glucose 100 mg/dl Calcium Level 9.2 mg/dl Assessment and Plan This is a pleasant 52 year old male with mental retardation who presents with hx. of hydrocephalus s/p ventriculoperitoneal shunt at childhood, hx. 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 Foreign Body in Pulmonary Artery 05/09 cont. Xarelto 05/08 continue Xarelto appreciate cardiothoracic surgery and vascular surgery input 05/07 currently on Xarelto 05/06 IV heparin for now will transition to Xarelto later today and then we will do 15mg BID x21 days 20mg daily after that for a total of 6 months or so 05/05 appreciate vascular input at this point we will start IV heparin transition to NOAC as per mother Xarelto is an option that family is agreeable to vascular surgery consulted O2 as needed nebs as needed Leukocytosis - resolved 05/09 continue Rocephin today transition to oral medications in AM d/c likely in AM 05/08 unsure of why there is a rise in his white blood cell count UA is checked again and no findings CXR shows some interstitial prominence either way, he is lethargic/weak today will start Rocephin empirically - possible URI/bronchitis picture Fecal Retention will give a dose of milk of magnesium will try senna syrup x1 continue docusate/senna Pulmonary Nodule 6mm nodule noted; repeat chest CT in 6 months Seizure Disorder continue current medications Phenytoin + Phenobarbital levels were checked and therapeutic continue Acetazolamide and Ethosuximide as well no seizures ~ 30 years Constipation continue current medications has a colostomy due to previous obstruction, stool usually drains in colostomy DVT ppx IV heparin FULL CODE
[2017-05-09 19:09] VITALS: PULSE 90; O2SAT 94
[2017-05-10 00:11] VITALS: BP 110/77; PULSE 84; TEMP 36.9; O2SAT 94
[2017-05-10] MEDS: PHENOBARBITAL 32.4 MG TAB PO SCH ×3 (06:33→13:06)
[2017-05-10] MEDS: OXYCODONE HCL IR 5 MG TAB (IMMEDIATE RELEASE) PO SCH ×2 (06:34→13:07)
[2017-05-10 07:18] VITALS: BP 111/73; PULSE 92; TEMP 37; O2SAT 94
[2017-05-10 07:20] VITALS: PULSE 92; O2SAT 94
[2017-05-10] MEDS: ALBUTEROL 0.083% NEBU SOLN 3 ML VIAL INH SCH ×2 (07:20→14:14)
[2017-05-10 07:49] LABS: HEMATOCRIT 44.5 % (42-52); MEAN CELL VOLUME 93.5 fL (80-100); MEAN CORPUSCULAR HEMOGLOBIN 30.3 pg (25-34); MEAN CORPUSCULAR HGB CONC 32.4 g/dl (32-36); MEAN PLATELET VOLUME 11.7 fL (7.4-10.4); PLATELET COUNT 206 K/uL (130-400); RED BLOOD COUNT 4.76 M/uL (4.7-6.1); WHITE BLOOD COUNT 10.69 K/uL (4.8-10.8)
[2017-05-10] MEDS: RIVAROXABAN TAB 15 MG TAB PO SCH (07:50)
[2017-05-10] MEDS: CLONAZEPAM 0.5 MG TAB PO SCH (07:50)
[2017-05-10] MEDS: LORAZEPAM 0.5 MG TAB PO SCH (07:50)
[2017-05-10] MEDS: PHENYTOIN 50 MG CHEW PO SCH (07:50)
[2017-05-10] MEDS: POLYETHYLENE (MIRALAX) 17 GM PACK PO SCH (07:51)
[2017-05-10] MEDS: SENNA 8.8 MG/5 ML UDP PO SCH (07:51)
[2017-05-10] MEDS: CITALOPRAM 40 MG TAB PO SCH (07:51)
[2017-05-10] MEDS: AcetaZOLAMIDE 250 MG TAB PO SCH (07:51)
[2017-05-10] MEDS: ETHOSUXIMIDE PO SCH (07:51)
[2017-05-10] MEDS: DOCUSATE SODIUM/SENNA 50/8.6MG TAB PO SCH (07:51)
[2017-05-10 07:57] LABS: PARTIAL THROMBOPLASTIN RATIO 1.2
[2017-05-10] MEDS: BISACODYL 5 MG TABEC PO SCH (08:02)
[2017-05-10 14:14] VITALS: PULSE 93; O2SAT 94
--- NOTE | 2017-05-10 14:32 | Progress Note ---
Subjective Date of Service: May 10, 2017. Subjective Pt evaluation today including: conversation w/ patient, physical exam, lab review, review of studies, review of inpatient medication list Saw/examined the patient in room 460 He seems to be doing okay, close to baseline Does hold in his coughs and he does not like to cough, which he did a few times during my exam; as per sister, he has done this all his life Problem List Medical Problems: (1) Altered mental status Status: Acute (2) Facial droop Status: Acute (3) Fever Status: Acute (4) Hydronephrosis of right kidney Status: Acute (5) Pulmonary embolism Status: Acute (6) UTI (urinary tract infection) Status: Acute Review of Systems Difficult to assess due to patient's mental status Medications Current Inpatient Medications Medications (Trade) Dose Ordered Sig/Jose A Route Start Time Stop Time Status Last Admin Dose Admin Albuterol Sulfate (Ventolin 0.083% 2.5MG/3ML Neb) 2.5 mg TIDR INH 05/05/17 21:00 06/04/17 20:59 05/10/17 14:14 2.5 MG Bisacodyl (Dulcolax Tab) 5 mg DAILY PO 05/06/17 09:00 06/05/17 08:59 05/10/17 08:02 5 MG Citalopram Hydrobromide (celeXA TAB) 40 mg DAILY PO 05/06/17 09:00 06/05/17 08:59 05/10/17 07:51 40 MG Clonazepam (Klonopin Tab) 0.5 mg BID PO 05/05/17 21:00 06/04/17 20:59 05/10/17 07:50 0.5 MG Lorazepam (Ativan Tab) 0.5 mg BID PO 05/05/17 21:00 06/04/17 20:59 05/10/17 07:50 0.5 MG Oxycodone HCl (Roxicodone Immediate Rel Tab) 5 mg Q4H PRN PO 05/05/17 18:30 05/19/17 18:29 Phenobarbital (Phenobarbital Tab) 16.2 mg 5XDQ3H PO 05/05/17 21:00 06/04/17 20:59 05/10/17 13:06 16.2 MG Phenytoin (Dilantin Chew) 150 mg QAM PO 05/06/17 09:00 06/05/17 08:59 05/10/17 07:50 150 MG Phenytoin (Dilantin Chew) 150 mg QPM PO 05/05/17 21:00 06/04/17 20:59 05/09/17 19:57 150 MG Senna/Docusate Sodium (Senokot S Tab) 2 tab BID PO 05/05/17 21:00 06/04/17 20:59 05/10/17 07:51 2 TAB Acetazolamide (Diamox Tab) 125 mg BID PO 05/05/17 21:00 06/04/17 20:59 05/10/17 07:51 125 MG Polyethylene (Miralax Powder Packet) 17 gm BID PO 05/05/17 21:00 06/04/17 20:59 05/10/17 07:51 17 GM Levalbuterol (Xopenex 0.63 Mg/ 3 Ml Neb) 0.63 mg Q6R PRN INH 05/05/17 19:15 06/04/17 19:14 Promethazine HCl (Phenergan Supp) 25 mg Q6H PRN [place] 05/05/17 20:30 06/04/17 18:29 Oxycodone HCl (Roxicodone Immediate Rel Tab) 5 mg Q8 PO 05/06/17 14:00 05/20/17 13:59 05/10/17 13:07 5 MG Rivaroxaban (Xarelto Tab) 15 mg BID PO 05/06/17 19:00 06/05/17 18:59 05/10/17 07:50 15 MG Senna (Senokot Syrup) 8.8 mg QAM PO 05/07/17 13:30 06/06/17 13:29 05/10/17 07:51 8.8 MG Non-Formulary Medication (Non-Formulary Patient'S Own Med) 1 ea BID PO 05/07/17 21:00 06/04/17 22:29 05/10/17 07:51 1 EA Objective Vital Signs Date Time Temp Pulse Resp B/P (MAP) Pulse Ox O2 Delivery O2 Flow Rate FiO2 05/10/17 14:14 93 16 94 Nasal Cannula 2.0 05/10/17 08:00 Nasal Cannula 2.0 05/10/17 07:20 92 16 94 Nasal Cannula 2.0 05/10/17 07:18 37.0 92 16 111/73 (86) 94 Nasal Cannula 2.0 05/10/17 00:11 36.9 84 18 110/77 (88) 94 Nasal Cannula 2.0 05/09/17 23:48 Nasal Cannula 2.0 05/09/17 19:09 90 16 94 Nasal Cannula 2.0 05/09/17 16:00 Nasal Cannula 2.0 05/09/17 14:51 36.8 91 20 110/76 (87) 96 Nasal Cannula 2.0 Physical Exam General Appearance: no apparent distress Respiratory/Chest: no respiratory distress, no accessory muscle use, + decreased breath sounds Cardiovascular: regular rate, rhythm, no edema, no murmur Abdomen: + pertinent finding (+ostomy in place, hernia surrounding it, reducible) Laboratory Results Last 24 Hours Test 05/10/17 07:26 White Blood Count 10.69 K/uL Red Blood Count 4.76 M/uL Hemoglobin 14.4 g/dL Hematocrit 44.5 % Mean Corpuscular Volume 93.5 fL Mean Corpuscular Hemoglobin 30.3 pg Mean Corpuscular Hemoglobin Concent 32.4 g/dl RDW Standard Deviation 48.6 fL RDW Coefficient of Variation 14.3 % Platelet Count 206 K/uL Mean Platelet Volume 11.7 fL Activated Partial Thromboplast Time 31.0 SECONDS Partial Thromboplastin Ratio 1.2 Assessment and Plan This is a pleasant 52 year old male with mental retardation who presents with hx. of hydrocephalus s/p ventriculoperitoneal shunt at childhood, hx. 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 Foreign Body in Pulmonary Artery 05/10 plan to discharge on Xarelto for 3 months (15mg BID for the first 21 days, and then 20mg daily) 05/09 cont. Xarelto 05/08 continue Xarelto appreciate cardiothoracic surgery and vascular surgery input 05/07 currently on Xarelto 05/06 IV heparin for now will transition to Xarelto later today and then we will do 15mg BID x21 days 20mg daily after that for a total of 6 months or so 05/05 appreciate vascular input at this point we will start IV heparin transition to NOAC as per mother Xarelto is an option that family is agreeable to vascular surgery consulted O2 as needed nebs as needed Leukocytosis - resolved 05/10 will d/c on Augmentin 05/09 continue Rocephin today transition to oral medications in AM d/c likely in AM 05/08 unsure of why there is a rise in his white blood cell count UA is checked again and no findings CXR shows some interstitial prominence either way, he is lethargic/weak today will start Rocephin empirically - possible URI/bronchitis picture Fecal Retention will give a dose of milk of magnesium will try senna syrup x1 continue docusate/senna Pulmonary Nodule 6mm nodule noted; repeat chest CT in 6 months Seizure Disorder continue current medications Phenytoin + Phenobarbital levels were checked and therapeutic continue Acetazolamide and Ethosuximide as well no seizures ~ 30 years Constipation continue current medications has a colostomy due to previous obstruction, stool usually drains in colostomy DVT ppx IV heparin FULL CODE
[2017-05-10] MEDS ORDERED: XRL15 PO ×2 (14:34→14:49)
[2017-05-10] MEDS ORDERED: AMOX500T PO ×2 (14:34→14:49)
--- NOTE | 2017-05-10 14:36 | Discharge Instructions ---
Discharge Instructions Date of Service May 10, 2017. Admission Reason for Admission: Foreign Body In Lungs Discharge Discharge Diagnosis / Problem: Foreign Body in Pulmonary Artery; possible Aspiration Pneumonia Discharge Goals Goal(s): Decrease discomfort, Improve function, Diagnostic testing, Therapeutic intervention Activity Recommendations Activity Limitations: resume your previous activity . Instructions / Follow-Up Instructions / Follow-Up Patient is to take Xarelto 15mg twice a day for the next 17 days, and then switch to 20mg daily Patient will take Augmentin 500mg q8 for five more days Current Hospital Diet Patient's current hospital diet: Regular Diet Discharge Diet Recommended Diet: Regular Diet Diet Texture: Pureed (blended smooth) Liquid Consistency: [place] Th[place] Pending Studies Studies pending at discharge: no Medical Emergencies . Who to Call and When: Medical Emergencies: If at any time you feel your situation is an emergency, please call 911 immediately. . Non-Emergent Contact Non-Emergency issues call your: Primary Care Provider . . "Provider Documentation" section prepared by Juan José Sanchez. . VTE Core Measure Inpt VTE Proph given/why not?: Other Anticoagulation
[2017-05-10 14:38] VITALS: BP 111/73; PULSE 93; TEMP 37; O2SAT 94
--- NOTE | 2017-05-10 14:43 | Discharge Summary ---
Discharge Summary Date of Service May 10, 2017. 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 Aspiration Pneumonia Fecal Retention MR/Cognitive Dysfunction Medication Reconciliation New Medications: Amoxicillin & Pot Clavulanate (Augmentin 500MG) 1 Tab Tab 500 MG PO Q8H for 5 Days, #15 TAB Rivaroxaban (Xarelto) 15 Mg Tab 15 MG PO BID for 17 Days, #34 TAB switch to 20mg daily after this Continued Medications: Acetazolamide (Acetazolamide) 125 Mg Tab 125 MG PO BID Albuterol Sulf (Proventil 0.083% 2.5MG/3ML) 2.5 Mg/3 Ml Nebu 2.5 MG INH TID TREATMENT X2 DAYS STARTING 05/05/17 Bisacodyl (Bisacodyl) 5 Mg Tab 5 MG PO DAILY for Constipation, TAB Citalopram (Citalopram Hydrobromide) 40 Mg Tab 40 MG PO DAILY, TAB Clonazepam (Clonazepam) 0.5 Mg Tab 0.5 MG PO BID Ethosuximide (Zarontin) 250 Mg/5 Ml Kusum 250 MG PO BID Ipratropium-Albuterol (Duoneb) 3 Ml Nebu 1 TREATMENT INH Q6H PRN for Wheezing Lorazepam (Lorazepam) 0.5 Mg Tab 0.5 MG PO BID for Agitation Oxycodone HCl (Oxycodone HCl) 5 Mg Tab 5 MG PO Q8H Oxycodone Ir (Roxicodone Ir) 5 Mg Tab 5 MG PO Q4H PRN for Severe Pain, TAB Phenobarbital (Phenobarbital) 16.2 Mg Tab 16.2 MG PO 5XDAY Phenytoin (Phenytoin Infatabs) 50 Mg Chw 150 MG PO QPM THREE TABLET DOSE Phenytoin (Dilantin Chewable) 50 Mg Chw 150 MG PO QAM, CHW THREE TABLET DOSE Polyethylene Glycol 3350 (Miralax) 1 Pow Pow 17 GM PO BID Promethazine (Phenergan Suppository) 25 Mg Supp 25 MG MA Q6H PRN for Nausea Sennosides-Docusate Sodium (Senna-S) 1 Tab Tab 2 TAB PO BID for Constipation Discontinued Medications: Clindamycin Hcl (Cleocin) 300 Mg Cap 300 MG PO TID for 10 Days, CAP PT START 05/04/17 FOR 7 DAYS Admission Information HPI (per Admitting provider): This is a 52 year old male with a PMH of MR, hx. of hydrocephalus s/p ventriculoperitoneal shunt at childhood, hx. of seizures, hx. of colostomy - sent from residential due to patient being lethargic, hypoxic and VBG showing hypercapnia - patient was requiring O2 to maintain saturations. At the facility , they obtained a CXR and it was read to show a possible infiltrate, so clindamycin was started, but patient worsened, so he was sent here. 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 Currently, patient is laying in bed, seems to be comfortable, but patient's mother tells me that patient is more lethargic than usual. Physical Exam (per Admitting): General Appearance: no apparent distress, + obese, + pertinent finding (MR, answers yes or no to some questions) Head: + abnormal shape (chronic) ENT: hearing grossly normal, + pertinent finding (edentulous) Neck: supple Respiratory/Chest: lungs clear, normal breath sounds, no respiratory distress, no accessory muscle use Cardiovascular: regular rate, rhythm, no edema, no murmur Abdomen/GI: normal bowel sounds, non tender, soft, + hernia (umbilical), + pertinent finding (+colostomy) Extremities/Musculoskelatal: normal capillary refill, no pedal edema Neurologic/Psych: alert, normal mood/affect, + pertinent finding ( underlying mental retardation; hands are flexed chronically) Skin: normal color Lymphatic: no adenopathy Hospital Course This is a pleasant 52 year old male with mental retardation who presents with hx. of hydrocephalus s/p ventriculoperitoneal shunt at childhood, hx. 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 Foreign Body in Pulmonary Artery 05/10 plan to discharge on Xarelto for 3 months (15mg BID for the first 21 days, and then 20mg daily) 05/09 cont. Xarelto 05/08 continue Xarelto appreciate cardiothoracic surgery and vascular surgery input 05/07 currently on Xarelto 05/06 IV heparin for now will transition to Xarelto later today and then we will do 15mg BID x21 days 20mg daily after that for a total of 6 months or so 05/05 appreciate vascular input at this point we will start IV heparin transition to NOAC as per mother Xarelto is an option that family is agreeable to vascular surgery consulted O2 as needed nebs as needed Leukocytosis - resolved 05/10 will d/c on Augmentin 05/09 continue Rocephin today transition to oral medications in AM d/c likely in AM 05/08 unsure of why there is a rise in his white blood cell count UA is checked again and no findings CXR shows some interstitial prominence either way, he is lethargic/weak today will start Rocephin empirically - possible URI/bronchitis picture Fecal Retention will give a dose of milk of magnesium will try senna syrup x1 continue docusate/senna Pulmonary Nodule 6mm nodule noted; repeat chest CT in 6 months Seizure Disorder continue current medications Phenytoin + Phenobarbital levels were checked and therapeutic continue Acetazolamide and Ethosuximide as well no seizures ~ 30 years Constipation continue current medications has a colostomy due to previous obstruction, stool usually drains in colostomy DVT ppx IV heparin FULL CODE Total time spent on discharge = 50 minutes This includes examination of the patient, discharge planning, medication reconciliation, and communication with other providers. Discharge Instructions Patient is to take Xarelto 15mg twice a day for the next 17 days, and then switch to 20mg daily Patient will take Augmentin 500mg q8 for five more days
== END 2017-05-10 15:03 | DRG 919 ==
LOC: EDBD 12:45 → C.EDA 12:46 → C.2E 18:44 → ENRESERV 19:01 → C.MS4W 05-08 18:36
PROVIDERS: ADMIT Family Medicine; ATTEND Family Medicine
DX: T81.59 Other complications of foreign body accidentally left in body following procedure (principal); G91.1 Obstructive hydrocephalus; J69.0 Pneumonitis due to inhalation of food and vomit; N13.30 Unspecified hydronephrosis; G40.909 Epilepsy, unspecified, not intractable, without status epilepticus; R91.1 Solitary pulmonary nodule; Z93.3 Colostomy status; Z98.2 Presence of cerebrospinal fluid drainage device; R29.810 Facial weakness; R09.02 Hypoxemia; R06.89 Other abnormalities of breathing; K59.00 Constipation, unspecified; F79 Unspecified intellectual disabilities; Y92.009 Unspecified place in unspecified non-institutional (private) residence as the place of occurrence of the external cause; Y71.2 Prosthetic and other implants, materials and accessory cardiovascular devices associated with adverse incidents